=== PATIENT | male | born 1965 | race Caucasian/White ===

== ENCOUNTER 2021-09-17 18:51 | Inpatient (IN) | payer MEDICARE, MEDICAID ==
[~2021-09-17] VITALS: Ht 175.3 cm; Wt 101.2 kg
[~2021-09-17 18:51] MED LIST: BENZ1TAB7 PO; DIVA-18 PO; LOSA25TA26 PO; PHEN100O2 PO; PHEN32.46 PO; RISP2TAB85 PO; SERT100T PO
[2021-09-17] MEDS ORDERED: ACETAMINOPHEN 325MG TABLET PO STA (20:22)
[2021-09-17] MEDS ORDERED: LACTATED RINGERS 2,200 ML IV STA (20:27)
[2021-09-17] MEDS ORDERED: MIDAZOLAM HCL 2 MG/2 ML VIAL IV ONE (20:30)
[2021-09-17] MEDS ORDERED: HALOPERIDOL LACTATE 5MG/ML VIAL IM ONE (20:30)
[2021-09-17] MEDS ORDERED: CEFTRIAXONE 1 G PREMIX 50 ML IV ONE (20:30)
[2021-09-17 21:08] LABS: HEMATOCRIT. 40.1 % (42.0-52.0); HEMOGLOBIN. 13.8 g/dL (14.0-18.0); MEAN CORPUSCULAR HEMOGLOBIN 35.8 pg (28.0-32.0); MEAN CORPUSCULAR VOLUME 103.7 fL (80.0-94.0); MEAN PLATELET VOLUME 8.3 fl (7.4-10.4); PLATELET 81 x1000/uL (130-400); RED BLOOD CELL COUNT 3.87 mill/uL (4.7-6.1); RED CELL DISTRIBUTION WIDTH 13.4 % (11.6-14.6)
[2021-09-17 21:14] LABS: CHLORIDE 103 mEq/L (98-107)
[2021-09-17 21:32] LABS: PLATELET ESTIMATE DECREASED
[2021-09-17] MEDS ORDERED: VANCOMYCIN 1 G PREMIX 200 ML IV SCH (23:00)
[2021-09-17 23:37] LABS: CLARITY URINE CLEAR (CLEAR); COLOR URINE YELLOW (YELLOW); KETONES URINE NEGATIVE (NEGATIVE); LEUKOCYTE ESTERASE URINE NEGATIVE (NEGATIVE); NITRITE URINE NEGATIVE (NEGATIVE); OCCULT BLOOD URINE NEGATIVE (NEGATIVE); PH URINE 5.5 (4.5-8.0); PROTEIN URINE NEGATIVE (NEGATIVE)
[2021-09-18] MEDS ORDERED: LORAZEPAM 2MG/ML CPJ IV ONE (02:15)
[2021-09-18] MEDS ORDERED: HALOPERIDOL LACTATE 5MG/ML VIAL IM ONE (02:15)
[2021-09-18] MEDS ORDERED: LIDOCAINE HCL/EPINEPHRINE 1%-EPI 1:100,000 50 ML VIAL INFIL ONE (03:45)
[2021-09-18] MEDS ORDERED: LIDOCAINE HCL 1% 10 MG/ML 10ML VIAL IJ SCH (04:00)
[2021-09-18] MEDS ORDERED: NITROGLYCERIN 0.4MG TABLET SL SL PRN (07:15)
[2021-09-18] MEDS ORDERED: MAGNESIUM/ALUMINUM HYDROXIDE/SIMETHICONE 30ML UDC PO PRN (07:15)
[2021-09-18] MEDS ORDERED: IPRATROPIUM/ALBUTEROL 0.5-3(2.5)MG/3ML NEB NEB PRN (07:15)
[2021-09-18] MEDS ORDERED: ONDANSETRON HCL 4MG/2ML INJ IV PRN (07:15)
[2021-09-18] MEDS ORDERED: CEFTRIAXONE 1 G PREMIX 50 ML IV SCH (08:00)
[2021-09-18] MEDS: KETOROLAC 15MG/ML VIAL IV PRN (08:36)
[2021-09-18] MEDS: SODIUM CHLORIDE 0.9% 1,000 ML IV SCH ×2 (08:36→16:18)
[2021-09-18] MEDS ORDERED: LEVOFLOXACIN 500MG PREMIX 100 ML IV SCH (09:00)
[2021-09-18] MEDS: CHOLECALCIFEROL (D3) 1000 UNIT TABLET PO SCH (10:07)
[2021-09-18] MEDS: ASPIRIN 325MG EC TABLET PO SCH (10:07)
[2021-09-18] MEDS: ASCORBIC ACID 500 MG TABLET PO SCH ×2 (10:07→21:11)
[2021-09-18] MEDS: FAMOTIDINE 20MG TABLET PO SCH ×2 (10:07→21:11)
[2021-09-18] MEDS: ENOXAPARIN 40MG/0.4ML SYR SUBCUT SCH (10:07)
[2021-09-18] MEDS: ZINC SULFATE 220 MG ( 50 ) CAPSULE PO SCH (10:08)
[2021-09-18 10:27] VITALS: BP 107/73
[2021-09-18 12:00] VITALS: BP 107/73
[2021-09-18] MEDS ORDERED: NALOXONE HCL 0.4MG/ML VIAL IV PRN (15:15)
[2021-09-18 15:46] VITALS: BP 118/71
[2021-09-18] MEDS ORDERED: INFLUENZA VACCINE 05/PF 0.5 ML SYRINGE IM ONE (16:00)
[2021-09-18] MEDS: ACETAMINOPHEN 325MG TABLET PO PRN (16:13)
[2021-09-18 16:39] LABS: CREATINE KINASE 197 IU/L (39-308)
[2021-09-18 16:40] LABS: CREATINE KINASE MB FRACTION < 1.0 ng/mL (0.5-3.6)
[2021-09-18] MEDS ORDERED: LURA80TA MT (17:01)
[2021-09-18] MEDS ORDERED: METO25TA6 MT (17:01)
[2021-09-18] MEDS ORDERED: DIVA500T3 MT (17:04)
[2021-09-18 20:00] VITALS: BP 169/89
[2021-09-18] MEDS: CLONIDINE 0.1MG TABLET PO PRN (21:11)
[2021-09-18] MEDS: ZOLPIDEM TARTRATE 5MG TABLET PO PRN (23:43)
[2021-09-18] MEDS ORDERED: QUET300T20 PO (23:48)
[2021-09-19] VITALS: BP 116/86
[2021-09-19 00:29] LABS: CREATINE KINASE 195 IU/L (39-308)
[2021-09-19 00:30] LABS: CREATINE KINASE MB FRACTION 1.7 ng/mL (0.5-3.6)
[2021-09-19] MEDS: SODIUM CHLORIDE 0.9% 1,000 ML IV SCH ×2 (03:13→16:18)
[2021-09-19 04:00] VITALS: BP 157/76
[2021-09-19] MEDS: TRAMADOL 50MG TABLET PO PRN (06:30)
[2021-09-19 08:00] VITALS: BP 124/84
[2021-09-19 08:17] LABS: HEMATOCRIT. 38.2 % (42.0-52.0); HEMOGLOBIN. 13.3 g/dL (14.0-18.0); MEAN CORPUSCULAR VOLUME 103.8 fL (80.0-94.0); PLATELET 92 x1000/uL (130-400); RED BLOOD CELL COUNT 3.69 mill/uL (4.7-6.1); RED CELL DISTRIBUTION WIDTH 13.4 % (11.6-14.6)
[2021-09-19 09:09] LABS: CHLORIDE 109 mEq/L (98-107)
[2021-09-19 09:34] LABS: PHOSPHORUS 3.1 mg/dL (2.5-4.9)
[2021-09-19 09:35] LABS: LDL CHOLESTEROL 89 mg/dL (5-100)
[2021-09-19 09:36] LABS: T4 FREE 1.22 ng/dL (0.76-1.46)
[2021-09-19 09:38] LABS: HDL CHOLESTEROL 41 mg/dL (40-59)
[2021-09-19] MEDS: CHOLECALCIFEROL (D3) 1000 UNIT TABLET PO SCH (11:03)
[2021-09-19] MEDS: DIVALPROEX SODIUM 500MG DR TABLET PO SCH ×2 (11:04→16:40)
[2021-09-19] MEDS: FAMOTIDINE 20MG TABLET PO SCH ×2 (11:04→21:16)
[2021-09-19] MEDS: ASPIRIN 325MG EC TABLET PO SCH (11:04)
[2021-09-19] MEDS: ZINC SULFATE 220 MG ( 50 ) CAPSULE PO SCH (11:04)
[2021-09-19] MEDS: ASCORBIC ACID 500 MG TABLET PO SCH ×2 (11:04→21:16)
[2021-09-19] MEDS: METOPROLOL TARTRATE 25MG TABLET PO SCH (11:05)
[2021-09-19] MEDS: LEVOFLOXACIN 500MG PREMIX 100 ML IV SCH (11:06)
[2021-09-19] MEDS: CEFTRIAXONE 1,000 MG in DEXTROSE 5% WATER 50 ML IV SCH (11:06)
[2021-09-19] MEDS: LATUDA 40 MG PO SCH (11:07)
[2021-09-19] MEDS: ENOXAPARIN 40MG/0.4ML SYR SUBCUT SCH (11:12)
[2021-09-19 12:00] VITALS: BP 141/88
[2021-09-19 16:00] VITALS: BP 129/61
[2021-09-19] MEDS: KETOROLAC 15MG/ML VIAL IV PRN ×2 (16:08→22:06)
[2021-09-19] MEDS: BENZTROPINE MESYLATE 1MG TABLET PO SCH (16:40)
[2021-09-19 18:52] LABS: PLATELET ESTIMATE DECREASED
[2021-09-19 20:00] VITALS: BP 130/87
[2021-09-19] MEDS: ZOLPIDEM TARTRATE 5MG TABLET PO PRN (22:06)
[2021-09-20] VITALS: BP 133/90
[2021-09-20 04:00] VITALS: BP 136/82
[2021-09-20] MEDS: KETOROLAC 15MG/ML VIAL IV PRN ×3 (04:34→18:41)
[2021-09-20] MEDS: SODIUM CHLORIDE 0.9% 1,000 ML IV SCH ×2 (06:22)
[2021-09-20 08:00] VITALS: BP 138/88
[2021-09-20] MEDS: CEFTRIAXONE 1,000 MG in DEXTROSE 5% WATER 50 ML IV SCH (08:39)
[2021-09-20] MEDS: LEVOFLOXACIN 500MG PREMIX 100 ML IV SCH (08:40)
[2021-09-20] MEDS: DIVALPROEX SODIUM 500MG DR TABLET PO SCH ×2 (08:41→18:40)
[2021-09-20] MEDS: CHOLECALCIFEROL (D3) 1000 UNIT TABLET PO SCH (08:42)
[2021-09-20] MEDS: FAMOTIDINE 20MG TABLET PO SCH ×2 (08:42→21:17)
[2021-09-20] MEDS: ASCORBIC ACID 500 MG TABLET PO SCH ×2 (08:42→21:17)
[2021-09-20] MEDS: ZINC SULFATE 220 MG ( 50 ) CAPSULE PO SCH (08:43)
[2021-09-20] MEDS: ENOXAPARIN 40MG/0.4ML SYR SUBCUT SCH (08:45)
[2021-09-20] MEDS: METOPROLOL TARTRATE 25MG TABLET PO SCH (08:45)
[2021-09-20] MEDS: LATUDA 40 MG PO SCH (08:47)
[2021-09-20] MEDS: DOCUSATE SODIUM 100MG CAPSULE PO PRN (08:47)
[2021-09-20 12:00] VITALS: BP 122/78
[2021-09-20] MEDS ORDERED: FUROSEMIDE 20MG/2ML VIAL IVP SCH (12:15)
[2021-09-20 16:00] VITALS: BP 131/82
[2021-09-20 17:30] LABS: HEMATOCRIT. 38.5 % (42.0-52.0); HEMOGLOBIN. 13.2 g/dL (14.0-18.0); MEAN CORPUSCULAR HEMOGLOBIN 35.4 pg (28.0-32.0); MEAN CORPUSCULAR VOLUME 103.3 fL (80.0-94.0); MEAN PLATELET VOLUME 7.1 fl (7.4-10.4); PLATELET 133 x1000/uL (130-400); RED BLOOD CELL COUNT 3.73 mill/uL (4.7-6.1); RED CELL DISTRIBUTION WIDTH 13.3 % (11.6-14.6)
[2021-09-20 17:40] LABS: CHLORIDE 104 mEq/L (98-107)
[2021-09-20] MEDS: BENZTROPINE MESYLATE 1MG TABLET PO SCH (18:40)
[2021-09-20 18:49] LABS: PLATELET ESTIMATE NORMAL
[2021-09-20 20:40] VITALS: BP 158/100
[2021-09-20] MEDS: ZOLPIDEM TARTRATE 5MG TABLET PO PRN (21:18)
[2021-09-21 00:19] VITALS: BP 141/93
[2021-09-21 04:00] VITALS: BP 142/93
[2021-09-21 08:00] VITALS: BP 140/96
[2021-09-21] MEDS: LATUDA 40 MG PO SCH (09:00)
[2021-09-21] MEDS: ENOXAPARIN 40MG/0.4ML SYR SUBCUT SCH (09:29)
[2021-09-21] MEDS: CEFTRIAXONE 1,000 MG in DEXTROSE 5% WATER 50 ML IV SCH (09:29)
[2021-09-21] MEDS: FAMOTIDINE 20MG TABLET PO SCH ×2 (09:30→22:11)
[2021-09-21] MEDS: ZINC SULFATE 220 MG ( 50 ) CAPSULE PO SCH (09:30)
[2021-09-21] MEDS: METOPROLOL TARTRATE 25MG TABLET PO SCH (09:30)
[2021-09-21] MEDS: DIVALPROEX SODIUM 500MG DR TABLET PO SCH (09:30)
[2021-09-21] MEDS: ASPIRIN 325MG EC TABLET PO SCH ×2 (09:30→13:22)
[2021-09-21] MEDS: ASCORBIC ACID 500 MG TABLET PO SCH ×2 (09:30→22:11)
[2021-09-21] MEDS: CHOLECALCIFEROL (D3) 1000 UNIT TABLET PO SCH (09:32)
[2021-09-21 12:00] VITALS: BP 143/80
[2021-09-21 12:15] LABS: BG BASE EXCESS -0.9 mmol/L (-2.0-2.0); BG DEOXYHEMOGLOBIN 4.1 % (0.0-5.0); BG FRACTION INSPIRED OXYGEN 32; BG HCO3 ACT 21.5 mmol/L (22.0-26.0); BG METHEMOGLOBIN 0.2 % (0.0-1.5); BG OXYGEN SATURATION 95.9 % (92.0-98.5); BG OXYHEMOGLOBIN 94.7 % (94.0-97.0); BG PCO2 29.6 mmHg (35.0-45.0); BG PH 7.478 (7.350-7.450); BG PO2 77.3 mmHg (75.0-100.0); BG SAMPLE SITE RIGHT RADIAL; BG TOTAL HEMOGLOBIN 14.1 g/dL (12.0-18.0); BG VENT MODE NASAL CANNULA
[2021-09-21] MEDS ORDERED: ACETAMINOPHEN 650MG SUPP PR NR (12:45)
[2021-09-21] MEDS: LEVOFLOXACIN 500MG PREMIX 100 ML IV SCH (13:21)
[2021-09-21] MEDS: KETOROLAC 15MG/ML VIAL IV PRN (13:59)
[2021-09-21 16:00] VITALS: BP 131/89
[2021-09-21 20:00] VITALS: BP 138/94
[2021-09-21] MEDS ORDERED: VANCOMYCIN 1500MG in DEXTROSE 5% WATER 250ML IV NR (20:00)
[2021-09-21] MEDS: CEFEPIME 1,000 MG in DEXTROSE 5% WATER 50 ML IV SCH (22:10)
[2021-09-21] MEDS: VALPROATE SODIUM 250MG/5ML UDC PO SCH (22:10)
[2021-09-21] MEDS: BENZTROPINE MESYLATE 1MG TABLET PO SCH (22:11)
[2021-09-21] MEDS: ZOLPIDEM TARTRATE 5MG TABLET PO PRN (22:39)
[2021-09-21] MEDS: TRAMADOL 50MG TABLET PO PRN (22:41)
[2021-09-22] VITALS: BP 128/90
[2021-09-22] MEDS: SODIUM CHLORIDE 0.45% 1,000 ML IV SCH (03:40)
[2021-09-22 04:00] VITALS: BP 136/83
[2021-09-22] MEDS: ACETAMINOPHEN 325MG TABLET PO PRN ×3 (04:03→18:48)
[2021-09-22] MEDS: LORAZEPAM 2MG/ML CPJ IV PRN ×2 (04:21→17:14)
[2021-09-22] MEDS: CEFEPIME 1,000 MG in DEXTROSE 5% WATER 50 ML IV SCH ×2 (05:47→22:04)
[2021-09-22 06:52] LABS: HEMATOCRIT. 38.7 % (42.0-52.0); HEMOGLOBIN. 13.1 g/dL (14.0-18.0); MEAN CORPUSCULAR HEMOGLOBIN 35.3 pg (28.0-32.0); MEAN CORPUSCULAR VOLUME 104.6 fL (80.0-94.0); MEAN PLATELET VOLUME 7.4 fl (7.4-10.4); PLATELET 138 x1000/uL (130-400); RED CELL DISTRIBUTION WIDTH 13.6 % (11.6-14.6)
[2021-09-22 07:06] LABS: PHOSPHORUS 2.2 mg/dL (2.5-4.9)
[2021-09-22] MEDS ORDERED: VANCOMYCIN 1 G PREMIX 200 ML IV SCH (08:00)
[2021-09-22] MEDS: GUAIFENESIN 200MG/10ML SUGAR FREE UDC PO PRN (09:37)
[2021-09-22] MEDS: LATUDA 40 MG PO SCH (09:37)
[2021-09-22] MEDS: ZINC SULFATE 220 MG ( 50 ) CAPSULE PO SCH (09:38)
[2021-09-22] MEDS: ENOXAPARIN 30MG/0.3ML SYR SUBCUT SCH ×2 (09:38→22:05)
[2021-09-22] MEDS: ASCORBIC ACID 500 MG TABLET PO SCH ×2 (09:39→22:04)
[2021-09-22] MEDS: CHOLECALCIFEROL (D3) 1000 UNIT TABLET PO SCH (09:39)
[2021-09-22] MEDS: METOPROLOL TARTRATE 25MG TABLET PO SCH (09:39)
[2021-09-22] MEDS: ASPIRIN 325MG EC TABLET PO SCH (09:39)
[2021-09-22] MEDS: VALPROATE SODIUM 250MG/5ML UDC PO SCH ×2 (09:40→18:45)
[2021-09-22] MEDS: FAMOTIDINE 20MG TABLET PO SCH ×2 (09:40→22:04)
[2021-09-22] MEDS ORDERED: POTASSIUM PHOS,M-BASIC-D-BASIC 20 MMOL in DEXT 5% WATER 243.3333 ML IV SCH (12:00)
[2021-09-22] MEDS: VANCOMYCIN 1250MG in DEXTROSE 5% WATER 250ML IV SCH (13:02)
[2021-09-22 13:09] LABS: PLATELET ESTIMATE NORMAL
[2021-09-22] MEDS: BENZTROPINE MESYLATE 1MG TABLET PO SCH (18:45)
[2021-09-22 20:00] VITALS: BP 134/83
[2021-09-22] MEDS ORDERED: IOHEXOL-350 100 ML BOTTLE ONE (20:56)
[2021-09-23] VITALS: BP 136/79
[2021-09-23] MEDS: ACETAMINOPHEN 325MG TABLET PO PRN ×3 (00:02→16:54)
[2021-09-23 04:00] VITALS: BP 131/48
[2021-09-23] MEDS: SODIUM CHLORIDE 0.45% 1,000 ML IV SCH ×2 (04:53→16:54)
[2021-09-23] MEDS: VANCOMYCIN 1250MG in DEXTROSE 5% WATER 250ML IV SCH ×2 (05:59→23:24)
[2021-09-23 07:50] LABS: HEMOGLOBIN. 12.8 g/dL (14.0-18.0); MEAN CORPUSCULAR HEMOGLOBIN 35.5 pg (28.0-32.0); MEAN CORPUSCULAR VOLUME 105.3 fL (80.0-94.0); MEAN PLATELET VOLUME 7.7 fl (7.4-10.4); PLATELET 129 x1000/uL (130-400); RED BLOOD CELL COUNT 3.61 mill/uL (4.7-6.1); RED CELL DISTRIBUTION WIDTH 13.5 % (11.6-14.6)
[2021-09-23 08:08] LABS: PHOSPHORUS 4.1 mg/dL (2.5-4.9)
[2021-09-23 08:30] VITALS: BP 159/95
[2021-09-23] MEDS: CEFEPIME 1,000 MG in DEXTROSE 5% WATER 50 ML IV SCH ×2 (08:38→17:33)
[2021-09-23] MEDS: ZINC SULFATE 220 MG ( 50 ) CAPSULE PO SCH (08:38)
[2021-09-23] MEDS: ENOXAPARIN 30MG/0.3ML SYR SUBCUT SCH ×2 (08:38→21:28)
[2021-09-23] MEDS: LATUDA 40 MG PO SCH (08:38)
[2021-09-23] MEDS: VALPROATE SODIUM 250MG/5ML UDC PO SCH ×2 (08:38→16:53)
[2021-09-23] MEDS: FAMOTIDINE 20MG TABLET PO SCH ×2 (08:39→21:28)
[2021-09-23] MEDS: CHOLECALCIFEROL (D3) 1000 UNIT TABLET PO SCH (08:39)
[2021-09-23] MEDS: ASPIRIN 325MG EC TABLET PO SCH (08:39)
[2021-09-23] MEDS: METOPROLOL TARTRATE 25MG TABLET PO SCH (08:39)
[2021-09-23] MEDS: ASCORBIC ACID 500 MG TABLET PO SCH ×2 (08:39→21:28)
[2021-09-23] MEDS ORDERED: POTASSIUM CHLORIDE 20MEQ/PACKET PO SCH (09:15)
[2021-09-23] MEDS: IPRATROPIUM BROMIDE (0.02%) 0.5MG/2.5ML NEB HHN SCH ×3 (09:28→21:00)
[2021-09-23 12:00] VITALS: BP 132/88
[2021-09-23] MEDS ORDERED: SODIUM CHLORIDE 0.9% 1,000 ML IV SCH (12:45)
[2021-09-23 16:00] VITALS: BP 143/83
[2021-09-23 16:35] LABS: PLATELET ESTIMATE SLIGHTLY DECREASED
[2021-09-23] MEDS: BENZTROPINE MESYLATE 1MG TABLET PO SCH (16:54)
[2021-09-23 20:42] VITALS: BP 135/90
[2021-09-23] MEDS: NYSTATIN POWDER 15GM TOP SCH (21:28)
[2021-09-23] MEDS: LORAZEPAM 2MG/ML CPJ IV PRN (21:41)
[2021-09-24 00:09] VITALS: BP 145/89
[2021-09-24] MEDS: SODIUM CHLORIDE 0.45% 1,000 ML IV SCH ×4 (01:20→19:55)
[2021-09-24] MEDS: IPRATROPIUM BROMIDE (0.02%) 0.5MG/2.5ML NEB HHN SCH ×4 (02:46→21:08)
[2021-09-24 04:00] VITALS: BP 135/85
[2021-09-24] MEDS: CEFEPIME 1,000 MG in DEXTROSE 5% WATER 50 ML IV SCH ×2 (05:36→17:40)
[2021-09-24 07:25] LABS: HEMATOCRIT. 35.7 % (42.0-52.0); HEMOGLOBIN. 12.2 g/dL (14.0-18.0); MEAN CORPUSCULAR HEMOGLOBIN 35.5 pg (28.0-32.0); MEAN CORPUSCULAR VOLUME 103.7 fL (80.0-94.0); MEAN PLATELET VOLUME 7.6 fl (7.4-10.4); PLATELET 131 x1000/uL (130-400); RED BLOOD CELL COUNT 3.45 mill/uL (4.7-6.1); RED CELL DISTRIBUTION WIDTH 13.9 % (11.6-14.6)
[2021-09-24 08:00] VITALS: BP 137/84
[2021-09-24] MEDS: METOPROLOL TARTRATE 25MG TABLET PO SCH (08:40)
[2021-09-24] MEDS: ZINC SULFATE 220 MG ( 50 ) CAPSULE PO SCH (08:40)
[2021-09-24] MEDS: FAMOTIDINE 20MG TABLET PO SCH ×2 (08:40→19:56)
[2021-09-24] MEDS: VALPROATE SODIUM 250MG/5ML UDC PO SCH ×2 (08:41→17:39)
[2021-09-24] MEDS: CHOLECALCIFEROL (D3) 1000 UNIT TABLET PO SCH (08:41)
[2021-09-24] MEDS: LATUDA 40 MG PO SCH (08:41)
[2021-09-24] MEDS: ASCORBIC ACID 500 MG TABLET PO SCH ×2 (08:41→19:56)
[2021-09-24] MEDS: ASPIRIN 325MG EC TABLET PO SCH (08:41)
[2021-09-24] MEDS: NYSTATIN POWDER 15GM TOP SCH ×2 (08:42→17:40)
[2021-09-24] MEDS: ENOXAPARIN 30MG/0.3ML SYR SUBCUT SCH ×2 (08:42→19:56)
[2021-09-24] MEDS: ACETAMINOPHEN 325MG TABLET PO PRN (08:43)
[2021-09-24 11:36] LABS: PLATELET ESTIMATE NORMAL
[2021-09-24 12:00] VITALS: BP 122/84
[2021-09-24 16:00] VITALS: BP 131/87
[2021-09-24] MEDS: BENZTROPINE MESYLATE 1MG TABLET PO SCH (17:40)
[2021-09-24] MEDS: VANCOMYCIN 1 G PREMIX 200 ML IV SCH (19:55)
[2021-09-24 20:00] VITALS: BP 146/90
[2021-09-25] VITALS: BP 132/76
[2021-09-25] MEDS: IPRATROPIUM BROMIDE (0.02%) 0.5MG/2.5ML NEB HHN SCH ×4 (02:10→20:52)
[2021-09-25 04:00] VITALS: BP 164/89
[2021-09-25] MEDS: SODIUM CHLORIDE 0.45% 1,000 ML IV SCH ×2 (04:38→08:35)
[2021-09-25 05:29] LABS: CLARITY URINE CLOUDY (CLEAR); COLOR URINE DARK YELLOW (YELLOW); KETONES URINE NEGATIVE (NEGATIVE); LEUKOCYTE ESTERASE URINE 1+ (NEGATIVE); NITRITE URINE NEGATIVE (NEGATIVE); OCCULT BLOOD URINE 3+ (NEGATIVE); PROTEIN URINE 1+ (NEGATIVE); SPECIFIC GRAVITY URINE 1.025 (1.005-1.030)
[2021-09-25] MEDS: LORAZEPAM 2MG/ML CPJ IV PRN (05:49)
[2021-09-25] MEDS: CEFEPIME 1,000 MG in DEXTROSE 5% WATER 50 ML IV SCH ×2 (05:49→18:39)
[2021-09-25] MEDS: CLONIDINE 0.1MG TABLET PO PRN (05:50)
[2021-09-25 06:57] LABS: HEMATOCRIT. 35.7 % (42.0-52.0); HEMOGLOBIN. 12.1 g/dL (14.0-18.0); MEAN CORPUSCULAR HEMOGLOBIN 35.6 pg (28.0-32.0); MEAN PLATELET VOLUME 7.9 fl (7.4-10.4); PLATELET 137 x1000/uL (130-400); RED CELL DISTRIBUTION WIDTH 13.4 % (11.6-14.6)
[2021-09-25 07:12] LABS: CHLORIDE 112 mEq/L (98-107)
[2021-09-25 08:00] VITALS: BP 145/86
[2021-09-25] MEDS: ACETAMINOPHEN 325MG TABLET PO PRN (08:04)
[2021-09-25] MEDS: VALPROATE SODIUM 250MG/5ML UDC PO SCH ×2 (08:35→18:39)
[2021-09-25] MEDS: ENOXAPARIN 30MG/0.3ML SYR SUBCUT SCH ×2 (08:35→21:00)
[2021-09-25] MEDS: ASCORBIC ACID 500 MG TABLET PO SCH ×2 (08:35→20:59)
[2021-09-25] MEDS: ASPIRIN 325MG EC TABLET PO SCH (08:36)
[2021-09-25] MEDS: METOPROLOL TARTRATE 25MG TABLET PO SCH (08:36)
[2021-09-25] MEDS: ZINC SULFATE 220 MG ( 50 ) CAPSULE PO SCH (08:36)
[2021-09-25] MEDS: FAMOTIDINE 20MG TABLET PO SCH ×2 (08:36→20:59)
[2021-09-25] MEDS: CHOLECALCIFEROL (D3) 1000 UNIT TABLET PO SCH (08:39)
[2021-09-25] MEDS: NYSTATIN POWDER 15GM TOP SCH ×2 (08:42→18:40)
[2021-09-25] MEDS: LATUDA 40 MG PO SCH (08:42)
[2021-09-25] MEDS: FUROSEMIDE 40MG/4ML VIAL IVP SCH (10:54)
[2021-09-25] MEDS: TAMSULOSIN HCL 0.4MG SR CAPSULE PO SCH (10:59)
[2021-09-25 11:26] LABS: PLATELET ESTIMATE NORMAL
[2021-09-25 12:00] VITALS: BP 115/73
[2021-09-25 16:00] VITALS: BP 124/76
[2021-09-25] MEDS: BENZTROPINE MESYLATE 1MG TABLET PO SCH (18:40)
[2021-09-25 20:00] VITALS: BP 129/82
[2021-09-25] MEDS: VANCOMYCIN 1 G PREMIX 200 ML IV SCH (21:00)
[2021-09-26] VITALS: BP 125/87
[2021-09-26 04:00] VITALS: BP 140/85
[2021-09-26] MEDS: IPRATROPIUM BROMIDE (0.02%) 0.5MG/2.5ML NEB HHN SCH ×4 (04:56→21:52)
[2021-09-26 06:18] LABS: HEMATOCRIT. 34.7 % (42.0-52.0); HEMOGLOBIN. 11.9 g/dL (14.0-18.0); MEAN CORPUSCULAR HEMOGLOBIN 35.5 pg (28.0-32.0); MEAN CORPUSCULAR VOLUME 103.5 fL (80.0-94.0); MEAN PLATELET VOLUME 8.2 fl (7.4-10.4); PLATELET 163 x1000/uL (130-400); RED BLOOD CELL COUNT 3.35 mill/uL (4.7-6.1); RED CELL DISTRIBUTION WIDTH 13.5 % (11.6-14.6)
[2021-09-26 06:23] LABS: CHLORIDE 111 mEq/L (98-107)
[2021-09-26] MEDS: CEFEPIME 1,000 MG in DEXTROSE 5% WATER 50 ML IV SCH ×2 (06:26→18:31)
[2021-09-26 06:29] LABS: PHOSPHORUS 3.1 mg/dL (2.5-4.9)
[2021-09-26 08:00] VITALS: BP 143/82
[2021-09-26] MEDS: VALPROATE SODIUM 250MG/5ML UDC PO SCH ×2 (09:17→18:31)
[2021-09-26] MEDS: ENOXAPARIN 30MG/0.3ML SYR SUBCUT SCH ×2 (09:17→20:55)
[2021-09-26] MEDS: TAMSULOSIN HCL 0.4MG SR CAPSULE PO SCH (09:18)
[2021-09-26] MEDS: DOCUSATE SODIUM 100MG CAPSULE PO PRN (09:18)
[2021-09-26] MEDS: CHOLECALCIFEROL (D3) 1000 UNIT TABLET PO SCH (09:18)
[2021-09-26] MEDS: ASPIRIN 325MG EC TABLET PO SCH (09:19)
[2021-09-26] MEDS: ACETAMINOPHEN 325MG TABLET PO PRN ×2 (09:19→21:00)
[2021-09-26] MEDS: FAMOTIDINE 20MG TABLET PO SCH ×2 (09:19→20:55)
[2021-09-26] MEDS: METOPROLOL TARTRATE 25MG TABLET PO SCH (09:19)
[2021-09-26] MEDS: ZINC SULFATE 220 MG ( 50 ) CAPSULE PO SCH (09:19)
[2021-09-26] MEDS: FUROSEMIDE 40MG/4ML VIAL IVP SCH (09:19)
[2021-09-26] MEDS: ASCORBIC ACID 500 MG TABLET PO SCH ×2 (09:19→20:54)
[2021-09-26] MEDS: NYSTATIN POWDER 15GM TOP SCH ×2 (09:21→18:31)
[2021-09-26] MEDS: LATUDA 40 MG PO SCH (09:22)
[2021-09-26 12:00] VITALS: BP 148/91
[2021-09-26 13:47] LABS: PLATELET ESTIMATE NORMAL
[2021-09-26] MEDS: VANCOMYCIN 1250MG in DEXTROSE 5% WATER 250ML IV SCH (13:52)
[2021-09-26 16:00] VITALS: BP 133/79
[2021-09-26] MEDS: BENZTROPINE MESYLATE 1MG TABLET PO SCH (18:30)
[2021-09-26 20:00] VITALS: BP 127/83
[2021-09-26] MEDS: GUAIFENESIN 200MG/10ML SUGAR FREE UDC PO PRN (20:54)
[2021-09-26] MEDS ORDERED: LORAZEPAM 2MG/ML CPJ IV PRN (23:00)
[2021-09-27] VITALS: BP 135/79
[2021-09-27] MEDS: IPRATROPIUM BROMIDE (0.02%) 0.5MG/2.5ML NEB HHN SCH ×4 (00:57→21:14)
[2021-09-27 04:00] VITALS: BP 133/87
[2021-09-27] MEDS: CEFEPIME 1,000 MG in DEXTROSE 5% WATER 50 ML IV SCH ×2 (05:43→17:30)
[2021-09-27] MEDS: VANCOMYCIN 1250MG in DEXTROSE 5% WATER 250ML IV SCH (06:35)
[2021-09-27 07:58] LABS: CHLORIDE 109 mEq/L (98-107)
[2021-09-27 08:00] VITALS: BP 128/75
[2021-09-27] MEDS: FUROSEMIDE 40MG/4ML VIAL IVP SCH (10:05)
[2021-09-27] MEDS: LATUDA 40 MG PO SCH (10:05)
[2021-09-27] MEDS: ENOXAPARIN 30MG/0.3ML SYR SUBCUT SCH ×2 (10:05→20:38)
[2021-09-27] MEDS: FAMOTIDINE 20MG TABLET PO SCH ×2 (10:06→20:37)
[2021-09-27] MEDS: CHOLECALCIFEROL (D3) 1000 UNIT TABLET PO SCH (10:06)
[2021-09-27] MEDS: METOPROLOL TARTRATE 25MG TABLET PO SCH (10:06)
[2021-09-27] MEDS: ASCORBIC ACID 500 MG TABLET PO SCH ×2 (10:06→20:37)
[2021-09-27] MEDS: ZINC SULFATE 220 MG ( 50 ) CAPSULE PO SCH (10:06)
[2021-09-27] MEDS: ASPIRIN 325MG TABLET NG SCH (10:07)
[2021-09-27] MEDS: GUAIFENESIN 200MG/10ML SUGAR FREE UDC PO PRN ×2 (10:07→21:23)
[2021-09-27] MEDS: NYSTATIN POWDER 15GM TOP SCH ×2 (10:08→17:28)
[2021-09-27] MEDS: VALPROATE SODIUM 250MG/5ML UDC PO SCH ×2 (10:08→17:28)
[2021-09-27 11:14] LABS: CREATINE KINASE 493 IU/L (39-308)
[2021-09-27 12:00] VITALS: BP 134/84
[2021-09-27 16:00] VITALS: BP 125/83
[2021-09-27] MEDS: BENZTROPINE MESYLATE 1MG TABLET PO SCH (17:28)
[2021-09-27 20:00] VITALS: BP 100/69
[2021-09-27] MEDS: LORAZEPAM 2MG/ML CPJ IV PRN (20:37)
[2021-09-27] MEDS: ACETAMINOPHEN 325MG TABLET PO PRN (23:21)
[2021-09-27] MEDS ORDERED: PHENAZOPYRIDINE HCL 100MG TABLET PO NR (23:45)
[2021-09-28] VITALS: BP 122/82
[2021-09-28] MEDS: VANCOMYCIN 1250MG in DEXTROSE 5% WATER 250ML IV SCH (01:03)
[2021-09-28] MEDS: IPRATROPIUM BROMIDE (0.02%) 0.5MG/2.5ML NEB HHN SCH ×3 (01:13→16:36)
[2021-09-28] MEDS: ACETYLCYSTEINE 100MG/ML 10% VIAL 4ML INH SCH ×3 (01:13→16:36)
[2021-09-28 04:00] VITALS: BP 150/72
[2021-09-28] MEDS: CEFEPIME 1,000 MG in DEXTROSE 5% WATER 50 ML IV SCH (06:20)
[2021-09-28 08:30] VITALS: BP 138/88
[2021-09-28] MEDS: VALPROATE SODIUM 250MG/5ML UDC PO SCH ×2 (09:35→17:49)
[2021-09-28] MEDS: NYSTATIN POWDER 15GM TOP SCH ×2 (09:35→17:50)
[2021-09-28] MEDS: LATUDA 40 MG PO SCH (09:35)
[2021-09-28] MEDS: FUROSEMIDE 40MG/4ML VIAL IVP SCH (09:35)
[2021-09-28] MEDS: ASPIRIN 325MG TABLET NG SCH (09:36)
[2021-09-28] MEDS: ZINC SULFATE 220 MG ( 50 ) CAPSULE PO SCH (09:37)
[2021-09-28] MEDS: FAMOTIDINE 20MG TABLET PO SCH ×2 (09:37→22:16)
[2021-09-28] MEDS: CHOLECALCIFEROL (D3) 1000 UNIT TABLET PO SCH (09:37)
[2021-09-28] MEDS: METOPROLOL TARTRATE 25MG TABLET PO SCH (09:37)
[2021-09-28] MEDS: ASCORBIC ACID 500 MG TABLET PO SCH ×2 (09:37→22:16)
[2021-09-28 10:11] LABS: HEMATOCRIT. 37.6 % (42.0-52.0); HEMOGLOBIN. 12.8 g/dL (14.0-18.0); MEAN CORPUSCULAR VOLUME 106.1 fL (80.0-94.0); MEAN PLATELET VOLUME 7.9 fl (7.4-10.4); PLATELET 289 x1000/uL (130-400); RED BLOOD CELL COUNT 3.54 mill/uL (4.7-6.1); RED CELL DISTRIBUTION WIDTH 13.3 % (11.6-14.6)
[2021-09-28 10:30] LABS: CHLORIDE 108 mEq/L (98-107)
[2021-09-28 10:42] LABS: CREATINE KINASE 303 IU/L (39-308)
[2021-09-28] MEDS: ENOXAPARIN 30MG/0.3ML SYR SUBCUT SCH ×2 (11:02→22:17)
[2021-09-28] MEDS ORDERED: HYDROCODONE/ACETAMINOPHEN 5/325MG TABLET PO PRN (11:15)
[2021-09-28] MEDS ORDERED: NALOXONE HCL 0.4MG/ML VIAL IV PRN (11:30)
[2021-09-28 12:00] VITALS: BP 123/91
[2021-09-28] MEDS: FUROSEMIDE 20MG TABLET PO SCH (13:36)
[2021-09-28 14:56] LABS: NUCLEATED RED BLOOD CELLS 1 /100 WBC; PLATELET ESTIMATE NORMAL
[2021-09-28] MEDS ORDERED: VANCOMYCIN 1 G PREMIX 200 ML IV SCH (15:00)
[2021-09-28 16:00] VITALS: BP 118/84
[2021-09-28] MEDS: BENZTROPINE MESYLATE 1MG TABLET PO SCH (17:49)
[2021-09-28] MEDS: LORAZEPAM 2MG/ML CPJ IV PRN (17:50)
[2021-09-28 20:00] VITALS: BP 127/77
[2021-09-29] VITALS: BP 151/90
[2021-09-29] MEDS: ACETAMINOPHEN 325MG TABLET PO PRN ×2 (00:15→12:43)
[2021-09-29] MEDS: LORAZEPAM 2MG/ML CPJ IV PRN (01:10)
[2021-09-29] MEDS: ACETYLCYSTEINE 100MG/ML 10% VIAL 4ML INH SCH ×2 (01:32→09:36)
[2021-09-29] MEDS: IPRATROPIUM BROMIDE (0.02%) 0.5MG/2.5ML NEB HHN SCH ×4 (01:32→21:42)
[2021-09-29 04:00] VITALS: BP 123/95
[2021-09-29] MEDS: CLONIDINE 0.1MG TABLET PO PRN (06:15)
[2021-09-29 06:24] LABS: HEMOGLOBIN. 12.7 g/dL (14.0-18.0); MEAN CORPUSCULAR HEMOGLOBIN 36.1 pg (28.0-32.0); MEAN CORPUSCULAR VOLUME 104.9 fL (80.0-94.0); MEAN PLATELET VOLUME 7.5 fl (7.4-10.4); PLATELET 327 x1000/uL (130-400); RED BLOOD CELL COUNT 3.53 mill/uL (4.7-6.1); RED CELL DISTRIBUTION WIDTH 13.9 % (11.6-14.6)
[2021-09-29 06:47] LABS: PHOSPHORUS 3.6 mg/dL (2.5-4.9)
[2021-09-29 08:00] VITALS: BP 119/71
[2021-09-29] MEDS: VALPROATE SODIUM 250MG/5ML UDC PO SCH ×2 (08:26→16:33)
[2021-09-29] MEDS: ASPIRIN 325MG TABLET NG SCH (08:26)
[2021-09-29] MEDS: CHOLECALCIFEROL (D3) 1000 UNIT TABLET PO SCH (08:26)
[2021-09-29] MEDS: METOPROLOL TARTRATE 25MG TABLET PO SCH (08:27)
[2021-09-29] MEDS: ZINC SULFATE 220 MG ( 50 ) CAPSULE PO SCH (08:27)
[2021-09-29] MEDS: FUROSEMIDE 20MG TABLET PO SCH (08:27)
[2021-09-29] MEDS: FAMOTIDINE 20MG TABLET PO SCH ×2 (08:27→20:59)
[2021-09-29] MEDS: ENOXAPARIN 30MG/0.3ML SYR SUBCUT SCH ×2 (08:27→20:59)
[2021-09-29] MEDS: NYSTATIN POWDER 15GM TOP SCH ×2 (08:29→16:33)
[2021-09-29] MEDS: ASCORBIC ACID 500 MG TABLET PO SCH ×2 (08:29→20:58)
[2021-09-29] MEDS: LATUDA 40 MG PO SCH (08:29)
[2021-09-29 12:00] VITALS: BP 125/74
[2021-09-29 16:00] VITALS: BP 104/60
[2021-09-29] MEDS: BENZTROPINE MESYLATE 1MG TABLET PO SCH (16:33)
[2021-09-29] MEDS: PIPERACILLIN/TAZOBACTAM 3.375 G in DEXTROSE 5% WATER 50 ML IV SCH (16:33)
[2021-09-29 18:11] LABS: PLATELET ESTIMATE NORMAL
[2021-09-29 20:00] VITALS: BP 126/83
[2021-09-29] MEDS: VANCOMYCIN 1250MG in DEXTROSE 5% WATER 250ML IV SCH (20:58)
[2021-09-30] VITALS: BP 132/82
[2021-09-30] MEDS: ACETAMINOPHEN 325MG TABLET PO PRN ×2 (00:04→08:57)
[2021-09-30] MEDS: PIPERACILLIN/TAZOBACTAM 3.375 G in DEXTROSE 5% WATER 50 ML IV SCH ×4 (00:04→22:17)
[2021-09-30] MEDS: ACETYLCYSTEINE 100MG/ML 10% VIAL 4ML INH SCH ×3 (01:06→12:58)
[2021-09-30] MEDS: IPRATROPIUM BROMIDE (0.02%) 0.5MG/2.5ML NEB HHN SCH ×4 (01:06→21:07)
[2021-09-30 04:00] VITALS: BP 135/78
[2021-09-30 06:41] LABS: BASOPHILS % 0.8 % (0.0-2.0); EOSINOPHILS % 0.8 % (0.0-5.0); HEMATOCRIT. 38.7 % (42.0-52.0); HEMOGLOBIN. 13.2 g/dL (14.0-18.0); LYMPHOCYTES % 18.8 % (20.0-50.0); MEAN CORPUSCULAR HEMOGLOBIN 35.8 pg (28.0-32.0); MEAN CORPUSCULAR VOLUME 105.5 fL (80.0-94.0); MEAN PLATELET VOLUME 7.3 fl (7.4-10.4); NEUTROPHILS % 66.6 % (40.0-76.0); PLATELET 421 x1000/uL (130-400); RED BLOOD CELL COUNT 3.67 mill/uL (4.7-6.1); RED CELL DISTRIBUTION WIDTH 13.7 % (11.6-14.6)
[2021-09-30 08:00] VITALS: BP 141/87
[2021-09-30] MEDS: FUROSEMIDE 20MG TABLET PO SCH (08:56)
[2021-09-30] MEDS: METOPROLOL TARTRATE 25MG TABLET PO SCH (08:56)
[2021-09-30] MEDS: CHOLECALCIFEROL (D3) 1000 UNIT TABLET PO SCH (08:56)
[2021-09-30] MEDS: ZINC SULFATE 220 MG ( 50 ) CAPSULE PO SCH (08:56)
[2021-09-30] MEDS: ASPIRIN 325MG TABLET NG SCH (08:56)
[2021-09-30] MEDS: ASCORBIC ACID 500 MG TABLET PO SCH ×2 (08:56→21:33)
[2021-09-30] MEDS: FAMOTIDINE 20MG TABLET PO SCH ×2 (08:56→21:33)
[2021-09-30] MEDS: LATUDA 40 MG PO SCH (08:57)
[2021-09-30] MEDS: VALPROATE SODIUM 250MG/5ML UDC PO SCH ×2 (08:57→17:36)
[2021-09-30] MEDS: NYSTATIN POWDER 15GM TOP SCH ×2 (09:00→17:36)
[2021-09-30 12:00] VITALS: BP 123/75
[2021-09-30] MEDS: ENOXAPARIN 30MG/0.3ML SYR SUBCUT SCH ×2 (12:08→21:34)
[2021-09-30] MEDS: VANCOMYCIN 1250MG in DEXTROSE 5% WATER 250ML IV SCH (12:20)
[2021-09-30 16:00] VITALS: BP 131/75
[2021-09-30] MEDS: BENZTROPINE MESYLATE 1MG TABLET PO SCH (17:35)
[2021-09-30 20:00] VITALS: BP 126/78
[2021-09-30] MEDS: LORAZEPAM 2MG/ML CPJ IV PRN (22:21)
[2021-10-01] VITALS: BP 108/73
[2021-10-01] MEDS: IPRATROPIUM BROMIDE (0.02%) 0.5MG/2.5ML NEB HHN SCH ×4 (00:49→20:55)
[2021-10-01] MEDS: ACETYLCYSTEINE 100MG/ML 10% VIAL 4ML INH SCH ×4 (00:50→15:02)
[2021-10-01 04:00] VITALS: BP 126/85
[2021-10-01] MEDS: ACETAMINOPHEN 325MG TABLET PO PRN ×3 (04:29→15:06)
[2021-10-01] MEDS: VANCOMYCIN 1250MG in DEXTROSE 5% WATER 250ML IV SCH (04:53)
[2021-10-01] MEDS: PIPERACILLIN/TAZOBACTAM 3.375 G in DEXTROSE 5% WATER 50 ML IV SCH ×3 (06:28→21:27)
[2021-10-01] MEDS: SODIUM CHLORIDE 0.45% 1,000 ML IV SCH ×3 (06:30→23:17)
[2021-10-01 08:00] VITALS: BP 121/72
[2021-10-01] MEDS: CHOLECALCIFEROL (D3) 1000 UNIT TABLET PO SCH (09:00)
[2021-10-01] MEDS: ASPIRIN 325MG TABLET NG SCH (09:01)
[2021-10-01] MEDS: METOPROLOL TARTRATE 25MG TABLET PO SCH (09:01)
[2021-10-01] MEDS: ASCORBIC ACID 500 MG TABLET PO SCH ×2 (09:02→21:23)
[2021-10-01] MEDS: ZINC SULFATE 220 MG ( 50 ) CAPSULE PO SCH (09:02)
[2021-10-01] MEDS: VALPROATE SODIUM 250MG/5ML UDC PO SCH ×2 (09:08→14:24)
[2021-10-01] MEDS: FAMOTIDINE 20MG TABLET PO SCH ×2 (09:08→21:23)
[2021-10-01] MEDS: LATUDA 40 MG PO SCH (09:12)
[2021-10-01] MEDS: NYSTATIN POWDER 15GM TOP SCH ×2 (09:25→14:25)
[2021-10-01 10:24] LABS: BASOPHILS % 0.8 % (0.0-2.0); EOSINOPHILS % 0.3 % (0.0-5.0); HEMATOCRIT. 37.7 % (42.0-52.0); HEMOGLOBIN. 12.4 g/dL (14.0-18.0); LYMPHOCYTES % 14.7 % (20.0-50.0); MEAN CORPUSCULAR VOLUME 106.2 fL (80.0-94.0); MEAN PLATELET VOLUME 7.3 fl (7.4-10.4); NEUTROPHILS % 70.2 % (40.0-76.0); PLATELET 391 x1000/uL (130-400); RED BLOOD CELL COUNT 3.56 mill/uL (4.7-6.1); RED CELL DISTRIBUTION WIDTH 13.9 % (11.6-14.6)
[2021-10-01 10:42] LABS: VANCOMYCIN TROUGH 28.2 ug/mL (5.0-10.0)
[2021-10-01 12:00] VITALS: BP 106/68
[2021-10-01] MEDS ORDERED: LIDOCAINE HCL 1% 10 MG/ML 10ML VIAL ONE ×2 (13:20→14:00)
[2021-10-01] MEDS: BENZTROPINE MESYLATE 1MG TABLET PO SCH (14:24)
[2021-10-01] MEDS: ENOXAPARIN 30MG/0.3ML SYR SUBCUT SCH ×2 (14:25→21:24)
[2021-10-01 16:00] VITALS: BP 100/39
[2021-10-01 20:00] VITALS: BP 107/68
[2021-10-01] MEDS ORDERED: VANCOMYCIN 1 G PREMIX 200 ML IV SCH (23:00)
[2021-10-02] VITALS: BP 133/74
[2021-10-02] MEDS: ACETYLCYSTEINE 100MG/ML 10% VIAL 4ML INH SCH ×3 (02:32→21:39)
[2021-10-02] MEDS: IPRATROPIUM BROMIDE (0.02%) 0.5MG/2.5ML NEB HHN SCH ×4 (02:36→21:39)
[2021-10-02 04:00] VITALS: BP 117/68
[2021-10-02] MEDS: PIPERACILLIN/TAZOBACTAM 3.375 G in DEXTROSE 5% WATER 50 ML IV SCH ×3 (05:20→21:12)
[2021-10-02] MEDS: SODIUM CHLORIDE 0.45% 1,000 ML IV SCH ×3 (05:22→20:20)
[2021-10-02 08:00] VITALS: BP 117/76
[2021-10-02 08:26] LABS: BASOPHILS % 0.6 % (0.0-2.0); EOSINOPHILS % 2.7 % (0.0-5.0); HEMATOCRIT. 34.9 % (42.0-52.0); HEMOGLOBIN. 11.6 g/dL (14.0-18.0); LYMPHOCYTES % 26.9 % (20.0-50.0); MEAN CORPUSCULAR HEMOGLOBIN 35.2 pg (28.0-32.0); MEAN PLATELET VOLUME 7.1 fl (7.4-10.4); MONOCYTES % 10.9 % (2.0-8.0); NEUTROPHILS % 58.9 % (40.0-76.0); PLATELET 313 x1000/uL (130-400); RED BLOOD CELL COUNT 3.29 mill/uL (4.7-6.1); RED CELL DISTRIBUTION WIDTH 13.5 % (11.6-14.6)
[2021-10-02 08:53] LABS: CHLORIDE 112 mEq/L (98-107)
[2021-10-02 09:03] LABS: CREATINE KINASE 270 IU/L (39-308)
[2021-10-02] MEDS: CHOLECALCIFEROL (D3) 1000 UNIT TABLET PO SCH (09:48)
[2021-10-02] MEDS: VALPROATE SODIUM 250MG/5ML UDC PO SCH ×2 (09:48→17:14)
[2021-10-02] MEDS: ASPIRIN 325MG TABLET NG SCH (09:49)
[2021-10-02] MEDS: METOPROLOL TARTRATE 25MG TABLET PO SCH (09:49)
[2021-10-02] MEDS: ZINC SULFATE 220 MG ( 50 ) CAPSULE PO SCH (09:50)
[2021-10-02] MEDS: ASCORBIC ACID 500 MG TABLET PO SCH ×2 (09:50→20:19)
[2021-10-02] MEDS: FAMOTIDINE 20MG TABLET PO SCH ×2 (09:50→20:19)
[2021-10-02] MEDS: ENOXAPARIN 30MG/0.3ML SYR SUBCUT SCH ×2 (09:51→20:19)
[2021-10-02] MEDS: LATUDA 40 MG PO SCH (10:05)
[2021-10-02] MEDS: NYSTATIN POWDER 15GM TOP SCH ×2 (10:15→17:15)
[2021-10-02 12:00] VITALS: BP 104/69
[2021-10-02] MEDS: VANCOMYCIN 750 MG PREMIX 150 ML IV SCH (12:58)
[2021-10-02 16:00] VITALS: BP 109/69
[2021-10-02] MEDS: BENZTROPINE MESYLATE 1MG TABLET PO SCH (17:14)
[2021-10-02] MEDS ORDERED: POTASSIUM CHLORIDE 20MEQ/PACKET PO NR (19:30)
[2021-10-02 20:00] VITALS: BP 125/80
[2021-10-03] VITALS: BP 148/73
[2021-10-03] MEDS: VANCOMYCIN 750 MG PREMIX 150 ML IV SCH ×2 (00:26→11:29)
[2021-10-03 04:00] VITALS: BP 119/80
[2021-10-03] MEDS: IPRATROPIUM BROMIDE (0.02%) 0.5MG/2.5ML NEB HHN SCH ×4 (04:05→20:36)
[2021-10-03] MEDS: PIPERACILLIN/TAZOBACTAM 3.375 G in DEXTROSE 5% WATER 50 ML IV SCH ×3 (06:00→21:28)
[2021-10-03 06:46] LABS: BASOPHILS % 0.9 % (0.0-2.0); EOSINOPHILS % 2.1 % (0.0-5.0); HEMATOCRIT. 34.8 % (42.0-52.0); LYMPHOCYTES % 20.8 % (20.0-50.0); MEAN CORPUSCULAR HEMOGLOBIN 36.6 pg (28.0-32.0); MEAN CORPUSCULAR VOLUME 106.3 fL (80.0-94.0); MEAN PLATELET VOLUME 7.7 fl (7.4-10.4); MONOCYTES % 9.8 % (2.0-8.0); NEUTROPHILS % 66.4 % (40.0-76.0); PLATELET 340 x1000/uL (130-400); RED BLOOD CELL COUNT 3.28 mill/uL (4.7-6.1); RED CELL DISTRIBUTION WIDTH 13.5 % (11.6-14.6)
[2021-10-03 06:57] LABS: CHLORIDE 111 mEq/L (98-107)
[2021-10-03 08:00] VITALS: BP 126/80
[2021-10-03] MEDS: ASCORBIC ACID 500 MG TABLET PO SCH ×2 (09:11→21:28)
[2021-10-03] MEDS: FAMOTIDINE 20MG TABLET PO SCH ×2 (09:11→21:28)
[2021-10-03] MEDS: ASPIRIN 325MG TABLET NG SCH (09:11)
[2021-10-03] MEDS: ENOXAPARIN 30MG/0.3ML SYR SUBCUT SCH ×2 (09:11→21:28)
[2021-10-03] MEDS: VALPROATE SODIUM 250MG/5ML UDC PO SCH ×2 (09:11→16:33)
[2021-10-03] MEDS: ZINC SULFATE 220 MG ( 50 ) CAPSULE PO SCH (09:12)
[2021-10-03] MEDS: NYSTATIN POWDER 15GM TOP SCH ×2 (09:12→16:34)
[2021-10-03] MEDS: METOPROLOL TARTRATE 25MG TABLET PO SCH (09:12)
[2021-10-03] MEDS: LATUDA 40 MG PO SCH (09:12)
[2021-10-03] MEDS: CHOLECALCIFEROL (D3) 1000 UNIT TABLET PO SCH (09:12)
[2021-10-03] MEDS: SODIUM CHLORIDE 0.45% 1,000 ML IV SCH (09:13)
[2021-10-03 12:00] VITALS: BP 116/78
[2021-10-03 16:00] VITALS: BP 116/81
[2021-10-03] MEDS: BENZTROPINE MESYLATE 1MG TABLET PO SCH (16:33)
[2021-10-03 20:00] VITALS: BP 122/77
[2021-10-03] MEDS: ZOLPIDEM TARTRATE 5MG TABLET PO PRN (21:34)
[2021-10-04] VITALS: BP 95/60
[2021-10-04] MEDS: IPRATROPIUM BROMIDE (0.02%) 0.5MG/2.5ML NEB HHN SCH ×4 (03:24→20:37)
[2021-10-04 04:00] VITALS: BP 112/59
[2021-10-04] MEDS: VANCOMYCIN 750 MG PREMIX 150 ML IV SCH ×2 (05:04→23:08)
[2021-10-04] MEDS: PIPERACILLIN/TAZOBACTAM 3.375 G in DEXTROSE 5% WATER 50 ML IV SCH ×2 (05:52→15:26)
[2021-10-04 07:29] LABS: CHLORIDE 112 mEq/L (98-107)
[2021-10-04 07:35] LABS: HEMATOCRIT. 30.7 % (42.0-52.0); HEMOGLOBIN. 10.5 g/dL (14.0-18.0); MEAN CORPUSCULAR HEMOGLOBIN 36.7 pg (28.0-32.0); MEAN CORPUSCULAR VOLUME 106.7 fL (80.0-94.0); MEAN PLATELET VOLUME 7.7 fl (7.4-10.4); PLATELET 271 x1000/uL (130-400); RED BLOOD CELL COUNT 2.87 mill/uL (4.7-6.1); RED CELL DISTRIBUTION WIDTH 13.7 % (11.6-14.6)
[2021-10-04 08:00] VITALS: BP 104/71
[2021-10-04] MEDS: CHOLECALCIFEROL (D3) 1000 UNIT TABLET PO SCH (08:42)
[2021-10-04] MEDS: ASCORBIC ACID 500 MG TABLET PO SCH ×2 (08:42→21:14)
[2021-10-04] MEDS: ASPIRIN 325MG TABLET NG SCH (08:42)
[2021-10-04] MEDS: ENOXAPARIN 30MG/0.3ML SYR SUBCUT SCH ×2 (08:42→21:14)
[2021-10-04] MEDS: ZINC SULFATE 220 MG ( 50 ) CAPSULE PO SCH (08:42)
[2021-10-04] MEDS: FAMOTIDINE 20MG TABLET PO SCH ×2 (08:43→21:14)
[2021-10-04] MEDS: VALPROATE SODIUM 250MG/5ML UDC PO SCH ×2 (08:43→18:07)
[2021-10-04] MEDS: SODIUM CHLORIDE 0.45% 1,000 ML IV SCH (08:45)
[2021-10-04] MEDS: LATUDA 40 MG PO SCH (08:45)
[2021-10-04] MEDS: METOPROLOL TARTRATE 25MG TABLET PO SCH (09:00)
[2021-10-04 12:00] VITALS: BP 104/71
[2021-10-04 14:34] LABS: NUCLEATED RED BLOOD CELLS 1 /100 WBC; PLATELET ESTIMATE NORMAL
[2021-10-04] MEDS: DEXTROSE 5% WATER 1,000 ML IV SCH (15:25)
[2021-10-04] MEDS: NYSTATIN POWDER 15GM TOP SCH ×2 (15:26→18:08)
[2021-10-04 16:00] VITALS: BP 108/78
[2021-10-04] MEDS ORDERED: POTASSIUM CHLORIDE 20MEQ/PACKET PO NR (16:30)
[2021-10-04] MEDS: BENZTROPINE MESYLATE 1MG TABLET PO SCH (18:07)
[2021-10-04 20:00] VITALS: BP 106/61
[2021-10-04] MEDS: ZOLPIDEM TARTRATE 5MG TABLET PO PRN (23:10)
[2021-10-05] VITALS: BP 100/64
[2021-10-05] MEDS: PIPERACILLIN/TAZOBACTAM 3.375 G in DEXTROSE 5% WATER 50 ML IV SCH ×4 (00:59→21:32)
[2021-10-05] MEDS: DEXTROSE 5% WATER 1,000 ML IV SCH ×2 (02:07→21:30)
[2021-10-05] MEDS: IPRATROPIUM BROMIDE (0.02%) 0.5MG/2.5ML NEB HHN SCH ×4 (02:09→22:13)
[2021-10-05 04:00] VITALS: BP 108/68
[2021-10-05 06:25] LABS: BASOPHILS % 0.8 % (0.0-2.0); EOSINOPHILS % 3.5 % (0.0-5.0); HEMATOCRIT. 32.5 % (42.0-52.0); HEMOGLOBIN. 11.2 g/dL (14.0-18.0); LYMPHOCYTES % 29.2 % (20.0-50.0); MEAN CORPUSCULAR HEMOGLOBIN 36.5 pg (28.0-32.0); MEAN CORPUSCULAR VOLUME 105.6 fL (80.0-94.0); MEAN PLATELET VOLUME 7.9 fl (7.4-10.4); MONOCYTES % 8.9 % (2.0-8.0); NEUTROPHILS % 57.6 % (40.0-76.0); PLATELET 271 x1000/uL (130-400); RED BLOOD CELL COUNT 3.08 mill/uL (4.7-6.1); RED CELL DISTRIBUTION WIDTH 13.3 % (11.6-14.6)
[2021-10-05 06:37] LABS: CHLORIDE 110 mEq/L (98-107)
[2021-10-05 08:00] VITALS: BP 112/75
[2021-10-05] MEDS: LATUDA 40 MG PO SCH (09:26)
[2021-10-05] MEDS: VALPROATE SODIUM 250MG/5ML UDC PO SCH ×2 (09:26→17:43)
[2021-10-05] MEDS: ASPIRIN 325MG TABLET NG SCH (09:27)
[2021-10-05] MEDS: CHOLECALCIFEROL (D3) 1000 UNIT TABLET PO SCH (09:27)
[2021-10-05] MEDS: ZINC SULFATE 220 MG ( 50 ) CAPSULE PO SCH (09:27)
[2021-10-05] MEDS: ASCORBIC ACID 500 MG TABLET PO SCH ×2 (09:27→21:30)
[2021-10-05] MEDS: FAMOTIDINE 20MG TABLET PO SCH ×2 (09:27→21:30)
[2021-10-05] MEDS: METOPROLOL TARTRATE 25MG TABLET PO SCH (09:27)
[2021-10-05] MEDS: NYSTATIN POWDER 15GM TOP SCH ×2 (09:28→17:43)
[2021-10-05 12:00] VITALS: BP 99/57
[2021-10-05] MEDS: ENOXAPARIN 30MG/0.3ML SYR SUBCUT SCH ×2 (12:30→21:30)
[2021-10-05] MEDS: ACETAMINOPHEN 325MG TABLET PO PRN (13:02)
[2021-10-05 14:04] LABS: BG BASE EXCESS 1.2 mmol/L (-2.0-2.0); BG CARBOXYHEMOGLOBIN 0.1 % (0.5-1.5); BG DEOXYHEMOGLOBIN 6.4 % (0.0-5.0); BG FRACTION INSPIRED OXYGEN 21; BG METHEMOGLOBIN 0.2 % (0.0-1.5); BG OXYGEN SATURATION 93.6 % (92.0-98.5); BG OXYHEMOGLOBIN 93.3 % (94.0-97.0); BG PCO2 32.3 mmHg (35.0-45.0); BG PH 7.489 (7.350-7.450); BG PO2 63.6 mmHg (75.0-100.0); BG TOTAL HEMOGLOBIN 12.1 g/dL (12.0-18.0); BG VENT MODE ROOM AIR
[2021-10-05 16:00] VITALS: BP 121/71
[2021-10-05 17:16] LABS: BG BASE EXCESS 2.1 mmol/L (-2.0-2.0); BG CARBOXYHEMOGLOBIN 0.3 % (0.5-1.5); BG DEOXYHEMOGLOBIN 3.9 % (0.0-5.0); BG FRACTION INSPIRED OXYGEN 28; BG HCO3 ACT 25.2 mmol/L (22.0-26.0); BG OXYGEN SATURATION 96.1 % (92.0-98.5); BG OXYHEMOGLOBIN 95.8 % (94.0-97.0); BG PCO2 34.1 mmHg (35.0-45.0); BG PH 7.486 (7.350-7.450); BG PO2 79.1 mmHg (75.0-100.0); BG SAMPLE SITE RIGHT RADIAL; BG TOTAL HEMOGLOBIN 11.9 g/dL (12.0-18.0); BG VENT MODE NASAL CANNULA
[2021-10-05] MEDS: BENZTROPINE MESYLATE 1MG TABLET PO SCH (17:43)
[2021-10-05] MEDS: VANCOMYCIN 750 MG PREMIX 150 ML IV SCH (18:27)
[2021-10-05 20:00] VITALS: BP 110/66
[2021-10-06] VITALS: BP 114/72
[2021-10-06] MEDS: IPRATROPIUM BROMIDE (0.02%) 0.5MG/2.5ML NEB HHN SCH ×4 (02:53→21:43)
[2021-10-06 04:00] VITALS: BP 146/80
[2021-10-06] MEDS: PIPERACILLIN/TAZOBACTAM 3.375 G in DEXTROSE 5% WATER 50 ML IV SCH ×3 (05:16→21:38)
[2021-10-06 06:28] LABS: HEMATOCRIT. 31.6 % (42.0-52.0); LYMPHOCYTES % 29.3 % (20.0-50.0); MEAN CORPUSCULAR HEMOGLOBIN 36.7 pg (28.0-32.0); MEAN CORPUSCULAR VOLUME 105.2 fL (80.0-94.0); MEAN PLATELET VOLUME 7.9 fl (7.4-10.4); NEUTROPHILS % 55.7 % (40.0-76.0); PLATELET 213 x1000/uL (130-400); RED CELL DISTRIBUTION WIDTH 13.9 % (11.6-14.6)
[2021-10-06 06:30] LABS: CHLORIDE 107 mEq/L (98-107)
[2021-10-06 08:00] VITALS: BP 147/75
[2021-10-06] MEDS: ENOXAPARIN 30MG/0.3ML SYR SUBCUT SCH ×2 (09:00→21:00)
[2021-10-06] MEDS: ASPIRIN 325MG TABLET NG SCH (09:00)
[2021-10-06] MEDS: VALPROATE SODIUM 250MG/5ML UDC PO SCH ×2 (10:27→18:14)
[2021-10-06] MEDS: CHOLECALCIFEROL (D3) 1000 UNIT TABLET PO SCH (10:28)
[2021-10-06] MEDS: METOPROLOL TARTRATE 25MG TABLET PO SCH (10:29)
[2021-10-06] MEDS: FAMOTIDINE 20MG TABLET PO SCH ×2 (10:29→21:33)
[2021-10-06] MEDS: ASCORBIC ACID 500 MG TABLET PO SCH ×2 (10:29→21:33)
[2021-10-06] MEDS: ZINC SULFATE 220 MG ( 50 ) CAPSULE PO SCH (10:29)
[2021-10-06] MEDS: NYSTATIN POWDER 15GM TOP SCH ×2 (10:30→18:14)
[2021-10-06] MEDS: LATUDA 40 MG PO SCH (10:30)
[2021-10-06] MEDS: DEXTROSE 5% WATER 1,000 ML IV SCH (11:45)
[2021-10-06 12:00] VITALS: BP 144/76
[2021-10-06] MEDS: VANCOMYCIN 750 MG PREMIX 150 ML IV SCH (13:04)
[2021-10-06 16:00] VITALS: BP 136/82
[2021-10-06] MEDS: BENZTROPINE MESYLATE 1MG TABLET PO SCH (18:13)
[2021-10-06 20:00] VITALS: BP 115/64
[2021-10-06] MEDS: GUAIFENESIN 200MG/10ML SUGAR FREE UDC PO PRN (21:33)
[2021-10-06] MEDS: PANTOPRAZOLE SODIUM 40 MG/VIAL IV SCH (21:33)
[2021-10-06] MEDS: ZOLPIDEM TARTRATE 5MG TABLET PO PRN (23:49)
[2021-10-07] VITALS: BP 114/71
[2021-10-07] MEDS: IPRATROPIUM BROMIDE (0.02%) 0.5MG/2.5ML NEB HHN SCH ×4 (01:16→21:21)
[2021-10-07 04:00] VITALS: BP 110/69
[2021-10-07] MEDS: DEXTROSE 5% WATER 1,000 ML IV SCH (06:27)
[2021-10-07 07:12] LABS: CHLORIDE 105 mEq/L (98-107)
[2021-10-07 07:28] LABS: BASOPHILS % 0.7 % (0.0-2.0); EOSINOPHILS % 3.9 % (0.0-5.0); HEMATOCRIT. 32.7 % (42.0-52.0); HEMOGLOBIN. 11.3 g/dL (14.0-18.0); LYMPHOCYTES % 36.6 % (20.0-50.0); MEAN CORPUSCULAR HEMOGLOBIN 36.1 pg (28.0-32.0); MEAN CORPUSCULAR VOLUME 104.4 fL (80.0-94.0); MEAN PLATELET VOLUME 7.6 fl (7.4-10.4); MONOCYTES % 10.1 % (2.0-8.0); NEUTROPHILS % 48.7 % (40.0-76.0); PLATELET 191 x1000/uL (130-400); RED BLOOD CELL COUNT 3.13 mill/uL (4.7-6.1); RED CELL DISTRIBUTION WIDTH 14.7 % (11.6-14.6)
[2021-10-07 07:31] LABS: INR 1.1; PROTHROMBIN TIME 11.4 sec (9.6-11.0)
[2021-10-07 08:00] VITALS: BP 139/81
[2021-10-07] MEDS: CHOLECALCIFEROL (D3) 1000 UNIT TABLET PO SCH (08:41)
[2021-10-07] MEDS: ASPIRIN 325MG TABLET NG SCH (08:41)
[2021-10-07] MEDS: FAMOTIDINE 20MG TABLET PO SCH ×2 (08:41→22:06)
[2021-10-07] MEDS: ASCORBIC ACID 500 MG TABLET PO SCH ×2 (08:41→22:06)
[2021-10-07] MEDS: ZINC SULFATE 220 MG ( 50 ) CAPSULE PO SCH (08:41)
[2021-10-07] MEDS: VALPROATE SODIUM 250MG/5ML UDC PO SCH ×2 (08:41→17:47)
[2021-10-07] MEDS: METOPROLOL TARTRATE 25MG TABLET PO SCH (08:41)
[2021-10-07] MEDS: ENOXAPARIN 30MG/0.3ML SYR SUBCUT SCH ×2 (08:44→22:06)
[2021-10-07] MEDS: PANTOPRAZOLE SODIUM 40 MG/VIAL IV SCH ×2 (09:00→22:05)
[2021-10-07] MEDS: LATUDA 40 MG PO SCH (09:00)
[2021-10-07] MEDS: NYSTATIN POWDER 15GM TOP SCH ×2 (09:28→17:47)
[2021-10-07] MEDS ORDERED: CEFAZOLIN 1000MG PREMIX 50 ML IV NR (10:00)
[2021-10-07] MEDS ORDERED: FENTANYL CITRATE/PF 50MCG/ML 2ML VIAL IV PRN (11:58)
[2021-10-07] MEDS ORDERED: MIDAZOLAM HCL 2 MG/2 ML VIAL IV PRN (11:59)
[2021-10-07] MEDS ORDERED: MIDAZOLAM HCL 5 MG/5 ML VIAL ONE (11:59)
[2021-10-07] MEDS ORDERED: FENTANYL CITRATE/PF 50MCG/ML 2ML VIAL ONE (12:00)
[2021-10-07] MEDS: ACETAMINOPHEN 325MG TABLET PO PRN (14:17)
[2021-10-07 16:00] VITALS: BP 106/71
[2021-10-07] MEDS: BENZTROPINE MESYLATE 1MG TABLET PO SCH (17:47)
[2021-10-07 20:00] VITALS: BP 128/85
[2021-10-08 00:12] VITALS: BP 125/73
[2021-10-08] MEDS: ZOLPIDEM TARTRATE 5MG TABLET PO PRN (01:33)
[2021-10-08] MEDS: IPRATROPIUM BROMIDE (0.02%) 0.5MG/2.5ML NEB HHN SCH ×4 (02:20→20:05)
[2021-10-08 08:00] VITALS: BP 112/62
[2021-10-08 08:36] LABS: HEMATOCRIT. 32.4 % (42.0-52.0); MEAN CORPUSCULAR VOLUME 106.1 fL (80.0-94.0); MEAN PLATELET VOLUME 7.8 fl (7.4-10.4); PLATELET 167 x1000/uL (130-400); RED BLOOD CELL COUNT 3.05 mill/uL (4.7-6.1); RED CELL DISTRIBUTION WIDTH 14.7 % (11.6-14.6)
[2021-10-08 08:38] LABS: CHLORIDE 107 mEq/L (98-107)
[2021-10-08 08:46] LABS: CREATINE KINASE 161 IU/L (39-308)
[2021-10-08] MEDS: VALPROATE SODIUM 250MG/5ML UDC PO SCH ×2 (08:59→16:21)
[2021-10-08] MEDS: ENOXAPARIN 30MG/0.3ML SYR SUBCUT SCH ×2 (08:59→22:07)
[2021-10-08] MEDS: PANTOPRAZOLE SODIUM 40 MG/VIAL IV SCH ×2 (08:59→22:06)
[2021-10-08] MEDS: CHOLECALCIFEROL (D3) 1000 UNIT TABLET PO SCH (09:00)
[2021-10-08] MEDS: NYSTATIN POWDER 15GM TOP SCH ×2 (09:00→16:21)
[2021-10-08] MEDS: ASPIRIN 325MG TABLET NG SCH (09:00)
[2021-10-08] MEDS: ZINC SULFATE 220 MG ( 50 ) CAPSULE PO SCH (09:01)
[2021-10-08] MEDS: METOPROLOL TARTRATE 25MG TABLET PO SCH (09:01)
[2021-10-08] MEDS: FAMOTIDINE 20MG TABLET PO SCH ×2 (09:01→22:07)
[2021-10-08] MEDS: LATUDA 40 MG PO SCH (09:03)
[2021-10-08] MEDS: ASCORBIC ACID 500 MG TABLET PO SCH ×2 (09:17→22:07)
[2021-10-08 12:00] VITALS: BP 126/75
[2021-10-08 12:15] LABS: PLATELET ESTIMATE NORMAL
[2021-10-08 16:00] VITALS: BP 131/85
[2021-10-08] MEDS: BENZTROPINE MESYLATE 1MG TABLET PO SCH (16:21)
[2021-10-08 20:00] VITALS: BP 101/72
[2021-10-08] MEDS: ACETAMINOPHEN 325MG TABLET PO PRN (22:07)
[2021-10-09] VITALS: BP 152/70
[2021-10-09] MEDS: IPRATROPIUM BROMIDE (0.02%) 0.5MG/2.5ML NEB HHN SCH ×3 (02:07→20:25)
[2021-10-09 04:00] VITALS: BP 118/69
[2021-10-09 08:00] VITALS: BP 137/74
[2021-10-09] MEDS: LATUDA 40 MG PO SCH (09:00)
[2021-10-09] MEDS: ENOXAPARIN 30MG/0.3ML SYR SUBCUT SCH ×2 (10:13→20:54)
[2021-10-09] MEDS: FAMOTIDINE 20MG TABLET PO SCH ×2 (10:14→20:53)
[2021-10-09] MEDS: VALPROATE SODIUM 250MG/5ML UDC PO SCH ×2 (10:14→17:31)
[2021-10-09] MEDS: ZINC SULFATE 220 MG ( 50 ) CAPSULE PO SCH (10:14)
[2021-10-09] MEDS: CHOLECALCIFEROL (D3) 1000 UNIT TABLET PO SCH (10:14)
[2021-10-09] MEDS: METOPROLOL TARTRATE 25MG TABLET PO SCH (10:15)
[2021-10-09] MEDS: ASPIRIN 325MG TABLET NG SCH (10:15)
[2021-10-09] MEDS: NYSTATIN POWDER 15GM TOP SCH ×2 (10:16→17:32)
[2021-10-09] MEDS: ASCORBIC ACID 500 MG TABLET PO SCH ×2 (10:17→20:53)
[2021-10-09 12:00] VITALS: BP 129/77
[2021-10-09] MEDS: PANTOPRAZOLE SODIUM 40 MG/VIAL IV SCH ×2 (13:25→20:54)
[2021-10-09 16:00] VITALS: BP 147/81
[2021-10-09] MEDS: BENZTROPINE MESYLATE 1MG TABLET PO SCH (17:31)
[2021-10-09] MEDS: ACETAMINOPHEN 325MG TABLET PO PRN (18:22)
[2021-10-09 20:00] VITALS: BP 120/69
[2021-10-09] MEDS: ZOLPIDEM TARTRATE 5MG TABLET PO PRN (22:04)
[2021-10-09] MEDS: DEXTROSE 5% WATER 1,000 ML IV SCH (22:43)
[2021-10-10] VITALS: BP 114/57
[2021-10-10] MEDS: IPRATROPIUM BROMIDE (0.02%) 0.5MG/2.5ML NEB HHN SCH ×4 (01:07→21:15)
[2021-10-10 04:00] VITALS: BP 105/57
[2021-10-10 08:00] VITALS: BP_SYST 136; BP_SYST 194; BP_DIAS 103; BP_DIAS 86
[2021-10-10] MEDS: LATUDA 40 MG PO SCH (09:00)
[2021-10-10] MEDS: PANTOPRAZOLE SODIUM 40 MG/VIAL IV SCH ×2 (09:00→23:31)
[2021-10-10] MEDS: VALPROATE SODIUM 250MG/5ML UDC PO SCH ×2 (10:23→16:25)
[2021-10-10] MEDS: ENOXAPARIN 30MG/0.3ML SYR SUBCUT SCH ×2 (10:23→23:31)
[2021-10-10] MEDS: ZINC SULFATE 220 MG ( 50 ) CAPSULE PO SCH (10:24)
[2021-10-10] MEDS: FAMOTIDINE 20MG TABLET PO SCH ×2 (10:24→23:32)
[2021-10-10] MEDS: ASPIRIN 325MG TABLET NG SCH (10:24)
[2021-10-10] MEDS: ASCORBIC ACID 500 MG TABLET PO SCH ×2 (10:24→23:31)
[2021-10-10] MEDS: CHOLECALCIFEROL (D3) 1000 UNIT TABLET PO SCH (10:25)
[2021-10-10] MEDS: METOPROLOL TARTRATE 25MG TABLET PO SCH (10:25)
[2021-10-10] MEDS: NYSTATIN POWDER 15GM TOP SCH ×2 (10:27→17:42)
[2021-10-10] MEDS: ACETAMINOPHEN 325MG TABLET PO PRN (11:13)
[2021-10-10 12:00] VITALS: BP 135/83
[2021-10-10 16:00] VITALS: BP 103/69
[2021-10-10] MEDS: DEXTROSE 5% WATER 1,000 ML IV SCH (16:24)
[2021-10-10] MEDS: BENZTROPINE MESYLATE 1MG TABLET PO SCH (16:25)
[2021-10-10 20:00] VITALS: BP 141/45
[2021-10-10] MEDS: ZOLPIDEM TARTRATE 5MG TABLET PO PRN (23:32)
[2021-10-11] VITALS: BP 114/63
[2021-10-11] MEDS: IPRATROPIUM BROMIDE (0.02%) 0.5MG/2.5ML NEB HHN SCH ×4 (00:52→21:40)
[2021-10-11 04:00] VITALS: BP 123/87
[2021-10-11 08:00] VITALS: BP 132/77
[2021-10-11] MEDS: PANTOPRAZOLE SODIUM 40 MG/VIAL IV SCH ×2 (09:17→21:14)
[2021-10-11] MEDS: ENOXAPARIN 30MG/0.3ML SYR SUBCUT SCH ×2 (09:17→21:14)
[2021-10-11] MEDS: VALPROATE SODIUM 250MG/5ML UDC PO SCH ×2 (09:18→16:18)
[2021-10-11] MEDS: CHOLECALCIFEROL (D3) 1000 UNIT TABLET PO SCH (09:19)
[2021-10-11] MEDS: ZINC SULFATE 220 MG ( 50 ) CAPSULE PO SCH (09:19)
[2021-10-11] MEDS: ASCORBIC ACID 500 MG TABLET PO SCH ×2 (09:19→21:14)
[2021-10-11] MEDS: FAMOTIDINE 20MG TABLET PO SCH ×2 (09:19→21:14)
[2021-10-11] MEDS: ASPIRIN 325MG TABLET NG SCH (09:19)
[2021-10-11] MEDS: NYSTATIN POWDER 15GM TOP SCH ×2 (09:19→16:19)
[2021-10-11] MEDS: METOPROLOL TARTRATE 25MG TABLET PO SCH (09:22)
[2021-10-11 12:00] VITALS: BP 141/91
[2021-10-11] MEDS: LATUDA 80MG TABLET PO SCH (12:05)
[2021-10-11] MEDS: ACETAMINOPHEN 325MG TABLET PO PRN (13:23)
[2021-10-11 16:00] VITALS: BP 142/85
[2021-10-11] MEDS: BENZTROPINE MESYLATE 1MG TABLET PO SCH (16:18)
[2021-10-11 16:58] LABS: BASOPHILS % 0.9 % (0.0-2.0); CHLORIDE 108 mEq/L (98-107); EOSINOPHILS % 2.4 % (0.0-5.0); HEMATOCRIT. 34.5 % (42.0-52.0); HEMOGLOBIN. 11.4 g/dL (14.0-18.0); LYMPHOCYTES % 46.8 % (20.0-50.0); MEAN CORPUSCULAR HEMOGLOBIN 34.9 pg (28.0-32.0); MEAN CORPUSCULAR VOLUME 105.6 fL (80.0-94.0); MONOCYTES % 13.5 % (2.0-8.0); NEUTROPHILS % 36.4 % (40.0-76.0); PLATELET 166 x1000/uL (130-400); RED BLOOD CELL COUNT 3.27 mill/uL (4.7-6.1); RED CELL DISTRIBUTION WIDTH 15.5 % (11.6-14.6)
[2021-10-11 20:00] VITALS: BP 117/60
[2021-10-12] VITALS: BP 104/70
[2021-10-12] MEDS: ZOLPIDEM TARTRATE 5MG TABLET PO PRN ×2 (00:14→23:07)
[2021-10-12] MEDS: IPRATROPIUM BROMIDE (0.02%) 0.5MG/2.5ML NEB HHN SCH ×4 (02:43→21:15)
[2021-10-12 04:00] VITALS: BP 116/80
[2021-10-12 08:00] VITALS: BP 140/80
[2021-10-12] MEDS: VALPROATE SODIUM 250MG/5ML UDC PO SCH ×2 (08:37→18:47)
[2021-10-12] MEDS: ASCORBIC ACID 500 MG TABLET PO SCH ×2 (08:37→23:07)
[2021-10-12] MEDS: METOPROLOL TARTRATE 25MG TABLET PO SCH (08:37)
[2021-10-12] MEDS: PANTOPRAZOLE SODIUM 40 MG/VIAL IV SCH ×2 (08:37→23:07)
[2021-10-12] MEDS: LATUDA 80MG TABLET PO SCH (08:37)
[2021-10-12] MEDS: ASPIRIN 325MG TABLET NG SCH (08:38)
[2021-10-12] MEDS: ZINC SULFATE 220 MG ( 50 ) CAPSULE PO SCH (08:38)
[2021-10-12] MEDS: FAMOTIDINE 20MG TABLET PO SCH ×2 (08:38→23:07)
[2021-10-12] MEDS: CHOLECALCIFEROL (D3) 1000 UNIT TABLET PO SCH (08:38)
[2021-10-12] MEDS: ENOXAPARIN 30MG/0.3ML SYR SUBCUT SCH ×2 (08:38→23:06)
[2021-10-12] MEDS: NYSTATIN POWDER 15GM TOP SCH ×2 (08:39→18:46)
[2021-10-12 12:00] VITALS: BP 135/82
[2021-10-12 16:00] VITALS: BP 138/75
[2021-10-12] MEDS: BENZTROPINE MESYLATE 1MG TABLET PO SCH (18:46)
[2021-10-12 20:00] VITALS: BP 136/71
[2021-10-13] VITALS: BP 91/63
[2021-10-13] MEDS: IPRATROPIUM BROMIDE (0.02%) 0.5MG/2.5ML NEB HHN SCH ×4 (02:38→21:12)
[2021-10-13 04:00] VITALS: BP 127/80
[2021-10-13 08:00] VITALS: BP 123/72
[2021-10-13] MEDS: ENOXAPARIN 30MG/0.3ML SYR SUBCUT SCH ×2 (09:00→20:17)
[2021-10-13] MEDS: CHOLECALCIFEROL (D3) 1000 UNIT TABLET PO SCH (09:16)
[2021-10-13] MEDS: ASPIRIN 325MG TABLET NG SCH (09:16)
[2021-10-13] MEDS: PANTOPRAZOLE SODIUM 40 MG/VIAL IV SCH ×2 (09:16→20:17)
[2021-10-13] MEDS: ASCORBIC ACID 500 MG TABLET PO SCH ×2 (09:17→20:17)
[2021-10-13] MEDS: FAMOTIDINE 20MG TABLET PO SCH ×2 (09:17→20:17)
[2021-10-13] MEDS: ZINC SULFATE 220 MG ( 50 ) CAPSULE PO SCH (09:17)
[2021-10-13] MEDS: METOPROLOL TARTRATE 25MG TABLET PO SCH (09:19)
[2021-10-13] MEDS: LATUDA 80MG TABLET PO SCH (09:19)
[2021-10-13] MEDS: NYSTATIN POWDER 15GM TOP SCH (09:23)
[2021-10-13 12:00] VITALS: BP 132/81
[2021-10-13 16:00] VITALS: BP 133/74
[2021-10-13] MEDS: BENZTROPINE MESYLATE 1MG TABLET PO SCH (17:35)
[2021-10-13] MEDS: VALPROATE SODIUM 250MG/5ML UDC PO SCH (17:36)
[2021-10-13 20:00] VITALS: BP 154/86
[2021-10-14] VITALS: BP 119/83
[2021-10-14] MEDS: ZOLPIDEM TARTRATE 5MG TABLET PO PRN (01:48)
[2021-10-14] MEDS: IPRATROPIUM BROMIDE (0.02%) 0.5MG/2.5ML NEB HHN SCH ×4 (01:52→18:00)
[2021-10-14 04:00] VITALS: BP 132/78
[2021-10-14 08:00] VITALS: BP 134/98
[2021-10-14] MEDS: LATUDA 80MG TABLET PO SCH (10:19)
[2021-10-14] MEDS: VALPROATE SODIUM 250MG/5ML UDC PO SCH ×2 (10:19→17:40)
[2021-10-14] MEDS: NYSTATIN POWDER 15GM TOP SCH ×3 (10:20→17:42)
[2021-10-14] MEDS: CHOLECALCIFEROL (D3) 1000 UNIT TABLET PO SCH (10:21)
[2021-10-14] MEDS: ENOXAPARIN 30MG/0.3ML SYR SUBCUT SCH ×2 (10:21→20:37)
[2021-10-14] MEDS: ASCORBIC ACID 500 MG TABLET PO SCH ×2 (10:22→20:37)
[2021-10-14] MEDS: ZINC SULFATE 220 MG ( 50 ) CAPSULE PO SCH (10:22)
[2021-10-14] MEDS: FAMOTIDINE 20MG TABLET PO SCH ×2 (10:22→20:37)
[2021-10-14] MEDS: ASPIRIN 325MG TABLET NG SCH (10:22)
[2021-10-14] MEDS: PANTOPRAZOLE SODIUM 40 MG/VIAL IV SCH ×2 (10:22→20:37)
[2021-10-14] MEDS: METOPROLOL TARTRATE 25MG TABLET PO SCH (10:24)
[2021-10-14 12:00] VITALS: BP 138/86
[2021-10-14 16:00] VITALS: BP 152/90
[2021-10-14] MEDS: BENZTROPINE MESYLATE 1MG TABLET PO SCH (17:40)
[2021-10-14 20:00] VITALS: BP 128/89
[2021-10-15] VITALS (7 sets, daily range): BP systolic 109–137; BP diastolic 69–92
[2021-10-15] MEDS ORDERED: ZOLPIDEM TARTRATE 5MG TABLET PO PRN (00:15)
[2021-10-15] MEDS: IPRATROPIUM BROMIDE (0.02%) 0.5MG/2.5ML NEB HHN SCH ×3 (02:34→14:28)
[2021-10-15] MEDS: PANTOPRAZOLE SODIUM 40 MG/VIAL IV SCH ×2 (09:30→20:43)
[2021-10-15] MEDS: VALPROATE SODIUM 250MG/5ML UDC PO SCH ×2 (09:30→17:18)
[2021-10-15] MEDS: ENOXAPARIN 30MG/0.3ML SYR SUBCUT SCH ×2 (09:31→20:43)
[2021-10-15] MEDS: METOPROLOL TARTRATE 25MG TABLET PO SCH (09:31)
[2021-10-15] MEDS: ASCORBIC ACID 500 MG TABLET PO SCH ×2 (09:31→20:43)
[2021-10-15] MEDS: ZINC SULFATE 220 MG ( 50 ) CAPSULE PO SCH (09:31)
[2021-10-15] MEDS: LATUDA 80MG TABLET PO SCH (09:32)
[2021-10-15] MEDS: CHOLECALCIFEROL (D3) 1000 UNIT TABLET PO SCH (09:32)
[2021-10-15] MEDS: FAMOTIDINE 20MG TABLET PO SCH ×2 (09:32→20:43)
[2021-10-15] MEDS: NYSTATIN POWDER 15GM TOP SCH ×2 (09:33→17:19)
[2021-10-15] MEDS: ASPIRIN 325MG TABLET NG SCH (09:33)
[2021-10-15] MEDS: BENZTROPINE MESYLATE 1MG TABLET PO SCH (17:19)
== END 2021-10-15 21:58 | disposition home health service (06) | DRG 871 ==
LOC: ER 18:51 → 6EST 09-18 04:12 → SUPCPDRO 09-18 07:11 → ENRESERV 09-18 07:35 → 7EST 09-18 15:00
PROVIDERS: ADMIT Internal Medicine Nephrology; ATTEND Internal Medicine Nephrology
PROC: 0S9F3ZZ Drainage of Right Ankle Joint, Percutaneous Approach (ICD-10-PCS; 2021-09-18)
PROC: 2W3QX1Z Immobilization of Right Lower Leg using Splint (ICD-10-PCS; 2021-09-18)
PROC: 02HV33Z Insertion of Infusion Device into Superior Vena Cava, Percutaneous Approach (ICD-10-PCS; principal; 2021-10-01)
PROC: B548ZZA Ultrasonography of Superior Vena Cava, Guidance (ICD-10-PCS; 2021-10-01)
PROC: 2W3QX2Z Immobilization of Right Lower Leg using Cast (ICD-10-PCS; 2021-10-06)
PROC: 0DH63UZ Insertion of Feeding Device into Stomach, Percutaneous Approach (ICD-10-PCS; 2021-10-07)
DX: A41.9 Sepsis, unspecified organism (principal); G92.8 Other toxic encephalopathy; J96.01 Acute respiratory failure with hypoxia; E43 Unspecified severe protein-calorie malnutrition; I50.33 Acute on chronic diastolic (congestive) heart failure; J69.0 Pneumonitis due to inhalation of food and vomit; E87.0 Hyperosmolality and hypernatremia; M62.82 Rhabdomyolysis; L03.115 Cellulitis of right lower limb; N17.9 Acute kidney failure, unspecified; N39.0 Urinary tract infection, site not specified; G40.89 Other seizures; I82.612 Acute embolism and thrombosis of superficial veins of left upper extremity; F79 Unspecified intellectual disabilities; D53.9 Nutritional anemia, unspecified; F41.9 Anxiety disorder, unspecified; G47.00 Insomnia, unspecified; R13.12 Dysphagia, oropharyngeal phase; S82.831A Other fracture of upper and lower end of right fibula, initial encounter for closed fracture; D69.6 Thrombocytopenia, unspecified; R62.50 Unspecified lack of expected normal physiological development in childhood; Z20.822 Contact with and (suspected) exposure to COVID-19; W18.39XA Other fall on same level, initial encounter; E66.9 Obesity, unspecified; I11.0 Hypertensive heart disease with heart failure; I80.8 Phlebitis and thrombophlebitis of other sites; Z79.899 Other long term (current) drug therapy; Z91.19 Patient's noncompliance with other medical treatment and regimen; Q90.9 Down syndrome, unspecified; Z78.1 Physical restraint status; Y93.89 Activity, other specified; Y92.89 Other specified places as the place of occurrence of the external cause; Y99.8 Other external cause status; Z68.32 Body mass index [BMI] 32.0-32.9, adult
CPT/HCPCS: 36415; 36600; 71045; 71275; 73552; 73560; 73590; 73600; 73620; 76705; 76937; 80048; 80053; 80061; 80076; 80165; 80202; 81003; 82375; 82550; 82553; 82607; 82746; 82805; 82962; 83036; 83540; 83550; 83605; 83735; 84100; 84145; 84439; 84443; 84484; 85025; 87426; 90686; 92610; 93005; 93306; 93970; 93971; 94640; 97110; 97166; 97530; 99291; A4565; C1725; C1893; C9113; J0690; J0692; J0696; J1630; J1650; J1885; J1940; J1956; J2060; J2250; J2543; J3010; J3370; J3490; J7040; J7060; J7070; J7608; Q9967

== ENCOUNTER 2021-10-26 09:11 | Inpatient (IN) | payer MEDICARE, MEDICAID, OTHER ==
[~2021-10-26] VITALS: Ht 170.2 cm; Wt 108.9 kg
[2021-10-26] MEDS: DIVALPROEX SODIUM 500MG DR TABLET PO SCH (00:30)
[2021-10-26] MEDS: SODIUM CHLORIDE 0.45% 1,000 ML IV SCH ×2 (04:25→12:00)
[~2021-10-26 09:11] MED LIST changes: -BENZ1TAB7 PO; -DIVA-18 PO; -LOSA25TA26 PO; +LURA80TA MT; -PHEN100O2 PO; -PHEN32.46 PO; -RISP2TAB85 PO; -SERT100T PO
[2021-10-26] MEDS ORDERED: PIPERACILLIN/TAZ 3.375G PREMIX 50 ML IV ONE (09:15)
[2021-10-26] MEDS ORDERED: VANCOMYCIN 1G PREMIX 200 ML IV ONE (09:15)
[2021-10-26] MEDS ORDERED: ACETAMINOPHEN 650MG SUPP PR STA (09:20)
[2021-10-26 11:38] LABS: BASOPHILS % 0.8 % (0.0-2.0); EOSINOPHILS % 0.1 % (0.0-5.0); HEMATOCRIT. 47.4 % (42.0-52.0); HEMOGLOBIN. 14.9 g/dL (14.0-18.0); LYMPHOCYTES % 24.3 % (20.0-50.0); MEAN CORPUSCULAR HEMOGLOBIN 36.5 pg (28.0-32.0); MEAN CORPUSCULAR VOLUME 115.9 fL (80.0-94.0); MEAN PLATELET VOLUME 12.9 fl (7.4-10.4); MONOCYTES % 5.4 % (2.0-8.0); NEUTROPHILS % 69.4 % (40.0-76.0); PLATELET 135 x1000/uL (130-400); RED BLOOD CELL COUNT 4.09 mill/uL (4.7-6.1); RED CELL DISTRIBUTION WIDTH 16.6 % (11.6-14.6)
[2021-10-26 11:39] LABS: CHLORIDE 130 mEq/L (98-107)
[2021-10-26] MEDS ORDERED: ENOXAPARIN 40MG/0.4ML SYR SUBCUT SCH (12:00)
[2021-10-26] MEDS ORDERED: SODIUM CHLORIDE 0.9% 1000ML BAG (SEPSIS BOLUS) IV ONE (12:00)
[2021-10-26] MEDS ORDERED: CLONIDINE 0.1MG TABLET PO PRN (12:00)
[2021-10-26] MEDS ORDERED: DOCUSATE SODIUM 100MG CAPSULE PO PRN (12:00)
[2021-10-26 12:39] LABS: PLATELET ESTIMATE NORMAL
[2021-10-26] MEDS: ENOXAPARIN 30MG/0.3ML SYR SUBCUT SCH (13:19)
[2021-10-26 13:37] LABS: CREATINE KINASE 1947 IU/L (39-308)
[2021-10-26] MEDS ORDERED: LIDOCAINE HCL 1% 20ML VIAL (Pyxis) INJ ONE (13:40)
[2021-10-26 14:49] LABS: BG CARBOXYHEMOGLOBIN 0.1 % (0.5-1.5); BG FRACTION INSPIRED OXYGEN 32; BG HCO3 ACT 20.7 mmol/L (22.0-26.0); BG METHEMOGLOBIN 0.3 % (0.0-1.5); BG OXYHEMOGLOBIN 94.6 % (94.0-97.0); BG PCO2 26.6 mmHg (35.0-45.0); BG PH 7.509 (7.350-7.450); BG PO2 71.9 mmHg (75.0-100.0); BG SAMPLE SITE RIGHT BRACHIAL; BG TOTAL HEMOGLOBIN 12.9 g/dL (12.0-18.0); BG VENT MODE NASAL CANNULA
[2021-10-26] MEDS ORDERED: IPRATROPIUM BROMIDE (0.02%) 0.5MG/2.5ML NEB HHN PRN (16:45)
[2021-10-26 18:27] LABS: CLARITY URINE CLOUDY (CLEAR); COLOR URINE DARK YELLOW (YELLOW); KETONES URINE TRACE (NEGATIVE); LEUKOCYTE ESTERASE URINE TRACE (NEGATIVE); NITRITE URINE NEGATIVE (NEGATIVE); OCCULT BLOOD URINE NEGATIVE (NEGATIVE); PROTEIN URINE 2+ (NEGATIVE); SPECIFIC GRAVITY URINE 1.042 (1.005-1.030)
[2021-10-26] MEDS: IPRATROPIUM BROMIDE (0.02%) 0.5MG/2.5ML NEB HHN SCH (20:31)
[2021-10-26] MEDS: ACETAMINOPHEN 650MG/20.3ML UDC GT PRN (22:32)
[2021-10-26] MEDS: PIPERACILLIN/TAZ 3.375G PREMIX 50 ML IV SCH (22:56)
[2021-10-27] MEDS: ACETYLCYSTEINE 100MG/ML 10% VIAL 4ML INH SCH ×2 (00:27→07:30)
[2021-10-27] MEDS: IPRATROPIUM BROMIDE (0.02%) 0.5MG/2.5ML NEB HHN SCH ×4 (00:27→20:54)
[2021-10-27] MEDS: BENZTROPINE MESYLATE 1 MG/ML 2ML VIAL IM SCH ×2 (00:52→21:08)
[2021-10-27] MEDS: DEXTROSE 5% WATER 1,000 ML IV SCH ×3 (02:30→17:00)
[2021-10-27] MEDS: ACETAMINOPHEN 650MG/20.3ML UDC GT PRN ×2 (04:56→10:24)
[2021-10-27 05:22] LABS: BASOPHILS % 0.7 % (0.0-2.0); EOSINOPHILS % 0.1 % (0.0-5.0); HEMATOCRIT. 36.3 % (42.0-52.0); LYMPHOCYTES % 29.3 % (20.0-50.0); MEAN CORPUSCULAR HEMOGLOBIN 37.5 pg (28.0-32.0); MEAN PLATELET VOLUME 13.3 fl (7.4-10.4); MONOCYTES % 5.5 % (2.0-8.0); NEUTROPHILS % 64.4 % (40.0-76.0); PLATELET 76 x1000/uL (130-400); RED BLOOD CELL COUNT 3.19 mill/uL (4.7-6.1); RED CELL DISTRIBUTION WIDTH 15.7 % (11.6-14.6)
[2021-10-27 05:51] LABS: CHLORIDE 131 mEq/L (98-107)
[2021-10-27 06:30] LABS: CREATINE KINASE 1531 IU/L (39-308)
[2021-10-27] MEDS: PIPERACILLIN/TAZ 3.375G PREMIX 50 ML IV SCH (07:45)
[2021-10-27] MEDS: MIDODRINE HCL 5MG TABLET PO SCH ×4 (08:15→18:40)
[2021-10-27] MEDS ORDERED: PHENYLEPHRINE 100 MG in DEXT 5% WATER 240 ML IV PRN (09:15)
[2021-10-27] MEDS: DIVALPROEX SODIUM 500MG DR TABLET PO SCH ×2 (10:23→21:08)
[2021-10-27] MEDS: QUETIAPINE FUMARATE 50MG TABLET PO SCH (10:23)
[2021-10-27] MEDS: PHENYLEPHRINE 100 MG in DEXT 5% WATER 240 ML IV PRN (10:40)
[2021-10-27] MEDS ORDERED: VANCOMYCIN 1G PREMIX 200 ML IV NR (12:00)
[2021-10-27] MEDS ORDERED: DIATR MEGLU/DIATRIZOATE SOLN 30ML PO SCH (12:45)
[2021-10-27] MEDS ORDERED: NOREPINEPHRINE 8MG/250ML PMX 250 ML IV PRN (13:00)
[2021-10-27] MEDS: ENOXAPARIN 30MG/0.3ML SYR SUBCUT SCH (13:00)
[2021-10-27] MEDS: PIPERACILLIN/TAZOBACTAM 3.375G in DEXT 5% WATER 50ML IV SCH ×2 (15:10→21:26)
[2021-10-28] MEDS: ACETYLCYSTEINE 100MG/ML 10% VIAL 4ML INH SCH ×4 (00:49→22:00)
[2021-10-28] MEDS: IPRATROPIUM BROMIDE (0.02%) 0.5MG/2.5ML NEB HHN SCH ×5 (00:49→20:00)
[2021-10-28] MEDS: PIPERACILLIN/TAZOBACTAM 3.375G in DEXT 5% WATER 50ML IV SCH ×3 (06:40→23:18)
[2021-10-28 08:19] LABS: HEMATOCRIT. 39.2 % (42.0-52.0); HEMOGLOBIN. 12.9 g/dL (14.0-18.0); MEAN CORPUSCULAR HEMOGLOBIN 37.9 pg (28.0-32.0); MEAN CORPUSCULAR VOLUME 115.5 fL (80.0-94.0); RED BLOOD CELL COUNT 3.39 mill/uL (4.7-6.1); RED CELL DISTRIBUTION WIDTH 14.8 % (11.6-14.6)
[2021-10-28] MEDS: SODIUM CHLORIDE 0.45% 1,000 ML IV SCH ×3 (08:45→20:40)
[2021-10-28] MEDS ORDERED: SODIUM POLYSTYRENE SULFONATE 15 G/60 ML BOT PO NR (08:45)
[2021-10-28] MEDS: DIVALPROEX SODIUM 500MG DR TABLET PO SCH (09:00)
[2021-10-28] MEDS: MIDODRINE HCL 5MG TABLET PO SCH ×3 (09:00→17:00)
[2021-10-28] MEDS: QUETIAPINE FUMARATE 50MG TABLET PO SCH (09:00)
[2021-10-28 09:49] LABS: PLATELET 86 x1000/uL (130-400)
[2021-10-28 09:56] LABS: NUCLEATED RED BLOOD CELLS 1 /100 WBC; PLATELET ESTIMATE DECREASED
[2021-10-28] MEDS ORDERED: VALPROIC ACID 250MG CAPSULE PO SCH (10:30)
[2021-10-28] MEDS: VALPROATE SODIUM 250MG/5ML UDC GT SCH ×2 (12:18→22:21)
[2021-10-28] MEDS: ACETAMINOPHEN 650MG/20.3ML UDC GT PRN ×2 (12:27→17:16)
[2021-10-28] MEDS: ONDANSETRON HCL 4MG/2ML INJ IV PRN (15:10)
[2021-10-28] MEDS: ENOXAPARIN 30MG/0.3ML SYR SUBCUT SCH (15:10)
[2021-10-28] MEDS ORDERED: VANCOMYCIN 1G PREMIX 200 ML IV SCH (19:30)
[2021-10-28] MEDS: BENZTROPINE MESYLATE 1 MG/ML 2ML VIAL IM SCH (22:21)
[2021-10-28] MEDS: PHENYLEPHRINE 100 MG in DEXT 5% WATER 240 ML IV PRN (23:51)
[2021-10-29] VITALS (25 sets, daily range): BP systolic 63–170; BP diastolic 41–101
[2021-10-29] MEDS: ACETAMINOPHEN 650MG/20.3ML UDC GT PRN (01:40)
[2021-10-29] MEDS: IPRATROPIUM BROMIDE (0.02%) 0.5MG/2.5ML NEB HHN SCH ×5 (04:08→20:19)
[2021-10-29] MEDS: SODIUM CHLORIDE 0.45% 1,000 ML IV SCH (05:15)
[2021-10-29] MEDS: PHENYLEPHRINE 100 MG in DEXT 5% WATER 240 ML IV PRN ×2 (05:16→20:15)
[2021-10-29 05:20] LABS: BASOPHILS % 0.5 % (0.0-2.0); HEMATOCRIT. 32.6 % (42.0-52.0); HEMOGLOBIN. 10.9 g/dL (14.0-18.0); MEAN CORPUSCULAR HEMOGLOBIN 36.5 pg (28.0-32.0); MEAN CORPUSCULAR VOLUME 109.5 fL (80.0-94.0); MEAN PLATELET VOLUME 12.9 fl (7.4-10.4); MONOCYTES % 5.6 % (2.0-8.0); NEUTROPHILS % 71.9 % (40.0-76.0); PLATELET 65 x1000/uL (130-400); RED BLOOD CELL COUNT 2.98 mill/uL (4.7-6.1); RED CELL DISTRIBUTION WIDTH 14.5 % (11.6-14.6)
[2021-10-29 05:23] LABS: CHLORIDE 118 mEq/L (98-107)
[2021-10-29 05:26] LABS: INR 1.2; PARTIAL THROMBOPLASTIN TIME 27.5 sec (23.4-31.0); PROTHROMBIN TIME 12.4 sec (9.6-11.0)
[2021-10-29 05:28] LABS: AMYLASE 27 IU/L (25-115)
[2021-10-29 05:30] LABS: PHOSPHORUS 2.1 mg/dL (2.5-4.9)
[2021-10-29 05:44] LABS: CREATINE KINASE 1596 IU/L (39-308)
[2021-10-29] MEDS: VALPROATE SODIUM 250MG/5ML UDC GT SCH ×4 (06:00→18:39)
[2021-10-29] MEDS: ACETYLCYSTEINE 100MG/ML 10% VIAL 4ML INH SCH ×2 (06:12→11:42)
[2021-10-29] MEDS: PIPERACILLIN/TAZOBACTAM 3.375G in DEXT 5% WATER 50ML IV SCH ×3 (06:38→21:48)
[2021-10-29] MEDS ORDERED: POTASSIUM CHLORIDE 20MEQ/PACKET PO NR (08:15)
[2021-10-29] MEDS ORDERED: VANCOMYCIN 1G PREMIX 200 ML IV SCH (09:00)
[2021-10-29] MEDS: MIDODRINE HCL 5MG TABLET PO SCH ×3 (09:10→17:00)
[2021-10-29] MEDS: QUETIAPINE FUMARATE 50MG TABLET PO SCH (09:10)
[2021-10-29] MEDS ORDERED: POTASSIUM PHOS,M-BASIC-D-BASIC 15 MMOL in DEXT 5% WATER 245 ML IV ONE (10:00)
[2021-10-29] MEDS: NOREPINEPHRINE 8 MG in DEXTROSE 5% WATER 250 ML IV PRN (20:25)
[2021-10-29] MEDS: BENZTROPINE MESYLATE 1 MG/ML 2ML VIAL IM SCH (20:26)
[2021-10-29] MEDS: VANCOMYCIN 1G PREMIX 200 ML IV SCH (20:30)
[2021-10-30] VITALS (53 sets, daily range): BP systolic 58–182; BP diastolic 23–141
[2021-10-30] MEDS: ACETYLCYSTEINE 100MG/ML 10% VIAL 4ML INH SCH ×2 (00:14→13:29)
[2021-10-30] MEDS: IPRATROPIUM BROMIDE (0.02%) 0.5MG/2.5ML NEB HHN SCH ×6 (00:14→20:36)
[2021-10-30] MEDS: NOREPINEPHRINE 8 MG in DEXTROSE 5% WATER 250 ML IV PRN ×4 (01:23→21:03)
[2021-10-30] MEDS: PIPERACILLIN/TAZOBACTAM 3.375G in DEXT 5% WATER 50ML IV SCH ×3 (05:48→21:02)
[2021-10-30] MEDS: VALPROATE SODIUM 250MG/5ML UDC GT SCH ×5 (05:48→23:03)
[2021-10-30] MEDS ORDERED: BUPIVACAINE HCL/PF 0.5% (5MG/ML) 10ML ONE (05:58)
[2021-10-30] MEDS ORDERED: POLYMYXIN B SULFATE 500000 UNITS/VIAL ONE (05:58)
[2021-10-30] MEDS ORDERED: LIDOCAINE HCL 1% 20ML VIAL (Pyxis) INJ ONE (05:58)
[2021-10-30 07:29] LABS: CHLORIDE 117 mEq/L (98-107)
[2021-10-30 07:35] LABS: PHOSPHORUS 1.6 mg/dL (2.5-4.9)
[2021-10-30] MEDS: MIDODRINE HCL 5MG TABLET PO SCH ×3 (08:16→17:32)
[2021-10-30] MEDS: QUETIAPINE FUMARATE 50MG TABLET PO SCH (08:16)
[2021-10-30] MEDS: DEXTROSE 5% WATER 1,000 ML IV SCH ×2 (08:52→17:33)
[2021-10-30] MEDS: VANCOMYCIN 1G PREMIX 200 ML IV SCH ×3 (08:53→23:25)
[2021-10-30] MEDS: PHENYLEPHRINE 100 MG in DEXT 5% WATER 240 ML IV PRN ×3 (08:56→23:03)
[2021-10-30] MEDS ORDERED: POTASSIUM PHOS,M-BASIC-D-BASIC 20 MMOL in DEXT 5% WATER 243.3333 ML IV NR (09:00)
[2021-10-30 09:02] LABS: BASOPHILS % 0.5 % (0.0-2.0); EOSINOPHILS % 4.5 % (0.0-5.0); HEMATOCRIT. 30.2 % (42.0-52.0); HEMOGLOBIN. 10.1 g/dL (14.0-18.0); LYMPHOCYTES % 11.2 % (20.0-50.0); MEAN CORPUSCULAR HEMOGLOBIN 36.8 pg (28.0-32.0); MEAN CORPUSCULAR VOLUME 110.3 fL (80.0-94.0); MEAN PLATELET VOLUME 11.1 fl (7.4-10.4); MONOCYTES % 4.3 % (2.0-8.0); NEUTROPHILS % 79.5 % (40.0-76.0); PLATELET 68 x1000/uL (130-400); RED BLOOD CELL COUNT 2.73 mill/uL (4.7-6.1); RED CELL DISTRIBUTION WIDTH 14.9 % (11.6-14.6)
[2021-10-30 09:29] LABS: CREATINE KINASE 707 IU/L (39-308)
[2021-10-30] MEDS ORDERED: ETOMIDATE 2MG/ML 10ML VIAL IV ONE (09:46)
[2021-10-30] MEDS ORDERED: MIDAZOLAM HCL 2 MG/2 ML VIAL ONE (09:48)
[2021-10-30] MEDS ORDERED: LIDOCAINE HCL 1% 10 MG/ML 10ML VIAL ONE (10:29)
[2021-10-30] MEDS ORDERED: ONDANSETRON HCL 4MG/2ML INJ ONE (10:29)
[2021-10-30] MEDS ORDERED: CEFAZOLIN SODIUM 1000MG/VIAL ONE (10:29)
[2021-10-30] MEDS ORDERED: DEXAMETHASONE 4MG/ML 1ML VIAL ONE (10:29)
[2021-10-30 19:22] LABS: TOTAL IRON BINDING CAPACITY 213 ug/dL (250-450)
[2021-10-30 19:41] LABS: FOLIC ACID (FOLATE) SERUM 7.3 ng/mL (>5.38)
[2021-10-30] MEDS: ONDANSETRON HCL 4MG/2ML INJ IV PRN (21:02)
[2021-10-30] MEDS: BENZTROPINE MESYLATE 1 MG/ML 2ML VIAL IM SCH (21:02)
[2021-10-30] MEDS: ACETAMINOPHEN 650MG/20.3ML UDC GT PRN (23:03)
[2021-10-31] VITALS (88 sets, daily range): BP systolic 54–169; BP diastolic 27–105
[2021-10-31] MEDS: ACETYLCYSTEINE 100MG/ML 10% VIAL 4ML INH SCH ×3 (00:24→16:10)
[2021-10-31] MEDS: IPRATROPIUM BROMIDE (0.02%) 0.5MG/2.5ML NEB HHN SCH ×6 (00:24→21:06)
[2021-10-31] MEDS: DEXTROSE 5% WATER 1,000 ML IV SCH (04:09)
[2021-10-31] MEDS: VANCOMYCIN 1G PREMIX 200 ML IV SCH (05:13)
[2021-10-31] MEDS: PIPERACILLIN/TAZOBACTAM 3.375G in DEXT 5% WATER 50ML IV SCH ×3 (05:13→22:25)
[2021-10-31] MEDS: ONDANSETRON HCL 4MG/2ML INJ IV PRN ×2 (05:13→22:24)
[2021-10-31] MEDS: VALPROATE SODIUM 250MG/5ML UDC GT SCH ×4 (05:13→23:49)
[2021-10-31] MEDS: PHENYLEPHRINE 100 MG in DEXT 5% WATER 240 ML IV PRN ×3 (05:46→22:26)
[2021-10-31 06:10] LABS: CHLORIDE 111 mEq/L (98-107)
[2021-10-31 06:20] LABS: CREATINE KINASE 498 IU/L (39-308)
[2021-10-31] MEDS ORDERED: DEXTROSE 50% WATER 50ML SYRINGE IV PRN (09:15)
[2021-10-31] MEDS ORDERED: BLOOD SUGAR DIAGNOSTIC STRIP TEST SCH (09:30)
[2021-10-31] MEDS: QUETIAPINE FUMARATE 50MG TABLET PO SCH (09:33)
[2021-10-31] MEDS: MIDODRINE HCL 5MG TABLET PO SCH ×3 (09:34→17:14)
[2021-10-31] MEDS: HYDROCODONE/ACETAMINOPHEN 5/325MG TABLET PEG PRN ×2 (09:35→22:26)
[2021-10-31] MEDS: INSULIN GLARGINE UD 100 UNITS/ML SYR SUBCUT SCH (12:02)
[2021-10-31] MEDS: BLOOD SUGAR DIAGNOSTIC STRIP TEST SCH ×3 (12:28→23:50)
[2021-10-31] MEDS: INSULIN LISPRO 100 UNITS/ML SUBCUT SCH ×3 (12:53→21:00)
[2021-10-31] MEDS: VANCOMYCIN 1250MG in DEXTROSE 5% WATER 250ML IV SCH (19:14)
[2021-10-31] MEDS: BENZTROPINE MESYLATE 1 MG/ML 2ML VIAL IM SCH (22:29)
[2021-11-01] VITALS (94 sets, daily range): BP systolic 57–162; BP diastolic 30–103
[2021-11-01] MEDS: IPRATROPIUM BROMIDE (0.02%) 0.5MG/2.5ML NEB HHN SCH ×5 (00:47→21:21)
[2021-11-01] MEDS: PHENYLEPHRINE 100 MG in DEXT 5% WATER 240 ML IV PRN ×3 (03:10→23:05)
[2021-11-01] MEDS: PIPERACILLIN/TAZOBACTAM 3.375G in DEXT 5% WATER 50ML IV SCH ×3 (05:10→21:45)
[2021-11-01] MEDS: VALPROATE SODIUM 250MG/5ML UDC GT SCH ×4 (05:10→23:05)
[2021-11-01] MEDS: BLOOD SUGAR DIAGNOSTIC STRIP TEST SCH ×4 (05:11→22:29)
[2021-11-01] MEDS: INSULIN LISPRO 100 UNITS/ML SUBCUT SCH ×4 (05:11→20:11)
[2021-11-01] MEDS: VANCOMYCIN 1250MG in DEXTROSE 5% WATER 250ML IV SCH ×2 (06:00→17:29)
[2021-11-01] MEDS: ACETYLCYSTEINE 100MG/ML 10% VIAL 4ML INH SCH (08:42)
[2021-11-01] MEDS: QUETIAPINE FUMARATE 50MG TABLET PO SCH (09:06)
[2021-11-01] MEDS: MIDODRINE HCL 5MG TABLET PO SCH (09:07)
[2021-11-01] MEDS: HYDROCODONE/ACETAMINOPHEN 5/325MG TABLET PEG PRN (09:07)
[2021-11-01] MEDS: INSULIN GLARGINE UD 100 UNITS/ML SYR SUBCUT SCH (09:08)
[2021-11-01] MEDS ORDERED: NALOXONE HCL 0.4MG/ML VIAL IV PRN (11:00)
[2021-11-01 11:14] LABS: HEMATOCRIT. 28.2 % (42.0-52.0); HEMOGLOBIN. 9.4 g/dL (14.0-18.0); MEAN CORPUSCULAR VOLUME 110.9 fL (80.0-94.0); MEAN PLATELET VOLUME 10.3 fl (7.4-10.4); PLATELET 82 x1000/uL (130-400); RED BLOOD CELL COUNT 2.54 mill/uL (4.7-6.1); RED CELL DISTRIBUTION WIDTH 15.3 % (11.6-14.6)
[2021-11-01 11:39] LABS: CHLORIDE 106 mEq/L (98-107)
[2021-11-01 11:47] LABS: PHOSPHORUS 2.6 mg/dL (2.5-4.9)
[2021-11-01 12:01] LABS: CREATINE KINASE 199 IU/L (39-308)
[2021-11-01] MEDS ORDERED: POTASSIUM CHLORIDE 20MEQ/PACKET GT NR (13:00)
[2021-11-01] MEDS: MIDODRINE HCL 5MG TABLET PEG SCH ×2 (13:07→17:28)
[2021-11-01 17:19] LABS: NUCLEATED RED BLOOD CELLS 4 /100 WBC
[2021-11-01 17:20] LABS: PLATELET ESTIMATE DECREASED
[2021-11-01] MEDS: BENZTROPINE MESYLATE 1 MG/ML 2ML VIAL IM SCH (21:46)
[2021-11-02] VITALS (84 sets, daily range): BP systolic 73–154; BP diastolic 38–71
[2021-11-02] MEDS: IPRATROPIUM BROMIDE (0.02%) 0.5MG/2.5ML NEB HHN SCH ×6 (00:45→21:00)
[2021-11-02] MEDS: VANCOMYCIN 1250MG in DEXTROSE 5% WATER 250ML IV SCH (05:14)
[2021-11-02] MEDS: VALPROATE SODIUM 250MG/5ML UDC GT SCH ×3 (05:14→17:24)
[2021-11-02] MEDS: INSULIN LISPRO 100 UNITS/ML SUBCUT SCH ×3 (05:15→18:00)
[2021-11-02] MEDS: BLOOD SUGAR DIAGNOSTIC STRIP TEST SCH ×3 (05:15→18:55)
[2021-11-02 06:18] LABS: HEMATOCRIT. 30.1 % (42.0-52.0); HEMOGLOBIN. 9.7 g/dL (14.0-18.0); MEAN CORPUSCULAR HEMOGLOBIN 35.7 pg (28.0-32.0); MEAN CORPUSCULAR VOLUME 111.2 fL (80.0-94.0); MEAN PLATELET VOLUME 10.3 fl (7.4-10.4); PLATELET 102 x1000/uL (130-400); RED BLOOD CELL COUNT 2.71 mill/uL (4.7-6.1); RED CELL DISTRIBUTION WIDTH 15.7 % (11.6-14.6)
[2021-11-02] MEDS: PIPERACILLIN/TAZOBACTAM 3.375G in DEXT 5% WATER 50ML IV SCH ×3 (06:46→21:19)
[2021-11-02 06:52] LABS: CHLORIDE 104 mEq/L (98-107)
[2021-11-02 07:01] LABS: PHOSPHORUS 2.6 mg/dL (2.5-4.9); VANCOMYCIN TROUGH 22.6 ug/mL (5.0-10.0)
[2021-11-02 07:03] LABS: CREATINE KINASE 165 IU/L (39-308)
[2021-11-02] MEDS ORDERED: POTASSIUM CHLORIDE 20MEQ/PACKET PO SCH (08:15)
[2021-11-02] MEDS: QUETIAPINE FUMARATE 50MG TABLET PO SCH (09:15)
[2021-11-02] MEDS: MIDODRINE HCL 5MG TABLET PEG SCH ×3 (09:15→17:24)
[2021-11-02] MEDS: INSULIN GLARGINE UD 100 UNITS/ML SYR SUBCUT SCH (09:29)
[2021-11-02] MEDS: PHENYLEPHRINE 100 MG in DEXT 5% WATER 240 ML IV PRN (10:14)
[2021-11-02 13:51] LABS: NUCLEATED RED BLOOD CELLS 2 /100 WBC; PLATELET ESTIMATE SLIGHTLY DECREASED
[2021-11-02] MEDS: BENZTROPINE MESYLATE 1 MG/ML 2ML VIAL IM SCH (21:21)
[2021-11-02] MEDS ORDERED: VANCOMYCIN 1500MG in DEXTROSE 5% WATER 250ML IV SCH (23:30)
[2021-11-03] VITALS (82 sets, daily range): BP systolic 54–150; BP diastolic 32–85
[2021-11-03] MEDS: BLOOD SUGAR DIAGNOSTIC STRIP TEST SCH ×4 (00:34→18:04)
[2021-11-03] MEDS: VALPROATE SODIUM 250MG/5ML UDC GT SCH ×4 (00:34→17:53)
[2021-11-03] MEDS: IPRATROPIUM BROMIDE (0.02%) 0.5MG/2.5ML NEB HHN SCH ×6 (00:40→20:11)
[2021-11-03] MEDS: INSULIN LISPRO 100 UNITS/ML SUBCUT SCH ×4 (05:57→18:00)
[2021-11-03 07:13] LABS: BASOPHILS % 0.6 % (0.0-2.0); EOSINOPHILS % 2.4 % (0.0-5.0); HEMATOCRIT. 30.9 % (42.0-52.0); HEMOGLOBIN. 10.3 g/dL (14.0-18.0); LYMPHOCYTES % 30.7 % (20.0-50.0); MEAN PLATELET VOLUME 9.8 fl (7.4-10.4); NEUTROPHILS % 60.3 % (40.0-76.0); PLATELET 113 x1000/uL (130-400); RED BLOOD CELL COUNT 2.79 mill/uL (4.7-6.1)
[2021-11-03 07:14] LABS: CHLORIDE 102 mEq/L (98-107)
[2021-11-03 07:20] LABS: PHOSPHORUS 3.4 mg/dL (2.5-4.9)
[2021-11-03] MEDS: MIDODRINE HCL 5MG TABLET PEG SCH ×3 (08:58→17:53)
[2021-11-03] MEDS: QUETIAPINE FUMARATE 50MG TABLET PO SCH (08:58)
[2021-11-03] MEDS: PHENYLEPHRINE 100 MG in DEXT 5% WATER 240 ML IV PRN ×2 (08:59→21:15)
[2021-11-03] MEDS: INSULIN GLARGINE UD 100 UNITS/ML SYR SUBCUT SCH (09:00)
[2021-11-03] MEDS: ENOXAPARIN 30MG/0.3ML SYR SUBCUT SCH ×2 (13:18→23:00)
[2021-11-03] MEDS: PIPERACILLIN/TAZOBACTAM 3.375 G in DEXTROSE 5% WATER 50 ML IV SCH ×2 (15:30→21:46)
[2021-11-03] MEDS: BENZTROPINE MESYLATE 1 MG/ML 2ML VIAL IM SCH (21:44)
[2021-11-03] MEDS: DOCUSATE SODIUM SUGAR FREE 100MG/10ML UDC NG PRN (21:44)
[2021-11-04] VITALS (49 sets, daily range): BP systolic 64–137; BP diastolic 39–88
[2021-11-04] MEDS: IPRATROPIUM BROMIDE (0.02%) 0.5MG/2.5ML NEB HHN SCH ×6 (02:16→21:12)
[2021-11-04] MEDS: PIPERACILLIN/TAZOBACTAM 3.375 G in DEXTROSE 5% WATER 50 ML IV SCH ×3 (06:00→21:16)
[2021-11-04] MEDS: INSULIN LISPRO 100 UNITS/ML SUBCUT SCH ×4 (06:00→16:47)
[2021-11-04] MEDS: VALPROATE SODIUM 250MG/5ML UDC GT SCH ×4 (06:24→17:02)
[2021-11-04] MEDS: BLOOD SUGAR DIAGNOSTIC STRIP TEST SCH ×4 (06:25→16:47)
[2021-11-04] MEDS: PHENYLEPHRINE 100 MG in DEXT 5% WATER 240 ML IV PRN ×2 (07:30→19:31)
[2021-11-04] MEDS: ENOXAPARIN 30MG/0.3ML SYR SUBCUT SCH ×2 (08:34→21:16)
[2021-11-04] MEDS: QUETIAPINE FUMARATE 50MG TABLET PO SCH (08:35)
[2021-11-04] MEDS: MIDODRINE HCL 5MG TABLET PEG SCH ×3 (08:35→17:03)
[2021-11-04 09:19] LABS: BASOPHILS % 0.9 % (0.0-2.0); EOSINOPHILS % 2.1 % (0.0-5.0); HEMOGLOBIN. 9.9 g/dL (14.0-18.0); MEAN CORPUSCULAR HEMOGLOBIN 37.2 pg (28.0-32.0); MEAN CORPUSCULAR VOLUME 108.9 fL (80.0-94.0); MEAN PLATELET VOLUME 9.3 fl (7.4-10.4); MONOCYTES % 5.8 % (2.0-8.0); NEUTROPHILS % 70.2 % (40.0-76.0); PLATELET 108 x1000/uL (130-400); RED BLOOD CELL COUNT 2.66 mill/uL (4.7-6.1); RED CELL DISTRIBUTION WIDTH 15.2 % (11.6-14.6)
[2021-11-04 09:32] LABS: CHLORIDE 104 mEq/L (98-107)
[2021-11-04] MEDS: INSULIN GLARGINE UD 100 UNITS/ML SYR SUBCUT SCH (09:58)
[2021-11-04] MEDS ORDERED: SODIUM CHLORIDE 0.9% 500 ML IV ONE (11:15)
[2021-11-04] MEDS: BENZTROPINE MESYLATE 1 MG/ML 2ML VIAL IM SCH (21:15)
[2021-11-05] VITALS (93 sets, daily range): BP systolic 61–128; BP diastolic 42–77
[2021-11-05] MEDS: IPRATROPIUM BROMIDE (0.02%) 0.5MG/2.5ML NEB HHN SCH ×5 (00:59→20:56)
[2021-11-05] MEDS: VALPROATE SODIUM 250MG/5ML UDC GT SCH ×4 (01:03→17:17)
[2021-11-05 05:58] LABS: BASOPHILS % 0.5 % (0.0-2.0); EOSINOPHILS % 2.6 % (0.0-5.0); HEMATOCRIT. 28.4 % (42.0-52.0); HEMOGLOBIN. 9.5 g/dL (14.0-18.0); LYMPHOCYTES % 28.4 % (20.0-50.0); MEAN CORPUSCULAR HEMOGLOBIN 36.1 pg (28.0-32.0); MEAN CORPUSCULAR VOLUME 108.2 fL (80.0-94.0); MONOCYTES % 6.2 % (2.0-8.0); NEUTROPHILS % 62.3 % (40.0-76.0); PLATELET 121 x1000/uL (130-400); RED BLOOD CELL COUNT 2.63 mill/uL (4.7-6.1); RED CELL DISTRIBUTION WIDTH 15.6 % (11.6-14.6)
[2021-11-05] MEDS: INSULIN LISPRO 100 UNITS/ML SUBCUT SCH ×4 (06:00→17:17)
[2021-11-05 06:17] LABS: CHLORIDE 104 mEq/L (98-107)
[2021-11-05] MEDS: BLOOD SUGAR DIAGNOSTIC STRIP TEST SCH ×4 (06:34→17:17)
[2021-11-05] MEDS: PIPERACILLIN/TAZOBACTAM 3.375 G in DEXTROSE 5% WATER 50 ML IV SCH ×3 (06:41→21:50)
[2021-11-05] MEDS: ENOXAPARIN 30MG/0.3ML SYR SUBCUT SCH ×2 (08:20→21:50)
[2021-11-05] MEDS: MIDODRINE HCL 5MG TABLET PEG SCH ×3 (08:20→21:50)
[2021-11-05] MEDS: QUETIAPINE FUMARATE 50MG TABLET PO SCH (08:20)
[2021-11-05] MEDS: INSULIN GLARGINE UD 100 UNITS/ML SYR SUBCUT SCH (10:06)
[2021-11-05] MEDS: PHENYLEPHRINE 100 MG in DEXT 5% WATER 240 ML IV PRN (14:53)
[2021-11-05] MEDS: DAPTOMYCIN 650 MG in SODIUM CHLORIDE 0.9% 50 ML IV SCH (15:39)
[2021-11-05] MEDS: FLUCONAZOLE 200MG/5ML ORAL SYR GT SCH (15:41)
[2021-11-05] MEDS: BENZTROPINE MESYLATE 1 MG/ML 2ML VIAL IM SCH (21:50)
[2021-11-06] VITALS (73 sets, daily range): BP systolic 71–119; BP diastolic 34–80
[2021-11-06] MEDS: BLOOD SUGAR DIAGNOSTIC STRIP TEST SCH ×4 (00:49→17:05)
[2021-11-06] MEDS: VALPROATE SODIUM 250MG/5ML UDC GT SCH ×4 (00:54→17:05)
[2021-11-06] MEDS: IPRATROPIUM BROMIDE (0.02%) 0.5MG/2.5ML NEB HHN SCH ×7 (03:31→23:49)
[2021-11-06] MEDS: INSULIN LISPRO 100 UNITS/ML SUBCUT SCH ×4 (06:00→17:05)
[2021-11-06] MEDS: MIDODRINE HCL 5MG TABLET PEG SCH ×3 (06:10→22:45)
[2021-11-06] MEDS: PIPERACILLIN/TAZOBACTAM 3.375 G in DEXTROSE 5% WATER 50 ML IV SCH ×3 (06:10→22:45)
[2021-11-06] MEDS: ENOXAPARIN 30MG/0.3ML SYR SUBCUT SCH ×2 (08:13→22:44)
[2021-11-06] MEDS: QUETIAPINE FUMARATE 50MG TABLET PO SCH (08:13)
[2021-11-06] MEDS: FLUCONAZOLE 200MG/5ML ORAL SYR GT SCH (08:13)
[2021-11-06] MEDS: INSULIN GLARGINE UD 100 UNITS/ML SYR SUBCUT SCH (09:35)
[2021-11-06] MEDS: DAPTOMYCIN 650 MG in SODIUM CHLORIDE 0.9% 50 ML IV SCH (15:40)
[2021-11-06] MEDS: BENZTROPINE MESYLATE 1 MG/ML 2ML VIAL IM SCH (22:44)
[2021-11-07] VITALS (40 sets, daily range): BP systolic 81–132; BP diastolic 44–116
[2021-11-07] MEDS: VALPROATE SODIUM 250MG/5ML UDC GT SCH ×4 (01:21→17:14)
[2021-11-07] MEDS: IPRATROPIUM BROMIDE (0.02%) 0.5MG/2.5ML NEB HHN SCH ×5 (04:07→22:16)
[2021-11-07] MEDS: BLOOD SUGAR DIAGNOSTIC STRIP TEST SCH ×4 (05:56→17:14)
[2021-11-07] MEDS: INSULIN LISPRO 100 UNITS/ML SUBCUT SCH ×4 (05:57→17:14)
[2021-11-07] MEDS: MIDODRINE HCL 5MG TABLET PEG SCH ×3 (06:02→21:53)
[2021-11-07] MEDS: PIPERACILLIN/TAZOBACTAM 3.375 G in DEXTROSE 5% WATER 50 ML IV SCH ×3 (06:02→21:34)
[2021-11-07] MEDS: ACETAMINOPHEN 650MG/20.3ML UDC GT PRN ×2 (06:49→21:34)
[2021-11-07] MEDS: QUETIAPINE FUMARATE 50MG TABLET PO SCH (08:21)
[2021-11-07] MEDS: FLUCONAZOLE 200MG/5ML ORAL SYR GT SCH (08:21)
[2021-11-07] MEDS: ENOXAPARIN 30MG/0.3ML SYR SUBCUT SCH ×2 (08:21→21:33)
[2021-11-07] MEDS: INSULIN GLARGINE UD 100 UNITS/ML SYR SUBCUT SCH (09:10)
[2021-11-07 10:39] LABS: BASOPHILS % 0.5 % (0.0-2.0); EOSINOPHILS % 0.7 % (0.0-5.0); HEMATOCRIT. 28.5 % (42.0-52.0); HEMOGLOBIN. 9.4 g/dL (14.0-18.0); LYMPHOCYTES % 37.9 % (20.0-50.0); MEAN CORPUSCULAR HEMOGLOBIN 36.1 pg (28.0-32.0); MEAN CORPUSCULAR VOLUME 109.8 fL (80.0-94.0); MEAN PLATELET VOLUME 8.7 fl (7.4-10.4); NEUTROPHILS % 54.9 % (40.0-76.0); PLATELET 141 x1000/uL (130-400); RED CELL DISTRIBUTION WIDTH 15.1 % (11.6-14.6)
[2021-11-07] MEDS: DAPTOMYCIN 650 MG in SODIUM CHLORIDE 0.9% 50 ML IV SCH (16:31)
[2021-11-07] MEDS: BENZTROPINE MESYLATE 1 MG/ML 2ML VIAL IM SCH (21:33)
[2021-11-08] VITALS (8 sets, daily range): BP systolic 96–136; BP diastolic 49–78
[2021-11-08] MEDS: BLOOD SUGAR DIAGNOSTIC STRIP TEST SCH ×4 (00:58→18:24)
[2021-11-08] MEDS: VALPROATE SODIUM 250MG/5ML UDC GT SCH ×4 (01:00→18:29)
[2021-11-08] MEDS: IPRATROPIUM BROMIDE (0.02%) 0.5MG/2.5ML NEB HHN SCH ×5 (02:57→15:39)
[2021-11-08] MEDS: ACETAMINOPHEN 650MG/20.3ML UDC GT PRN ×2 (03:41→21:50)
[2021-11-08] MEDS: INSULIN LISPRO 100 UNITS/ML SUBCUT SCH ×4 (06:00→18:00)
[2021-11-08 06:24] LABS: BASOPHILS % 0.5 % (0.0-2.0); EOSINOPHILS % 0.5 % (0.0-5.0); HEMATOCRIT. 28.8 % (42.0-52.0); HEMOGLOBIN. 9.4 g/dL (14.0-18.0); LYMPHOCYTES % 29.6 % (20.0-50.0); MEAN CORPUSCULAR HEMOGLOBIN 36.9 pg (28.0-32.0); MEAN CORPUSCULAR VOLUME 112.8 fL (80.0-94.0); MEAN PLATELET VOLUME 8.6 fl (7.4-10.4); MONOCYTES % 7.9 % (2.0-8.0); NEUTROPHILS % 61.5 % (40.0-76.0); PLATELET 146 x1000/uL (130-400); RED BLOOD CELL COUNT 2.56 mill/uL (4.7-6.1); RED CELL DISTRIBUTION WIDTH 16.1 % (11.6-14.6)
[2021-11-08] MEDS: MIDODRINE HCL 5MG TABLET PEG SCH ×3 (06:46→21:49)
[2021-11-08] MEDS: PIPERACILLIN/TAZOBACTAM 3.375 G in DEXTROSE 5% WATER 50 ML IV SCH ×2 (06:47→13:19)
[2021-11-08] MEDS: ENOXAPARIN 30MG/0.3ML SYR SUBCUT SCH ×2 (10:24→21:51)
[2021-11-08] MEDS: QUETIAPINE FUMARATE 50MG TABLET PO SCH (10:24)
[2021-11-08] MEDS: INSULIN GLARGINE UD 100 UNITS/ML SYR SUBCUT SCH (10:25)
[2021-11-08] MEDS: FLUCONAZOLE 200MG/5ML ORAL SYR GT SCH (11:48)
[2021-11-08] MEDS: DAPTOMYCIN 650 MG in SODIUM CHLORIDE 0.9% 50 ML IV SCH (16:35)
[2021-11-09] VITALS: BP_SYST 103; BP_SYST 115; BP_DIAS 50; BP_DIAS 68
[2021-11-09] MEDS: VALPROATE SODIUM 250MG/5ML UDC GT SCH ×4 (00:47→19:30)
[2021-11-09] MEDS: BLOOD SUGAR DIAGNOSTIC STRIP TEST SCH ×4 (00:47→16:15)
[2021-11-09] MEDS: BENZTROPINE MESYLATE 1 MG/ML 2ML VIAL IM SCH ×2 (01:04→21:00)
[2021-11-09 04:00] VITALS: BP 124/67
[2021-11-09] MEDS: MIDODRINE HCL 5MG TABLET PEG SCH ×3 (05:44→21:36)
[2021-11-09] MEDS: ACETAMINOPHEN 650MG/20.3ML UDC GT PRN ×2 (05:44→16:29)
[2021-11-09] MEDS: INSULIN LISPRO 100 UNITS/ML SUBCUT SCH ×4 (06:00→16:15)
[2021-11-09 06:31] LABS: BASOPHILS % 0.5 % (0.0-2.0); EOSINOPHILS % 0.1 % (0.0-5.0); HEMATOCRIT. 30.3 % (42.0-52.0); HEMOGLOBIN. 9.9 g/dL (14.0-18.0); LYMPHOCYTES % 33.4 % (20.0-50.0); MEAN CORPUSCULAR HEMOGLOBIN 36.7 pg (28.0-32.0); MEAN CORPUSCULAR VOLUME 111.9 fL (80.0-94.0); MEAN PLATELET VOLUME 8.7 fl (7.4-10.4); MONOCYTES % 8.8 % (2.0-8.0); NEUTROPHILS % 57.2 % (40.0-76.0); PLATELET 155 x1000/uL (130-400); RED BLOOD CELL COUNT 2.71 mill/uL (4.7-6.1); RED CELL DISTRIBUTION WIDTH 15.8 % (11.6-14.6)
[2021-11-09] MEDS: IPRATROPIUM BROMIDE (0.02%) 0.5MG/2.5ML NEB HHN SCH ×4 (09:17→23:40)
[2021-11-09] MEDS: FLUCONAZOLE 200MG/5ML ORAL SYR GT SCH (09:35)
[2021-11-09] MEDS: QUETIAPINE FUMARATE 50MG TABLET PO SCH (09:37)
[2021-11-09] MEDS: ENOXAPARIN 30MG/0.3ML SYR SUBCUT SCH ×2 (09:37→21:37)
[2021-11-09] MEDS: INSULIN GLARGINE UD 100 UNITS/ML SYR SUBCUT SCH (09:41)
[2021-11-09] MEDS: DOCUSATE SODIUM SUGAR FREE 100MG/10ML UDC NG PRN ×2 (09:57→16:29)
[2021-11-09] MEDS ORDERED: DIPHENHYDRAMINE 50MG/ML VIAL IV NR (14:30)
[2021-11-09 20:00] VITALS: BP 107/64
[2021-11-09] MEDS: HYDROCORTISONE 1% CREAM 30GM TOP SCH (21:37)
[2021-11-10] VITALS: BP 119/74
[2021-11-10 04:00] VITALS: BP 112/59
[2021-11-10] MEDS: IPRATROPIUM BROMIDE (0.02%) 0.5MG/2.5ML NEB HHN SCH ×5 (05:01→20:35)
[2021-11-10] MEDS: INSULIN LISPRO 100 UNITS/ML SUBCUT SCH ×4 (06:00→17:36)
[2021-11-10] MEDS: MIDODRINE HCL 5MG TABLET PEG SCH ×3 (06:10→22:00)
[2021-11-10] MEDS: BLOOD SUGAR DIAGNOSTIC STRIP TEST SCH ×4 (06:10→17:34)
[2021-11-10] MEDS: VALPROATE SODIUM 250MG/5ML UDC GT SCH ×4 (06:10→17:58)
[2021-11-10 06:47] LABS: BASOPHILS % 0.6 % (0.0-2.0); HEMATOCRIT. 25.9 % (42.0-52.0); HEMOGLOBIN. 8.6 g/dL (14.0-18.0); LYMPHOCYTES % 33.5 % (20.0-50.0); MEAN CORPUSCULAR HEMOGLOBIN 36.3 pg (28.0-32.0); MEAN CORPUSCULAR VOLUME 108.8 fL (80.0-94.0); MEAN PLATELET VOLUME 9.2 fl (7.4-10.4); MONOCYTES % 8.4 % (2.0-8.0); NEUTROPHILS % 56.5 % (40.0-76.0); PLATELET 136 x1000/uL (130-400); RED BLOOD CELL COUNT 2.38 mill/uL (4.7-6.1); RED CELL DISTRIBUTION WIDTH 15.3 % (11.6-14.6)
[2021-11-10 08:00] VITALS: BP 93/60
[2021-11-10] MEDS: QUETIAPINE FUMARATE 50MG TABLET PO SCH (09:42)
[2021-11-10] MEDS: ENOXAPARIN 30MG/0.3ML SYR SUBCUT SCH ×2 (09:42→21:36)
[2021-11-10] MEDS: HYDROCORTISONE 1% CREAM 30GM TOP SCH ×2 (09:43→21:36)
[2021-11-10] MEDS: ACETAMINOPHEN 650MG/20.3ML UDC GT PRN (09:43)
[2021-11-10] MEDS ORDERED: PIPERACILLIN/TAZOBACTAM 3.375G in DEXT 5% WATER 50ML IV SCH (10:00)
[2021-11-10 10:55] LABS: BG BASE EXCESS 0.1 mmol/L (-2.0-2.0); BG CARBOXYHEMOGLOBIN 0.1 % (0.5-1.5); BG DEOXYHEMOGLOBIN 5.8 % (0.0-5.0); BG FRACTION INSPIRED OXYGEN 21; BG METHEMOGLOBIN 0.2 % (0.0-1.5); BG OXYGEN SATURATION 94.2 % (92.0-98.5); BG OXYHEMOGLOBIN 93.9 % (94.0-97.0); BG PCO2 26.4 mmHg (35.0-45.0); BG PH 7.538 (7.350-7.450); BG PO2 68.8 mmHg (75.0-100.0); BG SAMPLE SITE RIGHT RADIAL; BG TOTAL HEMOGLOBIN 9.5 g/dL (12.0-18.0); BG VENT MODE ROOM AIR
[2021-11-10] MEDS ORDERED: VANCOMYCIN 1250MG in DEXTROSE 5% WATER 250ML IV SCH (11:00)
[2021-11-10] MEDS: SODIUM CHLORIDE 0.45% 1,000 ML IV SCH (11:36)
[2021-11-10] MEDS: INSULIN GLARGINE UD 100 UNITS/ML SYR SUBCUT SCH (11:48)
[2021-11-10 12:00] VITALS: BP 110/53
[2021-11-10] MEDS ORDERED: DIPHENHYDRAMINE 50MG/ML VIAL IV NR (13:15)
[2021-11-10 16:00] VITALS: BP 112/64
[2021-11-10 20:00] VITALS: BP 121/78
[2021-11-10] MEDS ORDERED: PIPERACILLIN/TAZOBACTAM 3.375 G in DEXTROSE 5% WATER 50 ML IV SCH (21:00)
[2021-11-10] MEDS: BENZTROPINE MESYLATE 1 MG/ML 2ML VIAL IM SCH (21:35)
[2021-11-10 22:08] LABS: CLARITY URINE CLEAR (CLEAR); COLOR URINE DARK YELLOW (YELLOW); KETONES URINE TRACE (NEGATIVE); LEUKOCYTE ESTERASE URINE TRACE (NEGATIVE); NITRITE URINE NEGATIVE (NEGATIVE); OCCULT BLOOD URINE TRACE (NEGATIVE); PH URINE 5.5 (4.5-8.0); PROTEIN URINE 2+ (NEGATIVE); SPECIFIC GRAVITY URINE 1.025 (1.005-1.030)
[2021-11-11] VITALS: BP 116/66
[2021-11-11] MEDS: SODIUM CHLORIDE 0.45% 1,000 ML IV SCH ×2 (02:52→13:52)
[2021-11-11] MEDS: ACETAMINOPHEN 650MG/20.3ML UDC GT PRN ×3 (02:54→17:14)
[2021-11-11] MEDS: VALPROATE SODIUM 250MG/5ML UDC GT SCH ×4 (03:12→17:13)
[2021-11-11] MEDS: MIDODRINE HCL 5MG TABLET PEG SCH ×3 (05:35→21:02)
[2021-11-11 06:00] VITALS: BP 119/68
[2021-11-11] MEDS: INSULIN LISPRO 100 UNITS/ML SUBCUT SCH ×3 (06:00→12:00)
[2021-11-11 08:00] VITALS: BP 114/89
[2021-11-11 08:35] LABS: BASOPHILS % 0.3 % (0.0-2.0); EOSINOPHILS % 0.3 % (0.0-5.0); HEMATOCRIT. 24.6 % (42.0-52.0); HEMOGLOBIN. 8.3 g/dL (14.0-18.0); LYMPHOCYTES % 40.6 % (20.0-50.0); MEAN CORPUSCULAR VOLUME 107.5 fL (80.0-94.0); MEAN PLATELET VOLUME 8.9 fl (7.4-10.4); MONOCYTES % 10.1 % (2.0-8.0); NEUTROPHILS % 48.7 % (40.0-76.0); PLATELET 152 x1000/uL (130-400); RED BLOOD CELL COUNT 2.29 mill/uL (4.7-6.1); RED CELL DISTRIBUTION WIDTH 15.1 % (11.6-14.6)
[2021-11-11] MEDS: HYDROCORTISONE 1% CREAM 30GM TOP SCH ×2 (09:00→21:02)
[2021-11-11] MEDS: QUETIAPINE FUMARATE 50MG TABLET PO SCH (09:21)
[2021-11-11] MEDS: ENOXAPARIN 30MG/0.3ML SYR SUBCUT SCH ×2 (09:21→21:05)
[2021-11-11 12:00] VITALS: BP 125/68
[2021-11-11] MEDS: BLOOD SUGAR DIAGNOSTIC STRIP TEST SCH ×2 (12:00)
[2021-11-11] MEDS: INSULIN GLARGINE UD 100 UNITS/ML SYR SUBCUT SCH (13:49)
[2021-11-11 16:00] VITALS: BP 138/69
[2021-11-11 20:00] VITALS: BP 95/63
[2021-11-11] MEDS: BENZTROPINE MESYLATE 1 MG/ML 2ML VIAL IM SCH (21:02)
[2021-11-12 00:14] VITALS: BP 107/56
[2021-11-12] MEDS: ACETAMINOPHEN 650MG/20.3ML UDC GT PRN ×3 (02:01→21:23)
[2021-11-12] MEDS: SODIUM CHLORIDE 0.45% 1,000 ML IV SCH ×2 (02:38→15:22)
[2021-11-12] MEDS: VALPROATE SODIUM 250MG/5ML UDC GT SCH ×5 (02:38→21:24)
[2021-11-12 04:39] VITALS: BP 109/60
[2021-11-12] MEDS: MIDODRINE HCL 5MG TABLET PEG SCH ×3 (05:47→21:21)
[2021-11-12] MEDS: BLOOD SUGAR DIAGNOSTIC STRIP TEST SCH ×5 (05:47→21:25)
[2021-11-12] MEDS: INSULIN LISPRO 100 UNITS/ML SUBCUT SCH ×5 (05:47→21:24)
[2021-11-12 07:39] LABS: HEMOGLOBIN. 8.2 g/dL (14.0-18.0); MEAN CORPUSCULAR HEMOGLOBIN 35.8 pg (28.0-32.0); MEAN CORPUSCULAR VOLUME 105.4 fL (80.0-94.0); MEAN PLATELET VOLUME 7.9 fl (7.4-10.4); PLATELET 160 x1000/uL (130-400); RED BLOOD CELL COUNT 2.28 mill/uL (4.7-6.1); RED CELL DISTRIBUTION WIDTH 14.8 % (11.6-14.6)
[2021-11-12 07:45] LABS: CHLORIDE 105 mEq/L (98-107)
[2021-11-12] MEDS: QUETIAPINE FUMARATE 50MG TABLET PO SCH (08:56)
[2021-11-12] MEDS: ENOXAPARIN 30MG/0.3ML SYR SUBCUT SCH ×2 (08:56→21:23)
[2021-11-12] MEDS: HYDROCORTISONE 1% CREAM 30GM TOP SCH ×2 (08:57→21:24)
[2021-11-12] MEDS: INSULIN GLARGINE UD 100 UNITS/ML SYR SUBCUT SCH (11:41)
[2021-11-12 12:00] VITALS: BP_SYST 112; BP_SYST 133; BP_DIAS 83; BP_DIAS 84
[2021-11-12 16:00] VITALS: BP 102/64
[2021-11-12 20:00] VITALS: BP 95/55
[2021-11-12] MEDS: BENZTROPINE MESYLATE 1 MG/ML 2ML VIAL IM SCH (21:23)
[2021-11-13] VITALS: BP 91/52
[2021-11-13 00:18] LABS: PLATELET ESTIMATE NORMAL
[2021-11-13 04:00] VITALS: BP 133/64
[2021-11-13] MEDS: VALPROATE SODIUM 250MG/5ML UDC GT SCH ×4 (05:28→20:52)
[2021-11-13] MEDS: ACETAMINOPHEN 650MG/20.3ML UDC GT PRN ×3 (05:28→20:51)
[2021-11-13] MEDS: BLOOD SUGAR DIAGNOSTIC STRIP TEST SCH ×4 (05:29→20:52)
[2021-11-13] MEDS: MIDODRINE HCL 5MG TABLET PEG SCH ×3 (05:29→20:51)
[2021-11-13] MEDS: INSULIN LISPRO 100 UNITS/ML SUBCUT SCH ×4 (05:29→20:52)
[2021-11-13] MEDS: SODIUM CHLORIDE 0.45% 1,000 ML IV SCH ×2 (05:30→20:54)
[2021-11-13] MEDS: QUETIAPINE FUMARATE 50MG TABLET PO SCH (08:53)
[2021-11-13] MEDS: ENOXAPARIN 30MG/0.3ML SYR SUBCUT SCH ×2 (08:53→20:51)
[2021-11-13] MEDS: HYDROCORTISONE 1% CREAM 30GM TOP SCH ×2 (08:54→20:52)
[2021-11-13 12:00] VITALS: BP 111/21
[2021-11-13] MEDS ORDERED: SODIUM CHLORIDE 0.9% 1000ML BAG (SEPSIS BOLUS) IV NR (13:45)
[2021-11-13 16:00] VITALS: BP 94/51
[2021-11-13] MEDS: VANCOMYCIN 1000MG/20ML ORAL SOLN PO SCH ×2 (17:00→20:50)
[2021-11-13 20:00] VITALS: BP 102/50
[2021-11-13] MEDS: BENZTROPINE MESYLATE 1 MG/ML 2ML VIAL IM SCH (20:52)
[2021-11-13 21:29] LABS: HEMATOCRIT. 22.5 % (42.0-52.0); HEMOGLOBIN. 7.6 g/dL (14.0-18.0); MEAN CORPUSCULAR HEMOGLOBIN 35.5 pg (28.0-32.0); MEAN PLATELET VOLUME 7.9 fl (7.4-10.4); PLATELET 162 x1000/uL (130-400); RED BLOOD CELL COUNT 2.14 mill/uL (4.7-6.1); RED CELL DISTRIBUTION WIDTH 14.8 % (11.6-14.6)
[2021-11-13 21:33] LABS: CHLORIDE 106 mEq/L (98-107)
[2021-11-13 22:49] LABS: PLATELET ESTIMATE NORMAL
[2021-11-14] VITALS: BP 90/57
[2021-11-14 04:00] VITALS: BP 129/64
[2021-11-14] MEDS: INSULIN LISPRO 100 UNITS/ML SUBCUT SCH ×3 (06:00→17:45)
[2021-11-14] MEDS: BLOOD SUGAR DIAGNOSTIC STRIP TEST SCH ×3 (06:10→17:44)
[2021-11-14] MEDS: VANCOMYCIN 1000MG/20ML ORAL SOLN PO SCH ×4 (06:27→17:46)
[2021-11-14] MEDS: VALPROATE SODIUM 250MG/5ML UDC GT SCH ×3 (06:27→17:45)
[2021-11-14] MEDS: MIDODRINE HCL 5MG TABLET PEG SCH ×3 (06:27→22:23)
[2021-11-14 08:00] VITALS: BP 126/57
[2021-11-14] MEDS: HYDROCORTISONE 1% CREAM 30GM TOP SCH ×2 (09:02→22:50)
[2021-11-14] MEDS: QUETIAPINE FUMARATE 50MG TABLET PO SCH (09:02)
[2021-11-14] MEDS: ENOXAPARIN 30MG/0.3ML SYR SUBCUT SCH ×2 (09:03→22:25)
[2021-11-14] MEDS: ACETAMINOPHEN 650MG/20.3ML UDC GT PRN ×2 (09:07→16:04)
[2021-11-14] MEDS: SODIUM CHLORIDE 0.45% 1,000 ML IV SCH (09:08)
[2021-11-14 11:21] LABS: HEMATOCRIT. 24.1 % (42.0-52.0); HEMOGLOBIN. 7.9 g/dL (14.0-18.0); MEAN CORPUSCULAR VOLUME 106.2 fL (80.0-94.0); MEAN PLATELET VOLUME 7.9 fl (7.4-10.4); PLATELET 193 x1000/uL (130-400); RED BLOOD CELL COUNT 2.27 mill/uL (4.7-6.1); RED CELL DISTRIBUTION WIDTH 15.2 % (11.6-14.6)
[2021-11-14 11:33] LABS: CHLORIDE 106 mEq/L (98-107)
[2021-11-14 12:00] VITALS: BP 99/58
[2021-11-14 16:00] VITALS: BP 104/55
[2021-11-14 20:00] VITALS: BP 94/58
[2021-11-14] MEDS: BENZTROPINE MESYLATE 1 MG/ML 2ML VIAL IM SCH (22:23)
[2021-11-15] VITALS: BP 115/69
[2021-11-15] MEDS: BLOOD SUGAR DIAGNOSTIC STRIP TEST SCH ×4 (00:35→18:00)
[2021-11-15] MEDS: ACETAMINOPHEN 650MG/20.3ML UDC GT PRN ×2 (00:37→11:34)
[2021-11-15] MEDS: VALPROATE SODIUM 250MG/5ML UDC GT SCH ×4 (00:38→18:16)
[2021-11-15] MEDS: VANCOMYCIN 1000MG/20ML ORAL SOLN PO SCH ×4 (01:37→18:16)
[2021-11-15 03:00] VITALS: BP 98/59
[2021-11-15] MEDS: SODIUM CHLORIDE 0.45% 1,000 ML IV SCH (03:28)
[2021-11-15 04:00] VITALS: BP 101/64
[2021-11-15] MEDS: IPRATROPIUM BROMIDE (0.02%) 0.5MG/2.5ML NEB HHN SCH ×3 (04:00→08:00)
[2021-11-15] MEDS: MIDODRINE HCL 5MG TABLET PEG SCH ×3 (05:33→21:46)
[2021-11-15] MEDS: INSULIN LISPRO 100 UNITS/ML SUBCUT SCH ×4 (05:52→18:00)
[2021-11-15 08:36] LABS: CHLORIDE 106 mEq/L (98-107)
[2021-11-15] MEDS: QUETIAPINE FUMARATE 50MG TABLET PO SCH (09:42)
[2021-11-15] MEDS: ENOXAPARIN 30MG/0.3ML SYR SUBCUT SCH ×2 (09:42→21:44)
[2021-11-15] MEDS: HYDROCORTISONE 1% CREAM 30GM TOP SCH ×2 (09:43→21:47)
[2021-11-15 10:17] LABS: HEMATOCRIT. 26.1 % (42.0-52.0); HEMOGLOBIN. 8.8 g/dL (14.0-18.0); MEAN CORPUSCULAR HEMOGLOBIN 35.2 pg (28.0-32.0); RED BLOOD CELL COUNT 2.49 mill/uL (4.7-6.1)
[2021-11-15 12:00] VITALS: BP 117/66
[2021-11-15 14:03] LABS: PLATELET ESTIMATE NORMAL
[2021-11-15 16:00] VITALS: BP 141/86
[2021-11-15 16:03] LABS: PLATELET ESTIMATE NORMAL
[2021-11-15 20:00] VITALS: BP 116/74
[2021-11-15] MEDS: BENZTROPINE MESYLATE 1 MG/ML 2ML VIAL IM SCH (21:46)
[2021-11-16] VITALS: BP 109/66
[2021-11-16] MEDS: VANCOMYCIN 1000MG/20ML ORAL SOLN PO SCH ×4 (00:06→17:32)
[2021-11-16] MEDS: VALPROATE SODIUM 250MG/5ML UDC GT SCH ×4 (00:06→17:31)
[2021-11-16] MEDS: BLOOD SUGAR DIAGNOSTIC STRIP TEST SCH ×4 (00:07→17:28)
[2021-11-16 04:00] VITALS: BP 115/60
[2021-11-16] MEDS: INSULIN LISPRO 100 UNITS/ML SUBCUT SCH ×4 (05:50→17:28)
[2021-11-16] MEDS: MIDODRINE HCL 5MG TABLET PEG SCH ×3 (05:50→21:21)
[2021-11-16] MEDS: SODIUM CHLORIDE 0.45% 1,000 ML IV SCH (05:51)
[2021-11-16 06:45] LABS: CHLORIDE 107 mEq/L (98-107)
[2021-11-16 07:40] LABS: HEMATOCRIT. 23.9 % (42.0-52.0); MEAN CORPUSCULAR HEMOGLOBIN 35.4 pg (28.0-32.0); MEAN CORPUSCULAR VOLUME 105.3 fL (80.0-94.0); MEAN PLATELET VOLUME 8.3 fl (7.4-10.4); PLATELET 248 x1000/uL (130-400); RED BLOOD CELL COUNT 2.27 mill/uL (4.7-6.1); RED CELL DISTRIBUTION WIDTH 15.8 % (11.6-14.6)
[2021-11-16] MEDS: ENOXAPARIN 30MG/0.3ML SYR SUBCUT SCH ×2 (08:40→21:20)
[2021-11-16] MEDS: QUETIAPINE FUMARATE 50MG TABLET PO SCH (08:40)
[2021-11-16 12:00] VITALS: BP 100/55
[2021-11-16] MEDS: ACETAMINOPHEN 650MG/20.3ML UDC GT PRN (13:25)
[2021-11-16 16:00] VITALS: BP 112/71
[2021-11-16 20:00] VITALS: BP 109/64
[2021-11-16] MEDS: BENZTROPINE MESYLATE 1 MG/ML 2ML VIAL IM SCH (21:21)
[2021-11-16 22:04] LABS: PLATELET ESTIMATE NORMAL
[2021-11-17] VITALS (7 sets, daily range): BP systolic 102–140; BP diastolic 56–85
[2021-11-17] MEDS: BLOOD SUGAR DIAGNOSTIC STRIP TEST SCH ×5 (00:35→23:14)
[2021-11-17] MEDS: VALPROATE SODIUM 250MG/5ML UDC GT SCH ×5 (00:35→23:14)
[2021-11-17] MEDS: VANCOMYCIN 1000MG/20ML ORAL SOLN PO SCH ×5 (00:36→23:14)
[2021-11-17] MEDS: ACETAMINOPHEN 650MG/20.3ML UDC GT PRN ×3 (04:42→22:52)
[2021-11-17] MEDS: INSULIN LISPRO 100 UNITS/ML SUBCUT SCH ×5 (06:00→23:14)
[2021-11-17] MEDS: MIDODRINE HCL 5MG TABLET PEG SCH ×3 (06:16→22:52)
[2021-11-17 08:05] LABS: BASOPHILS % 0.7 % (0.0-2.0); EOSINOPHILS % 0.2 % (0.0-5.0); HEMATOCRIT. 23.9 % (42.0-52.0); LYMPHOCYTES % 29.8 % (20.0-50.0); MEAN CORPUSCULAR HEMOGLOBIN 34.7 pg (28.0-32.0); MEAN CORPUSCULAR VOLUME 104.1 fL (80.0-94.0); MEAN PLATELET VOLUME 7.6 fl (7.4-10.4); MONOCYTES % 10.4 % (2.0-8.0); NEUTROPHILS % 58.9 % (40.0-76.0); PLATELET 267 x1000/uL (130-400); RED CELL DISTRIBUTION WIDTH 15.1 % (11.6-14.6)
[2021-11-17 08:40] LABS: CHLORIDE 107 mEq/L (98-107)
[2021-11-17] MEDS: QUETIAPINE FUMARATE 50MG TABLET PO SCH (09:41)
[2021-11-17] MEDS: ENOXAPARIN 30MG/0.3ML SYR SUBCUT SCH ×2 (09:42→22:53)
[2021-11-17] MEDS: SODIUM HYPOCHLORITE 0.125% 473ML SOLUTION TOP SCH (09:42)
[2021-11-17] MEDS: SODIUM CHLORIDE 0.45% 1,000 ML IV SCH (12:54)
[2021-11-17] MEDS ORDERED: IBUPROFEN 400MG TABLET PO NR (14:44)
[2021-11-17] MEDS ORDERED: PIPERACILLIN/TAZOBACTAM 3.375 G in DEXTROSE 5% WATER 50 ML IV SCH (16:30)
[2021-11-17] MEDS: DAPTOMYCIN 650 MG in SODIUM CHLORIDE 0.9% 50 ML IV SCH (18:12)
[2021-11-17 21:28] LABS: CLARITY URINE TURBID (CLEAR); KETONES URINE TRACE (NEGATIVE); LEUKOCYTE ESTERASE URINE 3+ (NEGATIVE); NITRITE URINE POSITIVE (NEGATIVE); OCCULT BLOOD URINE 1+ (NEGATIVE); PH URINE 5.5 (4.5-8.0); PROTEIN URINE 1+ (NEGATIVE); SPECIFIC GRAVITY URINE 1.031 (1.005-1.030); UROBILINOGEN URINE 0.2 E.U./dL (0.2-1.0)
[2021-11-17 21:31] LABS: COLOR URINE DARK YELLOW (YELLOW)
[2021-11-17] MEDS: PIPERACILLIN/TAZOBACTAM 3.375 G in DEXTROSE 5% WATER 50 ML IV SCH (22:52)
[2021-11-17] MEDS: BENZTROPINE MESYLATE 1 MG/ML 2ML VIAL IM SCH (22:53)
[2021-11-18] VITALS: BP 97/61
[2021-11-18 04:00] VITALS: BP 99/64
[2021-11-18] MEDS: ACETAMINOPHEN 650MG/20.3ML UDC GT PRN ×3 (04:28→18:47)
[2021-11-18] MEDS: VALPROATE SODIUM 250MG/5ML UDC GT SCH ×4 (05:51→23:31)
[2021-11-18] MEDS: PIPERACILLIN/TAZOBACTAM 3.375 G in DEXTROSE 5% WATER 50 ML IV SCH ×3 (05:51→21:24)
[2021-11-18] MEDS: VANCOMYCIN 1000MG/20ML ORAL SOLN PO SCH ×2 (05:52→12:20)
[2021-11-18] MEDS: MIDODRINE HCL 5MG TABLET PEG SCH ×3 (05:54→21:25)
[2021-11-18] MEDS: INSULIN LISPRO 100 UNITS/ML SUBCUT SCH ×4 (05:55→23:31)
[2021-11-18] MEDS: BLOOD SUGAR DIAGNOSTIC STRIP TEST SCH ×4 (05:55→23:31)
[2021-11-18] MEDS: SODIUM CHLORIDE 0.45% 1,000 ML IV SCH ×2 (06:16→18:48)
[2021-11-18 08:00] VITALS: BP 114/72
[2021-11-18 08:16] LABS: HEMATOCRIT. 22.7 % (42.0-52.0); HEMOGLOBIN. 7.7 g/dL (14.0-18.0); MEAN CORPUSCULAR HEMOGLOBIN 35.5 pg (28.0-32.0); MEAN CORPUSCULAR VOLUME 104.1 fL (80.0-94.0); MEAN PLATELET VOLUME 7.8 fl (7.4-10.4); PLATELET 269 x1000/uL (130-400); RED BLOOD CELL COUNT 2.18 mill/uL (4.7-6.1); RED CELL DISTRIBUTION WIDTH 15.4 % (11.6-14.6)
[2021-11-18 08:31] LABS: CHLORIDE 108 mEq/L (98-107)
[2021-11-18 08:43] LABS: CREATINE KINASE 54 IU/L (39-308)
[2021-11-18] MEDS: QUETIAPINE FUMARATE 50MG TABLET PO SCH (09:04)
[2021-11-18] MEDS: SODIUM HYPOCHLORITE 0.125% 473ML SOLUTION TOP SCH (09:04)
[2021-11-18] MEDS: ENOXAPARIN 30MG/0.3ML SYR SUBCUT SCH ×2 (09:04→21:25)
[2021-11-18 12:00] VITALS: BP 127/69
[2021-11-18] MEDS ORDERED: DIATR MEGLU/DIATRIZOATE SOLN 30ML PO NR (15:30)
[2021-11-18 16:00] VITALS: BP 112/59
[2021-11-18 18:28] LABS: PLATELET ESTIMATE NORMAL
[2021-11-18] MEDS: DAPTOMYCIN 650 MG in SODIUM CHLORIDE 0.9% 50 ML IV SCH (18:47)
[2021-11-18 20:00] VITALS: BP 100/53
[2021-11-18] MEDS: BENZTROPINE MESYLATE 1 MG/ML 2ML VIAL IM SCH (21:26)
[2021-11-19 00:14] VITALS: BP 97/61
[2021-11-19] MEDS: ACETAMINOPHEN 650MG/20.3ML UDC GT PRN ×3 (00:52→16:21)
[2021-11-19] MEDS: SODIUM CHLORIDE 0.45% 1,000 ML IV SCH ×2 (03:18→17:20)
[2021-11-19 04:00] VITALS: BP 110/67
[2021-11-19] MEDS: PIPERACILLIN/TAZOBACTAM 3.375 G in DEXTROSE 5% WATER 50 ML IV SCH ×3 (05:33→20:21)
[2021-11-19] MEDS: VALPROATE SODIUM 250MG/5ML UDC GT SCH ×3 (05:33→18:44)
[2021-11-19] MEDS: MIDODRINE HCL 5MG TABLET PEG SCH ×3 (05:47→20:22)
[2021-11-19] MEDS: BLOOD SUGAR DIAGNOSTIC STRIP TEST SCH ×3 (05:47→17:21)
[2021-11-19] MEDS: INSULIN LISPRO 100 UNITS/ML SUBCUT SCH ×3 (05:48→17:21)
[2021-11-19 08:00] VITALS: BP 140/68
[2021-11-19] MEDS: QUETIAPINE FUMARATE 50MG TABLET PO SCH (08:41)
[2021-11-19] MEDS: SODIUM HYPOCHLORITE 0.125% 473ML SOLUTION TOP SCH (08:41)
[2021-11-19] MEDS: ENOXAPARIN 30MG/0.3ML SYR SUBCUT SCH ×2 (08:41→20:23)
[2021-11-19] MEDS ORDERED: DIATR MEGLU/DIATRIZOATE SOLN 30ML PO NR (10:00)
[2021-11-19] MEDS ORDERED: LOPERAMIDE HCL 2MG CAPSULE PO PRN (10:15)
[2021-11-19 12:00] VITALS: BP 104/67
[2021-11-19 12:19] LABS: BASOPHILS % 0.5 % (0.0-2.0); EOSINOPHILS % 2.8 % (0.0-5.0); HEMATOCRIT. 21.2 % (42.0-52.0); HEMOGLOBIN. 7.1 g/dL (14.0-18.0); MEAN CORPUSCULAR HEMOGLOBIN 35.1 pg (28.0-32.0); MEAN CORPUSCULAR VOLUME 104.4 fL (80.0-94.0); MEAN PLATELET VOLUME 8.4 fl (7.4-10.4); MONOCYTES % 10.7 % (2.0-8.0); PLATELET 305 x1000/uL (130-400); RED BLOOD CELL COUNT 2.03 mill/uL (4.7-6.1); RED CELL DISTRIBUTION WIDTH 15.3 % (11.6-14.6)
[2021-11-19 12:21] LABS: CHLORIDE 108 mEq/L (98-107)
[2021-11-19] MEDS: IBUPROFEN 100MG/5ML UDC PO PRN (15:28)
[2021-11-19 16:00] VITALS: BP 98/50
[2021-11-19] MEDS: DAPTOMYCIN 650 MG in SODIUM CHLORIDE 0.9% 50 ML IV SCH (18:43)
[2021-11-19 20:00] VITALS: BP 87/54
[2021-11-19] MEDS: BENZTROPINE MESYLATE 1 MG/ML 2ML VIAL IM SCH (20:23)
[2021-11-20] VITALS (8 sets, daily range): BP systolic 99–121; BP diastolic 56–69
[2021-11-20] MEDS: BLOOD SUGAR DIAGNOSTIC STRIP TEST SCH ×4 (00:18→18:20)
[2021-11-20] MEDS: VALPROATE SODIUM 250MG/5ML UDC GT SCH ×4 (00:18→18:39)
[2021-11-20] MEDS: PIPERACILLIN/TAZOBACTAM 3.375 G in DEXTROSE 5% WATER 50 ML IV SCH ×3 (05:37→21:53)
[2021-11-20] MEDS: SODIUM CHLORIDE 0.45% 1,000 ML IV SCH ×2 (05:38→20:00)
[2021-11-20] MEDS: MIDODRINE HCL 5MG TABLET PEG SCH ×3 (05:39→21:53)
[2021-11-20] MEDS: INSULIN LISPRO 100 UNITS/ML SUBCUT SCH ×4 (06:00→18:00)
[2021-11-20] MEDS: IBUPROFEN 100MG/5ML UDC PO PRN (07:13)
[2021-11-20] MEDS: ACETAMINOPHEN 650MG/20.3ML UDC GT PRN ×3 (08:44→21:53)
[2021-11-20] MEDS: ENOXAPARIN 30MG/0.3ML SYR SUBCUT SCH ×2 (08:44→21:53)
[2021-11-20] MEDS: SODIUM HYPOCHLORITE 0.125% 473ML SOLUTION TOP SCH (08:45)
[2021-11-20] MEDS: QUETIAPINE FUMARATE 50MG TABLET PO SCH (08:45)
[2021-11-20] MEDS ORDERED: SODIUM CHLORIDE 0.9% 500 ML IV NR (10:15)
[2021-11-20 11:00] LABS: CHLORIDE 105 mEq/L (98-107)
[2021-11-20 11:07] LABS: MEAN CORPUSCULAR HEMOGLOBIN 36.1 pg (28.0-32.0); MEAN CORPUSCULAR VOLUME 107.3 fL (80.0-94.0); MEAN PLATELET VOLUME 8.2 fl (7.4-10.4); PLATELET 314 x1000/uL (130-400); RED BLOOD CELL COUNT 1.81 mill/uL (4.7-6.1); RED CELL DISTRIBUTION WIDTH 15.7 % (11.6-14.6)
[2021-11-20 11:43] LABS: HEMATOCRIT. 19.4 % (42.0-52.0); HEMOGLOBIN. 6.5 g/dL (14.0-18.0)
[2021-11-20 14:31] LABS: PLATELET ESTIMATE NORMAL
[2021-11-20] MEDS: IBUPROFEN 200MG TABLET PO PRN (15:12)
[2021-11-20] MEDS: BENZTROPINE MESYLATE 1 MG/ML 2ML VIAL IM SCH (21:54)
[2021-11-21] VITALS: BP_SYST 117; BP_SYST 127; BP_DIAS 72; BP_DIAS 77
[2021-11-21] MEDS: VALPROATE SODIUM 250MG/5ML UDC GT SCH ×4 (01:19→18:43)
[2021-11-21 04:00] VITALS: BP 116/76
[2021-11-21] MEDS: INSULIN LISPRO 100 UNITS/ML SUBCUT SCH ×4 (06:00→17:53)
[2021-11-21] MEDS: BLOOD SUGAR DIAGNOSTIC STRIP TEST SCH ×4 (06:32→17:54)
[2021-11-21] MEDS: MIDODRINE HCL 5MG TABLET PEG SCH ×4 (06:37→20:52)
[2021-11-21] MEDS: PIPERACILLIN/TAZOBACTAM 3.375 G in DEXTROSE 5% WATER 50 ML IV SCH ×3 (06:37→20:54)
[2021-11-21 07:25] LABS: HEMATOCRIT. 23.3 % (42.0-52.0); HEMOGLOBIN. 8.1 g/dL (14.0-18.0); MEAN CORPUSCULAR HEMOGLOBIN 35.9 pg (28.0-32.0); MEAN CORPUSCULAR VOLUME 103.6 fL (80.0-94.0); MEAN PLATELET VOLUME 8.3 fl (7.4-10.4); PLATELET 359 x1000/uL (130-400); RED BLOOD CELL COUNT 2.25 mill/uL (4.7-6.1); RED CELL DISTRIBUTION WIDTH 20.6 % (11.6-14.6)
[2021-11-21 07:36] LABS: CHLORIDE 110 mEq/L (98-107)
[2021-11-21 07:51] LABS: PHOSPHORUS 3.2 mg/dL (2.5-4.9)
[2021-11-21 07:54] LABS: CREATINE KINASE 46 IU/L (39-308)
[2021-11-21] MEDS: ENOXAPARIN 30MG/0.3ML SYR SUBCUT SCH ×2 (10:48→20:52)
[2021-11-21] MEDS: SODIUM HYPOCHLORITE 0.125% 473ML SOLUTION TOP SCH (10:51)
[2021-11-21] MEDS: SODIUM CHLORIDE 0.45% 1,000 ML IV SCH ×2 (10:51→20:54)
[2021-11-21 10:52] LABS: PLATELET ESTIMATE NORMAL
[2021-11-21] MEDS: QUETIAPINE FUMARATE 50MG TABLET PO SCH (10:56)
[2021-11-21 12:00] VITALS: BP 138/76
[2021-11-21] MEDS: METHYLPREDNISOLONE SOD SUCC 125 MG/2 ML VIAL IV SCH ×2 (14:43→20:51)
[2021-11-21] MEDS: ACETAMINOPHEN 650MG/20.3ML UDC GT PRN (14:48)
[2021-11-21 16:00] VITALS: BP 118/70
[2021-11-21] MEDS: DAPTOMYCIN 650 MG in SODIUM CHLORIDE 0.9% 50 ML IV SCH ×2 (17:00→18:43)
[2021-11-21 20:00] VITALS: BP 117/75
[2021-11-21] MEDS: BENZTROPINE MESYLATE 1 MG/ML 2ML VIAL IM SCH (20:52)
[2021-11-21 21:57] VITALS: BP 117/75
[2021-11-22] VITALS: BP 134/78
[2021-11-22] MEDS: BLOOD SUGAR DIAGNOSTIC STRIP TEST SCH ×4 (00:26→17:02)
[2021-11-22] MEDS: VALPROATE SODIUM 250MG/5ML UDC GT SCH ×4 (00:40→17:01)
[2021-11-22] MEDS: VANCOMYCIN HCL 1 GM/VIAL PO SCH ×4 (00:41→17:01)
[2021-11-22] MEDS: INSULIN LISPRO 100 UNITS/ML SUBCUT SCH ×3 (00:41→17:03)
[2021-11-22 04:00] VITALS: BP 138/71
[2021-11-22] MEDS: METHYLPREDNISOLONE SOD SUCC 125 MG/2 ML VIAL IV SCH ×3 (05:40→22:31)
[2021-11-22] MEDS: PIPERACILLIN/TAZOBACTAM 3.375 G in DEXTROSE 5% WATER 50 ML IV SCH ×2 (05:40→13:22)
[2021-11-22] MEDS: MIDODRINE HCL 5MG TABLET PEG SCH ×3 (05:41→22:32)
[2021-11-22 07:55] LABS: CHLORIDE 109 mEq/L (98-107); HEMATOCRIT. 25.8 % (42.0-52.0); HEMOGLOBIN. 9.1 g/dL (14.0-18.0); MEAN CORPUSCULAR HEMOGLOBIN 35.2 pg (28.0-32.0); MEAN CORPUSCULAR VOLUME 100.4 fL (80.0-94.0); MEAN PLATELET VOLUME 8.4 fl (7.4-10.4); PLATELET 444 x1000/uL (130-400); RED BLOOD CELL COUNT 2.57 mill/uL (4.7-6.1); RED CELL DISTRIBUTION WIDTH 20.6 % (11.6-14.6)
[2021-11-22 08:00] VITALS: BP 158/75
[2021-11-22] MEDS: SODIUM HYPOCHLORITE 0.125% 473ML SOLUTION TOP SCH (09:03)
[2021-11-22] MEDS: QUETIAPINE FUMARATE 50MG TABLET PO SCH (09:04)
[2021-11-22] MEDS: ENOXAPARIN 30MG/0.3ML SYR SUBCUT SCH ×2 (09:05→22:32)
[2021-11-22 11:24] LABS: PLATELET ESTIMATE INCREASED
[2021-11-22 12:00] VITALS: BP 124/76
[2021-11-22] MEDS: SODIUM CHLORIDE 0.45% 1,000 ML IV SCH (12:12)
[2021-11-22 16:00] VITALS: BP 128/75
[2021-11-22] MEDS: DAPTOMYCIN 650 MG in SODIUM CHLORIDE 0.9% 50 ML IV SCH (16:01)
[2021-11-22 20:00] VITALS: BP 126/80
[2021-11-22] MEDS: BENZTROPINE MESYLATE 1 MG/ML 2ML VIAL IM SCH (22:31)
[2021-11-23] VITALS: BP 141/87
[2021-11-23] MEDS: VALPROATE SODIUM 250MG/5ML UDC GT SCH ×4 (01:17→17:14)
[2021-11-23] MEDS: ACETAMINOPHEN 650MG/20.3ML UDC GT PRN ×2 (01:17→17:14)
[2021-11-23] MEDS: INSULIN LISPRO 100 UNITS/ML SUBCUT SCH ×4 (01:18→17:18)
[2021-11-23] MEDS: VANCOMYCIN 1000MG/20ML ORAL SOLN PO SCH ×4 (01:20→17:14)
[2021-11-23 04:00] VITALS: BP 137/88
[2021-11-23] MEDS: MIDODRINE HCL 5MG TABLET PEG SCH ×3 (05:27→21:53)
[2021-11-23] MEDS: METHYLPREDNISOLONE SOD SUCC 125 MG/2 ML VIAL IV SCH ×3 (05:27→21:53)
[2021-11-23] MEDS: BLOOD SUGAR DIAGNOSTIC STRIP TEST SCH ×4 (05:28→16:21)
[2021-11-23 06:42] LABS: HEMATOCRIT. 24.3 % (42.0-52.0); HEMOGLOBIN. 8.7 g/dL (14.0-18.0); MEAN CORPUSCULAR HEMOGLOBIN 36.9 pg (28.0-32.0); MEAN CORPUSCULAR VOLUME 102.6 fL (80.0-94.0); MEAN PLATELET VOLUME 8.7 fl (7.4-10.4); PLATELET 515 x1000/uL (130-400); RED BLOOD CELL COUNT 2.37 mill/uL (4.7-6.1); RED CELL DISTRIBUTION WIDTH 19.9 % (11.6-14.6)
[2021-11-23 07:33] LABS: CHLORIDE 112 mEq/L (98-107)
[2021-11-23 08:00] VITALS: BP 155/85
[2021-11-23] MEDS: ENOXAPARIN 30MG/0.3ML SYR SUBCUT SCH ×2 (10:29→21:53)
[2021-11-23] MEDS: QUETIAPINE FUMARATE 50MG TABLET PO SCH (10:29)
[2021-11-23] MEDS: SODIUM HYPOCHLORITE 0.125% 473ML SOLUTION TOP SCH (10:30)
[2021-11-23 12:00] VITALS: BP 138/79
[2021-11-23 15:58] LABS: PLATELET ESTIMATE DECREASED
[2021-11-23 16:00] VITALS: BP 153/85
[2021-11-23 20:00] VITALS: BP 137/78
[2021-11-23] MEDS: BENZTROPINE MESYLATE 1 MG/ML 2ML VIAL IM SCH (21:53)
[2021-11-24] VITALS: BP 155/84
[2021-11-24] MEDS: VALPROATE SODIUM 250MG/5ML UDC GT SCH ×5 (00:43→23:48)
[2021-11-24] MEDS: VANCOMYCIN 1000MG/20ML ORAL SOLN PO SCH ×5 (00:44→23:47)
[2021-11-24] MEDS: INSULIN LISPRO 100 UNITS/ML SUBCUT SCH ×5 (00:44→23:47)
[2021-11-24] MEDS: BLOOD SUGAR DIAGNOSTIC STRIP TEST SCH ×5 (00:44→23:47)
[2021-11-24] MEDS: ACETAMINOPHEN 650MG/20.3ML UDC GT PRN (00:44)
[2021-11-24 04:00] VITALS: BP 141/73
[2021-11-24] MEDS: METHYLPREDNISOLONE SOD SUCC 125 MG/2 ML VIAL IV SCH ×3 (05:47→21:45)
[2021-11-24] MEDS: MIDODRINE HCL 5MG TABLET PEG SCH ×3 (05:48→21:46)
[2021-11-24 08:00] VITALS: BP 153/70
[2021-11-24 08:39] LABS: HEMOGLOBIN. 8.4 g/dL (14.0-18.0); MEAN CORPUSCULAR HEMOGLOBIN 33.7 pg (28.0-32.0); MEAN CORPUSCULAR VOLUME 100.7 fL (80.0-94.0); MEAN PLATELET VOLUME 8.4 fl (7.4-10.4); PLATELET 561 x1000/uL (130-400); RED BLOOD CELL COUNT 2.48 mill/uL (4.7-6.1); RED CELL DISTRIBUTION WIDTH 20.8 % (11.6-14.6)
[2021-11-24] MEDS: ENOXAPARIN 30MG/0.3ML SYR SUBCUT SCH ×2 (09:36→21:46)
[2021-11-24] MEDS: QUETIAPINE FUMARATE 50MG TABLET PO SCH (09:36)
[2021-11-24] MEDS: SODIUM HYPOCHLORITE 0.125% 473ML SOLUTION TOP SCH ×2 (09:37→19:50)
[2021-11-24 12:00] VITALS: BP 151/78
[2021-11-24 12:25] LABS: CHLORIDE 116 mEq/L (98-107)
[2021-11-24] MEDS ORDERED: IPRATROPIUM/ALBUTEROL 0.5-3(2.5)MG/3ML NEB HHN PRN (13:30)
[2021-11-24 16:00] VITALS: BP 152/78
[2021-11-24] MEDS: PIPERACILLIN/TAZOBACTAM 3.375 G in DEXTROSE 5% WATER 50 ML IV SCH ×2 (19:50→23:47)
[2021-11-24] MEDS: DAPTOMYCIN 650 MG in SODIUM CHLORIDE 0.9% 50 ML IV SCH (19:50)
[2021-11-24 20:00] VITALS: BP 137/76
[2021-11-24 20:16] LABS: NUCLEATED RED BLOOD CELLS 7 /100 WBC; PLATELET ESTIMATE INCREASED
[2021-11-25] VITALS: BP 152/68
[2021-11-25 04:00] VITALS: BP 159/89
[2021-11-25] MEDS: MIDODRINE HCL 5MG TABLET PEG SCH ×3 (04:58→21:23)
[2021-11-25] MEDS: BLOOD SUGAR DIAGNOSTIC STRIP TEST SCH ×3 (05:17→18:46)
[2021-11-25 05:19] LABS: HEMATOCRIT. 25.8 % (42.0-52.0); MEAN CORPUSCULAR HEMOGLOBIN 36.8 pg (28.0-32.0); MEAN CORPUSCULAR VOLUME 105.5 fL (80.0-94.0); MEAN PLATELET VOLUME 8.5 fl (7.4-10.4); PLATELET 555 x1000/uL (130-400); RED BLOOD CELL COUNT 2.45 mill/uL (4.7-6.1)
[2021-11-25] MEDS: PIPERACILLIN/TAZOBACTAM 3.375 G in DEXTROSE 5% WATER 50 ML IV SCH ×3 (05:24→21:23)
[2021-11-25] MEDS: VALPROATE SODIUM 250MG/5ML UDC GT SCH ×2 (05:24→11:35)
[2021-11-25] MEDS: METHYLPREDNISOLONE SOD SUCC 125 MG/2 ML VIAL IV SCH ×3 (05:24→21:23)
[2021-11-25] MEDS: VANCOMYCIN 1000MG/20ML ORAL SOLN PO SCH ×3 (05:26→19:01)
[2021-11-25] MEDS: INSULIN LISPRO 100 UNITS/ML SUBCUT SCH ×3 (05:26→18:00)
[2021-11-25 07:47] LABS: CHLORIDE 116 mEq/L (98-107)
[2021-11-25 08:16] LABS: CREATINE KINASE 18 IU/L (39-308)
[2021-11-25] MEDS: ENOXAPARIN 30MG/0.3ML SYR SUBCUT SCH (11:32)
[2021-11-25 17:30] LABS: NUCLEATED RED BLOOD CELLS 12 /100 WBC; PLATELET ESTIMATE INCREASED
[2021-11-25] MEDS: DAPTOMYCIN 650 MG in SODIUM CHLORIDE 0.9% 50 ML IV SCH (19:00)
[2021-11-25 20:00] VITALS: BP 145/79
[2021-11-26] VITALS: BP 152/82
[2021-11-26] MEDS: VANCOMYCIN 1000MG/20ML ORAL SOLN PO SCH ×5 (01:09→23:29)
[2021-11-26] MEDS: INSULIN LISPRO 100 UNITS/ML SUBCUT SCH ×5 (01:20→23:29)
[2021-11-26 04:00] VITALS: BP 153/63
[2021-11-26] MEDS: MIDODRINE HCL 5MG TABLET PEG SCH ×3 (05:19→21:51)
[2021-11-26] MEDS: PIPERACILLIN/TAZOBACTAM 3.375 G in DEXTROSE 5% WATER 50 ML IV SCH ×3 (05:51→21:56)
[2021-11-26] MEDS: METHYLPREDNISOLONE SOD SUCC 125 MG/2 ML VIAL IV SCH ×3 (05:51→21:56)
[2021-11-26] MEDS: BLOOD SUGAR DIAGNOSTIC STRIP TEST SCH ×5 (06:07→23:30)
[2021-11-26 06:43] LABS: CHLORIDE 117 mEq/L (98-107)
[2021-11-26 07:26] LABS: HEMOGLOBIN. 9.6 g/dL (14.0-18.0); MEAN CORPUSCULAR HEMOGLOBIN 38.7 pg (28.0-32.0); MEAN CORPUSCULAR VOLUME 109.6 fL (80.0-94.0); MEAN PLATELET VOLUME 8.4 fl (7.4-10.4); PLATELET 535 x1000/uL (130-400); RED BLOOD CELL COUNT 2.47 mill/uL (4.7-6.1); RED CELL DISTRIBUTION WIDTH 19.5 % (11.6-14.6)
[2021-11-26 08:00] VITALS: BP 153/64
[2021-11-26] MEDS: SODIUM HYPOCHLORITE 0.125% 473ML SOLUTION TOP SCH (08:38)
[2021-11-26 09:31] LABS: NUCLEATED RED BLOOD CELLS 6 /100 WBC
[2021-11-26 09:32] LABS: PLATELET ESTIMATE INCREASED
[2021-11-26 12:00] VITALS: BP 157/83
[2021-11-26] MEDS ORDERED: LIDOCAINE HCL 1% 20ML VIAL (Pyxis) INJ ONE (14:27)
[2021-11-26] MEDS ORDERED: POLYMYXIN B SULFATE 500000 UNITS/VIAL ONE (14:27)
[2021-11-26] MEDS ORDERED: BUPIVACAINE HCL/PF 0.5% (5MG/ML) 10ML ONE (14:27)
[2021-11-26 15:00] LABS: INR 1.2; PARTIAL THROMBOPLASTIN TIME 21.6 sec (23.4-31.0); PROTHROMBIN TIME 12.3 sec (9.6-11.0)
[2021-11-26 16:00] VITALS: BP 158/84
[2021-11-26] MEDS ORDERED: GLYCOPYRROLATE 0.2 MG/ML 2ML VIAL ONE (16:58)
[2021-11-26] MEDS ORDERED: CALCIUM CHLORIDE 1GM/10ML SYR IV ONE (17:20)
[2021-11-26] MEDS ORDERED: LABETALOL 5MG/ML SYR 20 MG/4 ML SYRINGE IV PRN (18:30)
[2021-11-26] MEDS ORDERED: MEPERIDINE HCL/PF 25MG/ML CPJ IV PRN (18:30)
[2021-11-26] MEDS ORDERED: ONDANSETRON HCL 4MG/2ML INJ IV PRN (18:30)
[2021-11-26 20:00] VITALS: BP 140/91
[2021-11-26] MEDS: DAPTOMYCIN 650 MG in SODIUM CHLORIDE 0.9% 50 ML IV SCH (20:52)
[2021-11-27] VITALS: BP 138/86
[2021-11-27 04:00] VITALS: BP 150/84
[2021-11-27] MEDS: MIDODRINE HCL 5MG TABLET PEG SCH ×3 (05:25→22:39)
[2021-11-27] MEDS: METHYLPREDNISOLONE SOD SUCC 125 MG/2 ML VIAL IV SCH ×3 (05:49→22:39)
[2021-11-27] MEDS: BLOOD SUGAR DIAGNOSTIC STRIP TEST SCH ×3 (05:49→17:09)
[2021-11-27] MEDS: PIPERACILLIN/TAZOBACTAM 3.375 G in DEXTROSE 5% WATER 50 ML IV SCH ×2 (05:49→15:26)
[2021-11-27] MEDS: INSULIN LISPRO 100 UNITS/ML SUBCUT SCH ×3 (06:29→18:05)
[2021-11-27] MEDS: VANCOMYCIN 1000MG/20ML ORAL SOLN PO SCH ×3 (07:47→18:05)
[2021-11-27 08:00] VITALS: BP 161/88
[2021-11-27 08:07] LABS: CHLORIDE 116 mEq/L (98-107)
[2021-11-27 08:15] LABS: PHOSPHORUS 4.2 mg/dL (2.5-4.9)
[2021-11-27 08:41] LABS: BASOPHILS % 0.8 % (0.0-2.0); HEMATOCRIT. 31.1 % (42.0-52.0); HEMOGLOBIN. 10.4 g/dL (14.0-18.0); LYMPHOCYTES % 12.4 % (20.0-50.0); MEAN CORPUSCULAR HEMOGLOBIN 35.7 pg (28.0-32.0); MEAN CORPUSCULAR VOLUME 106.9 fL (80.0-94.0); MEAN PLATELET VOLUME 8.8 fl (7.4-10.4); MONOCYTES % 5.3 % (2.0-8.0); NEUTROPHILS % 81.5 % (40.0-76.0); PLATELET 480 x1000/uL (130-400); RED BLOOD CELL COUNT 2.91 mill/uL (4.7-6.1); RED CELL DISTRIBUTION WIDTH 20.7 % (11.6-14.6)
[2021-11-27] MEDS: DEXTROSE 5% WATER 1,000 ML IV SCH (11:44)
[2021-11-27 12:00] VITALS: BP 122/85
[2021-11-27] MEDS: SODIUM HYPOCHLORITE 0.125% 473ML SOLUTION TOP SCH (15:24)
[2021-11-27 16:00] VITALS: BP 127/87
[2021-11-27 20:21] VITALS: BP 132/88
[2021-11-28 00:20] VITALS: BP 138/77
[2021-11-28] MEDS: PIPERACILLIN/TAZOBACTAM 3.375 G in DEXTROSE 5% WATER 50 ML IV SCH ×4 (00:29→22:43)
[2021-11-28] MEDS: VANCOMYCIN 1000MG/20ML ORAL SOLN PO SCH (00:59)
[2021-11-28] MEDS: INSULIN LISPRO 100 UNITS/ML SUBCUT SCH ×3 (01:09→14:35)
[2021-11-28 04:00] VITALS: BP 126/71
[2021-11-28] MEDS: MIDODRINE HCL 5MG TABLET PEG SCH ×3 (06:17→22:45)
[2021-11-28] MEDS: METHYLPREDNISOLONE SOD SUCC 125 MG/2 ML VIAL IV SCH ×3 (06:17→22:44)
[2021-11-28 07:46] LABS: BASOPHILS % 0.1 % (0.0-2.0); HEMATOCRIT. 34.8 % (42.0-52.0); HEMOGLOBIN. 11.3 g/dL (14.0-18.0); MEAN CORPUSCULAR HEMOGLOBIN 33.9 pg (28.0-32.0); MEAN CORPUSCULAR VOLUME 104.2 fL (80.0-94.0); MEAN PLATELET VOLUME 8.8 fl (7.4-10.4); MONOCYTES % 3.8 % (2.0-8.0); NEUTROPHILS % 87.1 % (40.0-76.0); PLATELET 415 x1000/uL (130-400); RED BLOOD CELL COUNT 3.34 mill/uL (4.7-6.1); RED CELL DISTRIBUTION WIDTH 21.2 % (11.6-14.6)
[2021-11-28 08:00] VITALS: BP 150/89
[2021-11-28 08:05] LABS: CHLORIDE 119 mEq/L (98-107)
[2021-11-28] MEDS: SODIUM HYPOCHLORITE 0.125% 473ML SOLUTION TOP SCH (10:22)
[2021-11-28] MEDS: ENOXAPARIN 30MG/0.3ML SYR SUBCUT SCH ×2 (10:23→22:46)
[2021-11-28 12:07] VITALS: BP 147/89
[2021-11-28 16:00] VITALS: BP 143/90
[2021-11-28] MEDS: DAPTOMYCIN 650 MG in SODIUM CHLORIDE 0.9% 50 ML IV SCH (17:58)
[2021-11-28] MEDS: DEXTROSE 5% WATER 1,000 ML IV SCH (17:58)
[2021-11-28 20:00] VITALS: BP 145/92
[2021-11-29] VITALS (9 sets, daily range): BP systolic 81–170; BP diastolic 56–109
[2021-11-29] MEDS: METHYLPREDNISOLONE SOD SUCC 125 MG/2 ML VIAL IV SCH (05:27)
[2021-11-29] MEDS: PIPERACILLIN/TAZOBACTAM 3.375 G in DEXTROSE 5% WATER 50 ML IV SCH ×3 (05:31→22:42)
[2021-11-29] MEDS: MIDODRINE HCL 5MG TABLET PEG SCH ×3 (05:32→22:42)
[2021-11-29 07:45] LABS: HEMATOCRIT. 30.5 % (42.0-52.0); HEMOGLOBIN. 10.1 g/dL (14.0-18.0); MEAN CORPUSCULAR HEMOGLOBIN 35.4 pg (28.0-32.0); MEAN CORPUSCULAR VOLUME 106.4 fL (80.0-94.0); MEAN PLATELET VOLUME 9.9 fl (7.4-10.4); PLATELET 312 x1000/uL (130-400); RED BLOOD CELL COUNT 2.86 mill/uL (4.7-6.1); RED CELL DISTRIBUTION WIDTH 22.5 % (11.6-14.6)
[2021-11-29 07:46] LABS: CHLORIDE 119 mEq/L (98-107)
[2021-11-29 07:53] LABS: PHOSPHORUS 3.1 mg/dL (2.5-4.9)
[2021-11-29] MEDS: ENOXAPARIN 30MG/0.3ML SYR SUBCUT SCH ×2 (10:10→21:00)
[2021-11-29] MEDS: SODIUM HYPOCHLORITE 0.125% 473ML SOLUTION TOP SCH (10:10)
[2021-11-29] MEDS ORDERED: SODIUM CHLORIDE 0.9% 500 ML IV SCH (11:15)
[2021-11-29] MEDS ORDERED: SODIUM CHLORIDE 0.45% 1,000 ML IV ONE (12:00)
[2021-11-29 12:45] LABS: INR 1.2; PARTIAL THROMBOPLASTIN TIME 22.3 sec (23.4-31.0); PROTHROMBIN TIME 12.6 sec (9.6-11.0)
[2021-11-29] MEDS: DILTIAZEM HCL 5MG/ML 5ML VIAL IV PRN ×2 (13:29→18:19)
[2021-11-29 15:43] LABS: PLATELET ESTIMATE NORMAL
[2021-11-29 16:09] LABS: HEMATOCRIT 33.6 % (42.0-52.0); HEMOGLOBIN 9.8 g/dL (14.0-18.0)
[2021-11-29] MEDS: DAPTOMYCIN 650 MG in SODIUM CHLORIDE 0.9% 50 ML IV SCH (18:12)
[2021-11-29] MEDS: SODIUM CHLORIDE 0.45% 1000ML IV SCH (19:40)
[2021-11-29] MEDS ORDERED: DEXTROSE 50% WATER 50ML SYRINGE IV NR (22:30)
[2021-11-29] MEDS ORDERED: SODIUM CHLORIDE 0.9% 500 ML IV NR (22:30)
[2021-11-29] MEDS ORDERED: SODIUM POLYSTYRENE SULFONATE 15 G/60 ML BOT GT NR (22:30)
[2021-11-29] MEDS ORDERED: INSULIN REGULAR (HUMULIN R) 300UNITS/3ML VIAL IV NR (23:00)
[2021-11-29] MEDS ORDERED: DEXTROSE 50% WATER 50ML SYRINGE IV PRN (23:15)
[2021-11-30] VITALS (7 sets, daily range): BP systolic 92–121; BP diastolic 53–80
[2021-11-30] MEDS: SODIUM CHLORIDE 0.45% 1000ML IV SCH ×3 (03:50→22:22)
[2021-11-30] MEDS: MIDODRINE HCL 5MG TABLET PEG SCH ×3 (06:01→22:23)
[2021-11-30] MEDS: BLOOD SUGAR DIAGNOSTIC STRIP TEST SCH ×4 (06:02→21:00)
[2021-11-30] MEDS: PIPERACILLIN/TAZOBACTAM 3.375 G in DEXTROSE 5% WATER 50 ML IV SCH ×3 (06:02→22:21)
[2021-11-30 06:07] LABS: HEMATOCRIT 27.7 % (42.0-52.0); HEMOGLOBIN 9.2 g/dL (14.0-18.0); MEAN CORPUSCULAR HEMOGLOBIN 34.7 pg (28.0-32.0); MEAN CORPUSCULAR VOLUME 104.9 fL (80.0-94.0); PLATELET 238 x1000/uL (130-400); RED BLOOD CELL COUNT 2.64 mill/uL (4.7-6.1); RED CELL DISTRIBUTION WIDTH 23.4 % (11.6-14.6)
[2021-11-30] MEDS: INSULIN LISPRO 100 UNITS/ML SUBCUT SCH ×4 (06:25→22:24)
[2021-11-30] MEDS: SODIUM HYPOCHLORITE 0.125% 473ML SOLUTION TOP SCH (08:11)
[2021-11-30] MEDS: IBUPROFEN 200MG TABLET PO PRN (08:11)
[2021-11-30] MEDS: DAPTOMYCIN 650 MG in SODIUM CHLORIDE 0.9% 50 ML IV SCH (16:57)
[2021-12-01] VITALS (7 sets, daily range): BP systolic 92–117; BP diastolic 50–81
[2021-12-01] MEDS: IBUPROFEN 200MG TABLET PO PRN (00:50)
[2021-12-01] MEDS: MIDODRINE HCL 5MG TABLET PEG SCH ×3 (06:06→21:54)
[2021-12-01] MEDS: PIPERACILLIN/TAZOBACTAM 3.375 G in DEXTROSE 5% WATER 50 ML IV SCH ×2 (06:06→14:58)
[2021-12-01] MEDS: BLOOD SUGAR DIAGNOSTIC STRIP TEST SCH ×4 (06:07→21:48)
[2021-12-01] MEDS: INSULIN LISPRO 100 UNITS/ML SUBCUT SCH ×4 (06:15→21:56)
[2021-12-01 08:50] LABS: CHLORIDE 124 mEq/L (98-107)
[2021-12-01] MEDS: SODIUM CHLORIDE 0.45% 1000ML IV SCH (09:00)
[2021-12-01 09:04] LABS: CREATINE KINASE 103 IU/L (39-308)
[2021-12-01 10:39] LABS: BASOPHILS % 0.5 % (0.0-2.0); EOSINOPHILS % 0.2 % (0.0-5.0); HEMATOCRIT. 26.3 % (42.0-52.0); HEMOGLOBIN. 8.9 g/dL (14.0-18.0); LYMPHOCYTES % 11.2 % (20.0-50.0); MEAN CORPUSCULAR HEMOGLOBIN 35.2 pg (28.0-32.0); MEAN CORPUSCULAR VOLUME 104.4 fL (80.0-94.0); MEAN PLATELET VOLUME 11.2 fl (7.4-10.4); MONOCYTES % 3.1 % (2.0-8.0); PLATELET 127 x1000/uL (130-400); RED BLOOD CELL COUNT 2.52 mill/uL (4.7-6.1); RED CELL DISTRIBUTION WIDTH 23.1 % (11.6-14.6)
[2021-12-01] MEDS: SODIUM HYPOCHLORITE 0.125% 473ML SOLUTION TOP SCH (11:14)
[2021-12-01] MEDS: DEXTROSE 5% WATER 1,000 ML IV SCH (11:27)
[2021-12-01] MEDS ORDERED: [UNRECOGNIZED DRUG - REMARK] XX SCH (14:15)
[2021-12-01] MEDS: MEROPENEM 1,000 MG in SODIUM CHLORIDE 0.9% 100 ML IV SCH ×2 (15:50→21:54)
[2021-12-01] MEDS: DAPTOMYCIN 650 MG in SODIUM CHLORIDE 0.9% 50 ML IV SCH ×3 (16:49→16:54)
[2021-12-01] MEDS ORDERED: PIPERACILLIN/TAZOBACTAM 3.375 G in DEXTROSE 5% WATER 50 ML IV SCH (22:00)
[2021-12-02] VITALS: BP 106/61
[2021-12-02 04:00] VITALS: BP 102/64
[2021-12-02] MEDS: MEROPENEM 1,000 MG in SODIUM CHLORIDE 0.9% 100 ML IV SCH ×3 (06:19→21:21)
[2021-12-02] MEDS: BLOOD SUGAR DIAGNOSTIC STRIP TEST SCH ×4 (06:23→20:31)
[2021-12-02] MEDS: MIDODRINE HCL 5MG TABLET PEG SCH ×3 (06:23→21:24)
[2021-12-02] MEDS: INSULIN LISPRO 100 UNITS/ML SUBCUT SCH ×4 (06:28→20:31)
[2021-12-02 08:00] VITALS: BP 107/67
[2021-12-02 08:36] LABS: BASOPHILS % 0.2 % (0.0-2.0); EOSINOPHILS % 1.6 % (0.0-5.0); HEMATOCRIT. 21.5 % (42.0-52.0); HEMOGLOBIN. 7.1 g/dL (14.0-18.0); MEAN CORPUSCULAR HEMOGLOBIN 34.7 pg (28.0-32.0); MEAN CORPUSCULAR VOLUME 104.8 fL (80.0-94.0); MEAN PLATELET VOLUME 11.6 fl (7.4-10.4); MONOCYTES % 3.3 % (2.0-8.0); NEUTROPHILS % 84.9 % (40.0-76.0); PLATELET 90 x1000/uL (130-400); RED BLOOD CELL COUNT 2.06 mill/uL (4.7-6.1); RED CELL DISTRIBUTION WIDTH 22.6 % (11.6-14.6)
[2021-12-02] MEDS: DEXTROSE 5% WATER 1,000 ML IV SCH ×2 (09:00→20:27)
[2021-12-02 09:18] LABS: CHLORIDE 119 mEq/L (98-107)
[2021-12-02] MEDS ORDERED: POTASSIUM CHLORIDE 20MEQ/PACKET PO NR (11:45)
[2021-12-02 12:00] VITALS: BP 108/63
[2021-12-02 14:39] LABS: HEMOGLOBIN 6.7 g/dL (14.0-18.0)
[2021-12-02 14:40] LABS: HEMATOCRIT 20.7 % (42.0-52.0); PHOSPHORUS 1.7 mg/dL (2.5-4.9)
[2021-12-02 16:00] VITALS: BP 105/62
[2021-12-02] MEDS: DAPTOMYCIN 650 MG in SODIUM CHLORIDE 0.9% 50 ML IV SCH (17:02)
[2021-12-02 20:00] VITALS: BP 105/62
[2021-12-03] VITALS (10 sets, daily range): BP systolic 104–119; BP diastolic 59–82
[2021-12-03 02:16] LABS: HEMATOCRIT 20.6 % (42.0-52.0); HEMOGLOBIN 6.8 g/dL (14.0-18.0)
[2021-12-03] MEDS: MEROPENEM 1,000 MG in SODIUM CHLORIDE 0.9% 100 ML IV SCH ×2 (05:13→14:09)
[2021-12-03] MEDS: DEXTROSE 5% WATER 1,000 ML IV SCH ×2 (05:13→14:13)
[2021-12-03] MEDS: MIDODRINE HCL 5MG TABLET PEG SCH ×2 (05:13→14:10)
[2021-12-03] MEDS: BLOOD SUGAR DIAGNOSTIC STRIP TEST SCH ×4 (07:10→21:35)
[2021-12-03] MEDS: INSULIN LISPRO 100 UNITS/ML SUBCUT SCH ×4 (07:40→21:00)
[2021-12-03 07:51] LABS: BASOPHILS % 0.1 % (0.0-2.0); EOSINOPHILS % 1.9 % (0.0-5.0); HEMATOCRIT. 23.1 % (42.0-52.0); LYMPHOCYTES % 11.1 % (20.0-50.0); MEAN CORPUSCULAR HEMOGLOBIN 35.5 pg (28.0-32.0); MEAN CORPUSCULAR VOLUME 102.3 fL (80.0-94.0); MEAN PLATELET VOLUME 11.4 fl (7.4-10.4); MONOCYTES % 3.3 % (2.0-8.0); NEUTROPHILS % 83.6 % (40.0-76.0); PLATELET 97 x1000/uL (130-400); RED BLOOD CELL COUNT 2.26 mill/uL (4.7-6.1)
[2021-12-03 08:08] LABS: CHLORIDE 112 mEq/L (98-107)
[2021-12-03] MEDS: ZINC SULFATE 220 MG ( 50 ) CAPSULE GT SCH (08:59)
[2021-12-03] MEDS: ASCORBIC ACID 500 MG TABLET PO SCH (09:00)
[2021-12-03] MEDS ORDERED: POTASSIUM CHLORIDE 20MEQ/PACKET PO NR (10:00)
[2021-12-03 13:02] LABS: HEMOGLOBIN 8.3 g/dL (14.0-18.0)
[2021-12-03] MEDS: DAPTOMYCIN 650 MG in SODIUM CHLORIDE 0.9% 50 ML IV SCH (17:20)
[2021-12-03] MEDS: LEVOFLOXACIN 250MG TABLET PO SCH (17:20)
[2021-12-03 18:58] LABS: HEMATOCRIT 24.3 % (42.0-52.0); HEMOGLOBIN 8.2 g/dL (14.0-18.0)
[2021-12-03] MEDS: METRONIDAZOLE 500MG TABLET PO SCH (21:40)
[2021-12-04] VITALS: BP 131/74
[2021-12-04] MEDS: DEXTROSE 5% WATER 1,000 ML IV SCH (01:00)
[2021-12-04 04:00] VITALS: BP 116/68
[2021-12-04] MEDS: BLOOD SUGAR DIAGNOSTIC STRIP TEST SCH ×4 (07:00→21:13)
[2021-12-04 07:22] LABS: BASOPHILS % 0.5 % (0.0-2.0); EOSINOPHILS % 1.5 % (0.0-5.0); HEMATOCRIT. 23.9 % (42.0-52.0); HEMOGLOBIN. 8.1 g/dL (14.0-18.0); LYMPHOCYTES % 15.9 % (20.0-50.0); MEAN CORPUSCULAR HEMOGLOBIN 33.4 pg (28.0-32.0); MEAN PLATELET VOLUME 10.8 fl (7.4-10.4); MONOCYTES % 4.4 % (2.0-8.0); NEUTROPHILS % 77.7 % (40.0-76.0); PLATELET 97 x1000/uL (130-400); RED BLOOD CELL COUNT 2.42 mill/uL (4.7-6.1); RED CELL DISTRIBUTION WIDTH 25.1 % (11.6-14.6)
[2021-12-04 07:31] LABS: CHLORIDE 107 mEq/L (98-107)
[2021-12-04] MEDS: INSULIN LISPRO 100 UNITS/ML SUBCUT SCH ×4 (07:40→21:00)
[2021-12-04 08:00] VITALS: BP 113/60
[2021-12-04] MEDS ORDERED: POTASSIUM CHLORIDE 10MEQ TABLET SR PO SCH (10:15)
[2021-12-04] MEDS: METRONIDAZOLE 500MG TABLET PO SCH ×2 (10:33→21:21)
[2021-12-04] MEDS: LEVOFLOXACIN 250MG TABLET PO SCH (10:33)
[2021-12-04] MEDS: ZINC SULFATE 220 MG ( 50 ) CAPSULE GT SCH (10:33)
[2021-12-04] MEDS: ASCORBIC ACID 500 MG TABLET PO SCH (10:34)
[2021-12-04] MEDS ORDERED: POTASSIUM CHLORIDE 20MEQ/PACKET PO SCH (11:00)
[2021-12-04 12:00] VITALS: BP 114/63
[2021-12-04] MEDS: DAPTOMYCIN 650 MG in SODIUM CHLORIDE 0.9% 50 ML IV SCH (15:45)
[2021-12-04] MEDS: IBUPROFEN 200MG TABLET PO PRN (15:48)
[2021-12-04 16:00] VITALS: BP 110/68
[2021-12-04 20:00] VITALS: BP 155/86
[2021-12-04] MEDS: IPRATROPIUM/ALBUTEROL 0.5-3(2.5)MG/3ML NEB HHN SCH (20:32)
[2021-12-05] VITALS: BP 118/86
[2021-12-05] MEDS: IPRATROPIUM/ALBUTEROL 0.5-3(2.5)MG/3ML NEB HHN SCH ×3 (01:26→21:02)
[2021-12-05 04:00] VITALS: BP 145/80
[2021-12-05] MEDS: BLOOD SUGAR DIAGNOSTIC STRIP TEST SCH ×4 (06:33→21:10)
[2021-12-05] MEDS: INSULIN LISPRO 100 UNITS/ML SUBCUT SCH ×4 (06:37→21:00)
[2021-12-05 08:00] VITALS: BP 110/84
[2021-12-05] MEDS: ASCORBIC ACID 500 MG TABLET PO SCH (10:18)
[2021-12-05] MEDS: ZINC SULFATE 220 MG ( 50 ) CAPSULE GT SCH (10:19)
[2021-12-05] MEDS: METRONIDAZOLE 500MG TABLET PO SCH ×2 (10:19→21:09)
[2021-12-05] MEDS: LEVOFLOXACIN 250MG TABLET PO SCH (10:20)
[2021-12-05 12:00] VITALS: BP 119/82
[2021-12-05 12:57] LABS: BASOPHILS % 0.6 % (0.0-2.0); EOSINOPHILS % 0.8 % (0.0-5.0); HEMATOCRIT. 27.8 % (42.0-52.0); HEMOGLOBIN. 9.1 g/dL (14.0-18.0); LYMPHOCYTES % 20.5 % (20.0-50.0); MEAN CORPUSCULAR HEMOGLOBIN 33.2 pg (28.0-32.0); MEAN CORPUSCULAR VOLUME 101.7 fL (80.0-94.0); MEAN PLATELET VOLUME 10.6 fl (7.4-10.4); MONOCYTES % 5.4 % (2.0-8.0); NEUTROPHILS % 72.7 % (40.0-76.0); PLATELET 145 x1000/uL (130-400); RED BLOOD CELL COUNT 2.73 mill/uL (4.7-6.1)
[2021-12-05 13:08] LABS: CHLORIDE 108 mEq/L (98-107)
[2021-12-05 16:00] VITALS: BP 115/80
[2021-12-05] MEDS: DAPTOMYCIN 650 MG in SODIUM CHLORIDE 0.9% 50 ML IV SCH (18:28)
[2021-12-05 20:00] VITALS: BP 136/84
[2021-12-06] VITALS: BP 120/87
[2021-12-06] MEDS: IPRATROPIUM/ALBUTEROL 0.5-3(2.5)MG/3ML NEB HHN SCH ×4 (02:33→21:32)
[2021-12-06 04:00] VITALS: BP 120/78
[2021-12-06 06:13] LABS: BASOPHILS % 0.2 % (0.0-2.0); CHLORIDE 109 mEq/L (98-107); EOSINOPHILS % 1.3 % (0.0-5.0); HEMATOCRIT. 29.3 % (42.0-52.0); HEMOGLOBIN. 9.6 g/dL (14.0-18.0); LYMPHOCYTES % 24.9 % (20.0-50.0); MEAN CORPUSCULAR HEMOGLOBIN 33.3 pg (28.0-32.0); MEAN CORPUSCULAR VOLUME 101.3 fL (80.0-94.0); MEAN PLATELET VOLUME 10.3 fl (7.4-10.4); MONOCYTES % 5.2 % (2.0-8.0); NEUTROPHILS % 68.4 % (40.0-76.0); PLATELET 163 x1000/uL (130-400); RED BLOOD CELL COUNT 2.89 mill/uL (4.7-6.1); RED CELL DISTRIBUTION WIDTH 25.8 % (11.6-14.6)
[2021-12-06] MEDS: BLOOD SUGAR DIAGNOSTIC STRIP TEST SCH ×4 (06:18→20:36)
[2021-12-06] MEDS: INSULIN LISPRO 100 UNITS/ML SUBCUT SCH ×4 (06:19→20:39)
[2021-12-06 08:00] VITALS: BP 105/72
[2021-12-06] MEDS: ASCORBIC ACID 500 MG TABLET PO SCH (09:31)
[2021-12-06] MEDS: ZINC SULFATE 220 MG ( 50 ) CAPSULE GT SCH (09:31)
[2021-12-06] MEDS: METRONIDAZOLE 500MG TABLET PO SCH ×2 (09:32→20:36)
[2021-12-06] MEDS: LEVOFLOXACIN 250MG TABLET PO SCH (11:20)
[2021-12-06 12:00] VITALS: BP 108/60
[2021-12-06 16:00] VITALS: BP 115/75
[2021-12-06] MEDS: DAPTOMYCIN 650 MG in SODIUM CHLORIDE 0.9% 50 ML IV SCH (16:23)
[2021-12-06 20:00] VITALS: BP 114/72
[2021-12-07] VITALS: BP 136/66
[2021-12-07] MEDS: IPRATROPIUM/ALBUTEROL 0.5-3(2.5)MG/3ML NEB HHN SCH ×3 (03:07→14:44)
[2021-12-07 04:00] VITALS: BP 118/77
[2021-12-07] MEDS: BLOOD SUGAR DIAGNOSTIC STRIP TEST SCH ×3 (05:35→18:06)
[2021-12-07] MEDS: INSULIN LISPRO 100 UNITS/ML SUBCUT SCH ×3 (05:35→17:40)
[2021-12-07 06:45] LABS: BASOPHILS % 0.4 % (0.0-2.0); EOSINOPHILS % 1.9 % (0.0-5.0); HEMATOCRIT. 29.2 % (42.0-52.0); HEMOGLOBIN. 9.5 g/dL (14.0-18.0); LYMPHOCYTES % 26.7 % (20.0-50.0); MEAN CORPUSCULAR HEMOGLOBIN 33.6 pg (28.0-32.0); MEAN CORPUSCULAR VOLUME 102.9 fL (80.0-94.0); MEAN PLATELET VOLUME 10.1 fl (7.4-10.4); MONOCYTES % 5.4 % (2.0-8.0); NEUTROPHILS % 65.6 % (40.0-76.0); PLATELET 162 x1000/uL (130-400); RED BLOOD CELL COUNT 2.83 mill/uL (4.7-6.1); RED CELL DISTRIBUTION WIDTH 25.4 % (11.6-14.6)
[2021-12-07 06:59] LABS: CHLORIDE 112 mEq/L (98-107)
[2021-12-07 08:00] VITALS: BP 100/70
[2021-12-07] MEDS: METRONIDAZOLE 500MG TABLET PO SCH (09:54)
[2021-12-07] MEDS: ASCORBIC ACID 500 MG TABLET PO SCH (09:54)
[2021-12-07] MEDS: ZINC SULFATE 220 MG ( 50 ) CAPSULE GT SCH (09:54)
[2021-12-07] MEDS: IBUPROFEN 200MG TABLET PO PRN (10:50)
[2021-12-07] MEDS: LEVOFLOXACIN 250MG TABLET PO SCH (10:50)
[2021-12-07 12:00] VITALS: BP 115/72
[2021-12-07] MEDS ORDERED: ACETAMINOPHEN 650MG/20.3ML UDC PEG NR (15:45)
[2021-12-07 16:00] VITALS: BP 118/73
[2021-12-07] MEDS: DAPTOMYCIN 650 MG in SODIUM CHLORIDE 0.9% 50 ML IV SCH (16:03)
[2021-12-07 19:05] VITALS: BP 118/73
== END 2021-12-07 21:30 | DRG 853 ==
LOC: ER 09:22 → MICUSO 11:51 → EDBEDREQSVC 12:15 → EDBEDREQ 12:15 → EDBEDREQSVC 12:54 → MICUNO 10-29 13:55 → 6WST 11-07 18:30 → 7WST 11-11 01:15 → 8WST 11-24 20:07
PROVIDERS: ADMIT Internal Medicine Nephrology; ATTEND Internal Medicine Nephrology
PROC: 02HV33Z Insertion of Infusion Device into Superior Vena Cava, Percutaneous Approach (ICD-10-PCS; 2021-10-26)
PROC: B548ZZA Ultrasonography of Superior Vena Cava, Guidance (ICD-10-PCS; 2021-10-26)
PROC: 0JB70ZZ Excision of Back Subcutaneous Tissue and Fascia, Open Approach (ICD-10-PCS; principal; 2021-10-30)
PROC: 30233N1 Transfusion of Nonautologous Red Blood Cells into Peripheral Vein, Percutaneous Approach (ICD-10-PCS; 2021-11-20)
PROC: 0QB10ZZ Excision of Sacrum, Open Approach (ICD-10-PCS; 2021-11-26)
DX: A41.9 Sepsis, unspecified organism (principal); L89.154 Pressure ulcer of sacral region, stage 4; R65.21 Severe sepsis with septic shock; J69.0 Pneumonitis due to inhalation of food and vomit; E43 Unspecified severe protein-calorie malnutrition; J96.01 Acute respiratory failure with hypoxia; K85.90 Acute pancreatitis without necrosis or infection, unspecified; U07.1 COVID-19; J12.82 Pneumonia due to coronavirus disease 2019; G93.40 Encephalopathy, unspecified; E87.0 Hyperosmolality and hypernatremia; N17.9 Acute kidney failure, unspecified; M62.82 Rhabdomyolysis; N39.0 Urinary tract infection, site not specified; M46.28 Osteomyelitis of vertebra, sacral and sacrococcygeal region; D63.8 Anemia in other chronic diseases classified elsewhere; D53.9 Nutritional anemia, unspecified; D69.6 Thrombocytopenia, unspecified; F41.9 Anxiety disorder, unspecified; F79 Unspecified intellectual disabilities; K80.20 Calculus of gallbladder without cholecystitis without obstruction; R25.1 Tremor, unspecified; R74.01 Elevation of levels of liver transaminase levels; E66.9 Obesity, unspecified; B96.20 Unspecified Escherichia coli [E. coli] as the cause of diseases classified elsewhere; R73.9 Hyperglycemia, unspecified; L27.0 Generalized skin eruption due to drugs and medicaments taken internally; T50.995A Adverse effect of other drugs, medicaments and biological substances, initial encounter; Y92.238 Other place in hospital as the place of occurrence of the external cause; E86.0 Dehydration; E86.1 Hypovolemia; R13.10 Dysphagia, unspecified; I10 Essential (primary) hypertension; R74.8 Abnormal levels of other serum enzymes; Q90.9 Down syndrome, unspecified; Z93.1 Gastrostomy status; Z78.1 Physical restraint status; Z68.37 Body mass index [BMI] 37.0-37.9, adult; S82.831A Other fracture of upper and lower end of right fibula, initial encounter for closed fracture
CPT/HCPCS: 36415; 36600; 71045; 71250; 73600; 74018; 74176; 76705; 76770; 76937; 80048; 80053; 80076; 80165; 80202; 81003; 82150; 82270; 82375; 82550; 82607; 82728; 82746; 82805; 82962; 83540; 83550; 83605; 83735; 84100; 84145; 84443; 84484; 84550; 85014; 85018; 85025; 85027; 85651; 86140; 86850; 86900; 86920; 87070; 87075; 87077; 87186; 87426; 87804; 88304; 88305; 88311; 93005; 93970; 94640; 97162; 99291; A6261; C1725; J0515; J0690; J0878; J1100; J1200; J1650; J1815; J2185; J2250; J2370; J2405; J2543; J2930; J3370; J3490; J7030; J7040; J7042; J7050; J7060; J7070; J7608; P9016; Q9963